=== PATIENT | female | born 1995 | race Caucasian/White ===

== ENCOUNTER 2021-12-22 10:27 | Outpatient (CLI) | payer BC, SELFPAY ==
[2021-12-22 12:34] LABS: Cholesterol* 192 mg/dL (90-199); HDL Cholesterol* 45 mg/dL (>=50); LDL Cholesterol Calculated 127 mg/dL (<100); Triglycerides* 100 mg/dL (40-149)
[2021-12-22 12:34] LABS: Glucose* 93 mg/dL (60-115)
[2021-12-24 02:58] LABS: Estradiol Premenol Female 54 pg/mL
[2021-12-24 18:00] LABS: Follicle Stimulating Hormone 6.5 IU/L
[2021-12-25 21:34] LABS: Anti-Mullerian Hormone 3.936 ng/mL (0.401-16.015)
== END 2021-12-22 10:28 | disposition home or self-care (01) ==
PROVIDERS: Visit Provider Physician Assistant
DX: R73.03 Prediabetes (principal); Z31.41 Encounter for fertility testing; Z13.6 Encounter for screening for cardiovascular disorders
CPT/HCPCS: 80061; 82670; 82947; 83001; 83520

== ENCOUNTER 2023-04-02 10:39 | Outpatient (CLI) | payer BC, SELFPAY ==
[2023-04-02 15:50] LABS: Chlamydia DNA Amplified* NOT DETECTED (No Detected); GC DNA Amplified* NOT DETECTED (No Detected)
== END 2023-04-02 10:40 | disposition home or self-care (01) ==
PROVIDERS: Visit Provider Physician Assistant
DX: O09.811 Supervision of pregnancy resulting from assisted reproductive technology, first trimester (principal); Z3A.10 10 weeks gestation of pregnancy
CPT/HCPCS: 86317; 86592; 86703; 86704; 86706; 86762; 86778; 86787; 86803; 86850; 86900; 86901; 87086; 87340; 87491; 87591

== ENCOUNTER 2023-06-13 08:09 | Outpatient (CLI) | payer BC, SELFPAY ==
--- OUTSIDE RECORDS SUMMARY | 2023-06-13 08:12 | XMS_ITS | Encounter Summary ---
Author Name Unknown Organization [facility] Address [address] [place] [address]. [place] [address] Care Team Providers Care Regrader Name Role Phone Katelyn Khan APRN COORDINATOR CARDIOPULMONARY SERVICES Primary Care Pro vider Katelyn Khan APRN COORDINATOR CARDIOPULMONARY SERVICES Unavailable Encounter Details Date Type Department Care Team (Late st Contact Info) Description 04/16/2023 MyC Medical Advice M [facility] [address] [facility] [address] [place] [address] Ema Guillory Social History Tobacco Use Types Packs/Day Years Used Date Smoking Tobacco: Never Smokeless Tobacco: Never Alcohol Use Standard Drinks/Week Comments Yes 0 (1 standard drink = 0.6 oz pur e alcohol) One drink per week Social Connection and Isolation Panel [NHANES] A nswer Date Recorded In a typical week, how many times do you talk on the phone with family, friends, or neighbors? Once a week 10/22/2022 How often do you get together with friends or re latives? Once a week 10/22/2022 How often do you attend methodist or moravian serv ices? Never 10/22/2022 Do you belong to any clubs o r organizations such as methodist groups, unions, fraternal or athletic groups, or school groups? No 10/22/2022 Attends Club or Organization Meetings Not on airam e 10/22/2022 Are you , , di vorced, , never , or living with a partner? 10/22/2022 AUDIT-C Answer Date Recorded Q1: How often do you have a drink containing alc ohol? 2-4 times a month 10/22/2022 Q2: How many drinks containi ng alcohol do you have on a typical day when you are drinking? 1 or 2 10/22/2022 Q3: How often do you have si x or more drinks on one occasion? Less than monthly 10/22/2022 Overall Financial Resource Strain (CARDIA) Answe r Date Recorded How hard is it for you to pa y for the very basics like food, housing, medical care, and heating? Not very hard 10/22/2022 PHQ-2 Answer Date Recorded PHQ-2 Score 0 10/22/2022 [facility] - Occupational Stress Questionnaire Answer Date Recorded Do you feel stress - tense, restless, nervous, or anxious, or unable to sleep at night because your mind is troubled all the time - these days? To some extent 10/22/2022 Exercise Vital Sign Answer Date Recorde d On average, how many days pe r week do you engage in moderate to strenuous exercise (like a brisk walk)? 6 days 10/22/2022 On average, how many minutes do you engage in exercise at this level? 60 min 10/22/2022 Hunger Vital Sign Answer Date Recorded Within the past 12 months, y ou worried that your food would run out before you got the money to buy more. Never true 10/23/19 23 Within the past 12 months, t he food you bought just didn't last and you didn't have money to get more. Never true 10/22/2022 PRAPARE - Transportation Answer Date Re corded In the past 12 months, has l ack of transportation kept you from medical appointments or from getting medications? No 10/02 In the past 12 months, has l ack of transportation kept you from meetings, work, or from getting things needed for daily living? No 10/22/2022 Housing Stability Vital Sign Answer Durga e Recorded In the last 12 months, was t here a time when you were not able to pay the mortgage or rent on time? No 10/22/2022 In the last 12 months, how many places have you lived? 1 10/22/2022 In the last 12 months, was t here a time when you did not have a steady place to sleep or slept in a nursing home (including now)? No 10/22/2022 Adolescent Education Answer Date Record ed Getting School Help Needed Not on file 02/22 Education Answer Date Recorded What is the highest level of school you have completed or the highest degree you have received? Associate degree: academic program 06/12/2019 Sex and Gender Information Value Date Recorded Sex Assigned at Female 04/04/2019 1:33 AM CDT Gender Identity Female 04/04/2019 1:33 AM CDT Sexual Orientation Bisexual 04/04/2019 1: 33 AM CDT documented as of this encounter Plan of Treatment Upcoming Encounters Date Type Department Care Team (Late st Contact Info) Description 12/09/2023 10:00 AM CDT Office Visit [facility] [address] [place] [address] Drive [address] [place] [phone] Katelyn Khan APRN COORDINATOR CARDIOPULMONARY SERVICES [address] [place] [address] [place] [address] documented as of this encounter Visit Diagnoses Not on filedocumented in this encounter Additional Health Concerns Assessment Noted Time PHQ-9 Depression Total Score: 7 10/23/19 23 10:13 AM CDT documented as of this encounter Care Teams Regrader Relationship Specialty Start Date End Date Katelyn Khan APRN COORDINATOR CARDIOPULMONARY SERVICES [address] [place] [address] [place] [address] PCP - General Family Practice 06/12/19 Katelyn Khan APRN COORDINATOR CARDIOPULMONARY SERVICES [address] [place] [address] [place] [address] Assigned PCP 05/21/19 documented as of this encounter
--- OUTSIDE RECORDS SUMMARY | 2023-06-13 08:12 | XMS_ITS | Referral Summary ---
Author Name Unknown [facility] Address [address] [place] [address] Care Team Providers Care Paving Foreman Name Role Phone Katelyn Khan APRN, CNP Primary Care Pro vider Katelyn Khan APRN, CNP Unavailable Encounters Date Type Department Care Team Description 06/04/2023 7:00 AM JET OPERATOR Virtual Visit [address] [place] [phone] Katelyn Khan APRN CNP Moderate episode of recurrent major depressive disorder (H); Anxiety 05/15/[address] [place] [address] Katelyn Khan APRN CNP Medication Refill 04/16/2023 MyC Medical Advice [address] [place] [address] Ema Guillory 04/14/[address] [place] [address] Katelyn Khan APRN CNP Medication Refill from Last 3 Months Allergies Active Allergy Reactions Criticality Noted Date Comments Seasonal Allergies 01/25/2021 Medications Medication Sig Dispensed Refills Start Date End Date Status fluticasone (VERAMYST) 27.5 MCG/SPRAY spray [place] 2 sprays into both nostrils daily 0 Active cetirizine (ZYRTEC) 10 MG tablet Take 10 mg by mouth daily 0 Active Vit-Fe Fumarate-FA ( MULTIVITAMIN PLUS IRON) 27-1 MG TABS 0 Active pyridOXINE (VITAMIN B-6) 25 MG tablet 0 03/02/2023 Active famotidine (PEPCID) 20 MG tablet 0 05/28/2023 Active aspirin 81 MG EC tablet 0 04/08/2023 Active doxylamine (UNISOM) 25 MG TABS tablet 0 03/02/2023 Active buPROPion (WELLBUTRIN XL) 150 MG 24 hr tabletIndications :Moderate episode of recurrent major depressive disorder (H),Anxiety Take 1 tablet (150 mg) by mouth every morning 90 tablet 1 06/04/2023 Active fluconazole (DIFLUCAN) 200 MG tablet TAKE 1 TABLET BY MOUTH 1 TIME ONLY 0 10/25/2021 4 Discontinued norethindrone (AYGESTIN) 5 MG tablet 0 10/17/2022 4 Discontinued buPROPion (WELLBUTRIN XL) 150 MG 24 hr tabletIndications :Moderate episode of recurrent major depressive disorder (H),Anxiety,Morbi d obesity (H) Take 1 tablet (150 mg) by mouth every morning 30 tablet 0 04/16/2023 3 Discontinued buPROPion (WELLBUTRIN XL) 150 MG 24 hr tabletIndications :Moderate episode of recurrent major depressive disorder (H),Anxiety,Morbi d obesity (H) TAKE 1 TABLET(150 MG) BY MOUTH EVERY MORNING 30 tablet 0 05/15/2023 4 Discontinued(Lio dougherty (No AVS)) Active Problems Problem Noted Date Diagnosed Date Morbid obesity 09/29/2020 Moderate episode of recurrent major depressive d isorder 06/12/2019 Anxiety 06/12/2019 Depression with anxiety 06/20/2016 Acne 06/15/2014 Allergic rhinitis 06/15/2014 Dysmenorrhea 05/25/2014 Resolved Problems Problem Noted Date Diagnosed Date Resolved Date Pain in joint involving ankle and foot 08/24/2013 09/29/2020 Edema 08/24/2013 09/29/2020 Ankle sprain 08/24/2013 09/29/2020 Immunizations Name Administration Dates Next Due COVID-19 Bivalent 12+ (Pfizer) 10/22/2022 COVID-19 MONOVALENT 12+ (Pfizer) 06/21/2021,09/02,09/06/2020 DTAP (<7y) 10/18/2000, 7,04/20/1996,02/16,1995 Flu, Unspecified 05/03/1998,03/19/1998 HEPATITIS A (PEDS 12M-18Y) 01/13/2007 HPV Quadrivalent 04/17/2011,03/11/2009, 8 HepA, Unspecified 01/14/2006 HepA-Peds, Unspecified 01/14/2006 HepB, Unspecified 04/20/1996,1995,10/31/18 96 Hib, Unspecified 04/19/1997, 6,02/17/1996,12/15 Influenza (H1N1) 05/05/2009 Influenza Vaccine >6 months,quad, PF ,04/11/2020,06/12/2019,03/11 MMR 11/02/1999,01/15/1997 Meningococcal ACWY (Menactra??) 05/02/2012,01/13,01/13/2007 Meningococcal Mcv4 Conjugate,unspecified 01/13/2007 Polio, Unspecified 04/20/1996,02/17/1996, 996 Poliovirus, inactivated (IPV) 11/02/1999 Rabies - IM Diploid Cell Culture 06/19/2019,06/03 TDAP Vaccine (Adacel) 07/23/2016,01/13/2007 Varicella 01/13/2007,01/15/1997 Social History Tobacco Use Types Packs/Day Years [...] week 10/22/2022 How often do you attend yazidism or protestant serv ices? Never 10/22/2022 Do you belong to any clubs o r organizations such as yazidism groups, unions, fraternal or athletic groups, or [...] on one occasion? Less than monthly 10/22/2022 PHQ-2 Answer Date Recorded PHQ-2 Score 0 10/22/2022 [facility] - Occupational Stress Questionnaire Answer Date Recorded [...] exercise at this level? 60 min 10/22/2022 Adolescent Education Answer Date Record ed Getting School Help Needed Not on file 02/22 Food Insecurity Answer Date Recorded Within the past 12 months, d id you worry that your food would run out before you got money to buy more? No 06/01/2023 Within the past 12 months, d id the food you bought just not last and you didn? t have money to get more? No 06/01/2023 Housing Stability Answer Date Recorded Do you have housing? Yes 06/01/2023 Are you worried about losing your housing? No 06/01/2023 Financial Resource Strain Answer Date R ecorded Within the past 12 months, h ave you or your family members you live with been unable to get utilities (heat, electricity) when it was really needed? No 06/01/2023 Transportation Needs Answer Date Record ed Within the past 12 months, h as lack of transportation kept you from medical appointments, getting your medicines, non-medical meetings or appointments, work, or from getting things that you need? No 06/01/2023 Education Answer Date Recorded What is the highest level of school you have completed or the highest degree you have received? Associate degree: academic program 06/12/2019 Sex and Gender Information Value Date Recorded Sex Assigned at Female 04/04/2019 1:33 AM CDT Gender Identity Female 04/04/2019 1:33 AM CDT Sexual Orientation Bisexual 04/04/2019 1: 33 AM CDT Last Filed Vital Signs Vital Sign Reading Time Taken Comments Blood Pressure 102/74 10/22/2022 10:34 AM CDT Pulse 88 10/22/2022 10:34 AM CDT Temperature 36.3 ??C (97.4 ??F) 10/22/2022 10:34 AM C DT Respiratory Rate 16 10/22/2022 10:34 AM CDT Oxygen Saturation 100% 10/22/2022 10:34 AM CDT Inhaled Oxygen Concentration - - Weight 119.7 kg (264 lb) 10/22/2022 10:34 AM CDT Height 173 cm (5' 8.11) 10/22/2022 10:34 AM CDT Body Mass Index 40.01 10/22/2022 10:34 AM CDT Plan of Treatment Upcoming Encounters Date Type Department Care Team (Late st Contact Info) Description 12/09/2023 10:00 AM CDT [facility] [address] [place] [address] Katelyn Khan, [facility] [address] [facility] [place] [address] Care Teams Paving Foreman Relationship Specialty Start Date End Date Katelyn Khan APRN BIODIESEL ENGINE SPECIALIST [address] [facility] [place] [address] PCP - General Family Practice 06/12/19 Katelyn Khan APRN BIODIESEL ENGINE SPECIALIST [address] [facility] [place] [address] Assigned PCP 05/21/19
--- OUTSIDE RECORDS SUMMARY | 2023-06-13 08:12 | XMS_ITS | Clinical Summary ---
Author Name Unknown Organization [facility] Address [address] [place] [address] Care Team Providers Care Bi Application Developer Name Role Phone Katelyn Khan APRN CHEMICAL PREPARER Primary Care Pro vider Katelyn Khan APRN CHEMICAL PREPARER Unavailable Allergies Active Allergy Reactions Criticality Noted Date Comments Seasonal Allergies 01/25/2021 Medications Medication Sig Dispensed Refills Start Date End Date Status fluticasone (VERAMYST) 27.5 MCG/SPRAY spray [place] 2 sprays into both nostrils daily 0 [...] EVERY MORNING 30 tablet 0 05/15/2023 4 Discontinued(Reo rder (No AVS)) Active Problems Problem Noted Date Diagnosed Date Morbid obesity 09/29/2020 Moderate episode of recurrent major depressive d isorder 06/12/2019 Anxiety 06/12/2019 Depression with anxiety 06/20/2016 Acne 06/15/2014 Allergic rhinitis 06/15/2014 Dysmenorrhea 05/25/2014 Resolved Problems Problem Noted Date Diagnosed Date Resolved Date Pain in joint involving ankle and foot 08/24/2013 09/29/2020 Edema 08/24/2013 09/29/2020 Ankle sprain 08/24/2013 09/29/2020 Encounters Date Type Department Care Team Description 06/04/2023 7:00 AM TELETRAY OPERATOR Virtual Visit M [address] [place] [address] Katelyn Khan, MARS ZARAGOZA Moderate episode of recurrent major depressive disorder (H); Anxiety 05/15/2023 Refill M [address] [place] [address] Katelyn Khan, MARS CHEMICAL PREPARER Medication Refill 04/16/2023 MyC Medical Advice M [address] [place] [address] Ema Guillory 04/14/2023 Refill M [address] [place] [address] Katelyn Khan, PLASTIC PARTS FABRICATOR CHEMICAL PREPARER Medication Refill from Last 3 Months Immunizations Name Administration Dates Next Due COVID-19 [...] 06/19/2019,06/03 TDAP Vaccine (Adacel) 07/23/2016,01/13/2007 Varicella 01/13/2007,01/15/1997 Family History Medical History Relation Comments Cerebrovascular Disease Father Prostate Cancer Maternal Grandfather Other Cancer Mother Ovarian cancer Ovarian Cancer Mother Depression Other Great uncle-aranda rnal Diabetes Paternal Grandfather Prostate Cancer Paternal Grandfather Relation Status Comments Father Maternal Grandfather Mother Other Paternal Grandfather Social History Tobacco Use Types Packs/Day Years [...] week 10/22/2022 How often do you attend christianity or gnosticist serv ices? Never 10/22/2022 Do you belong to any clubs o r organizations such as christianity groups, unions, fraternal or athletic groups, or [...] Answer Date Recorded PHQ-2 Score 0 10/22/2022 [facility] - Occupational [...] Description 12/09/2023 10:00 AM CDT Office Visit [facility] [address] [facility] [place] [address] Katelyn Khan, MARS CHEMICAL PREPARER [address] [facility] [place] [address] Health Maintenance Due Date Last Done Comments PAP 04/03/2022 04/03/2019, 02/2018, 06/11/2017 COVID-19 Vaccine ( season) 2023 10/22/2022, 06/21/2021, 09/27/2020, Additional history exists PHQ-9 04/24/2023 10/22/2022, 12/0 11/2021, 09/15/2021, Additional history exists ANNUAL REVIEW OF HM ORDERS 10/23/202310/22, 09/15/2021, 09/29/2020 YEARLY PREVENTIVE VISIT 10/23/2023 10/23/19 23, 08/10/2021, 12/30/2020, Additional history exists ADVANCE CARE PLANNING 09/29/2025 09/29/2020 DTAP/TDAP/TD IMMUNIZATION (8 - Td or Tdap) 07/23/2026 07/23/2016, 01/13/2007, 10/18/2000, Additional history exists HEPATITIS B IMMUNIZATION Completed 996, 04/20/1996, 1995, Additional history exists IPV IMMUNIZATION Completed 11/02/1999, , 04/20/1996, Additional history exists HPV IMMUNIZATION Completed 04/17/2011, , 03/11/2009, Additional history exists MENINGITIS IMMUNIZATION Completed 05/02/20 12, 01/13/2007, 01/13/2007, Additional history exists CHLAMYDIA SCREENING Discontinued 06/12/2019 ( Declined), 06/11/2017 HIV SCREENING Addressed 06/12/2019 (Declined) Overr idden with the intention of not completing the topic DEPRESSION ACTION PLAN Completed 09/29/2020 HEPATITIS C SCREENING Completed 08/11/2021 INFLUENZA VACCINE Completed 04/18/2023, , 06/21/2021, Additional history exists Pneumococcal Vaccine: Pediatrics (0 to 5 Years) and At-Risk Patients (6 to 64 Years) Aged Out No longer eligible based on patient's age to complete this topic RSV MONOCLONAL ANTIBODY Aged Out No l onger eligible based on patient's age to complete this topic Care Teams Bi Application Developer Relationship Specialty Start Date End Date Katelyn Khan APRN CHEMICAL PREPARER [address] [place] [address] [place] [address] PCP - General Family Practice 06/12/19 Katelyn Khan APRN CHEMICAL PREPARER [address] [place] [address] DR RICHADRS, KALANI [id number] Assigned PCP 05/21/19
--- OUTSIDE RECORDS SUMMARY | 2023-06-13 08:12 | XMS_ITS | Clinical Summary ---
Author Name Unknown Organization [facility] Address [address] [facility] [place] [address] Care Team Providers Care Newspaper Correspondent Name Role Phone Provider, No Primary Primary Care Provider Unava ilable Allergies Active Allergy Reactions Criticality Noted Date Comments Environmental Substances Other Low 07/04/2018 Pollen- Itchy/swollen eyes Medications Medication Sig Dispensed Refills Start Date End Date Status cetirizine (AKA: ZYRTEC) 10 mg oral Tablet Take 10 mg by mouth once daily. 0 Active fluticasone propionate (FLONASE ALLERGY RELIEF NASL) 2 Sprays by nasal route once daily. 0 Active oral contraceptive tablet (AKA: CONTROL TABLET) oral Tablet Take 1 tablet by mouth. 0 Active Active Problems No known active problems Social History Tobacco Use Types Packs/Day Years Used Date Smoking Tobacco: Never Smokeless Tobacco: Never Alcohol Use Standard Drinks/Week Comments Yes 0 (1 standard drink = 0.6 oz pur e alcohol) occational Sex and Gender Information Value Date Recorded Sex Assigned at Not on file Gender Identity Not on file Sexual Orientation Not on file Last Filed Vital Signs Vital Sign Reading Time Taken Comments Blood Pressure 143/92 07/04/2018 12:35 PM CORPORATE SALES TRAINER Pulse 85 07/04/2018 12:35 PM CORPORATE SALES TRAINER Temperature 36.7 ??C (98 ??F) 07/04/2018 12:35 PM CORPORATE SALES TRAINER Respiratory Rate 16 07/04/2018 12:35 PM CORPORATE SALES TRAINER Oxygen Saturation 99% 07/04/2018 12:35 PM CORPORATE SALES TRAINER Inhaled Oxygen Concentration - - Weight 111.6 kg (246 lb) 07/04/2018 12:35 PM CORPORATE SALES TRAINER Height - - Body Mass Index - - Plan of Treatment Not on file Care Teams Newspaper Correspondent Relationship Specialty Start Date End Date Provider, [place] [address] PCP - General 06/13/18 Additional Source Comments PLEASE NOTE: Replies to this message will not be received.[facility]
--- OUTSIDE RECORDS SUMMARY | 2023-06-13 08:12 | XMS_ITS | Encounter Summary ---
Author Name Unknown Organization [facility] Address [address] [place] [address]. [place] [address] Care Team Providers Care Automatic I Threading Machine Feeder Name Role Phone Katelyn Khan APRN MEDICAL COLLECTIONS Primary Care Pro vider Katelyn Khan APRN MEDICAL COLLECTIONS Unavailable Reason for Visit * Reason Comments Medication Refill Encounter Details Date Type Department Care Team (Late st Contact Info) Description 05/15/2023 Refill [facility] [address] [place] [address] Katelyn Khan APRN MEDICAL COLLECTIONS [facility] KALANI RICHARDS [id number] Medication Refill Social History Tobacco Use Types Packs/Day Years [...] week 10/22/2022 How often do you attend protestant or adventist serv ices? Never 10/22/2022 Do you belong to any clubs o r organizations such as protestant groups, unions, fraternal or athletic groups, or [...] Answer Date Recorded PHQ-2 Score 0 10/22/2022 [facility] - Occupational [...] place to sleep or slept in a long-term (including now)? No 10/22/2022 Adolescent Education Answer [...] Description 12/09/2023 10:00 AM CDT Office Visit [facility] [address] [place] [address] Drive [address] [place] [phone] Katelyn Khan APRN MEDICAL COLLECTIONS [address] [place] [address] [place] [address] documented as of this encounter Visit Diagnoses Diagnosis Moderate episode of recurrent major depressive disorder (H) Anxiety Anxiety state, unspecified Morbid obesity (H) Morbid obesity documented in this encounter Additional Health Concerns Assessment Noted Time PHQ-9 Depression Total Score: 7 10/23/19 23 10:13 AM CDT documented as of this encounter Care Teams Automatic I Threading Machine Feeder Relationship Specialty Start Date End Date Katelyn Khan APRN MEDICAL COLLECTIONS [address] [place] [address] [place] [address] PCP - General Family Practice 06/12/19 Katelyn Khan APRN MEDICAL COLLECTIONS [address] [place] [address] [place] [address] Assigned PCP 05/21/19 documented as of this encounter
--- OUTSIDE RECORDS SUMMARY | 2023-06-13 08:12 | XMS_ITS | Encounter Summary ---
Author Name Unknown Organization [place] Address [address] [place] [address]. [place] [address] Care Team Providers Care Gluing Machine Feeder Name Role Phone Katelyn Feliciano APRN AFRICAN HISTORY PROFESSOR Primary Care Pro vider Katelyn Feliciano APRN AFRICAN HISTORY PROFESSOR Unavailable Encounter Details Date Type Department Care Team (Late st Contact Info) Description 06/04/2023 7:00 AM FORMULA ROOM WORKER Virtual Visit [facility] [place] [address] [place] [phone] Katelyn Feliciano APRN [place] [id number] [facility] [place] R[place]ARDS [id number] Moderate episode of recurrent major depressive disorder (H); Anxiety Social History Tobacco Use Types Packs/Day Years [...] week 10/22/2022 How often do you attend congregation or taoist serv ices? Never 10/22/2022 Do you belong to any clubs o r organizations such as congregation groups, unions, fraternal or athletic groups, or [...] Answer Date Recorded PHQ-2 Score 0 10/22/2022 [facility] of Occupat ional Health - Occupational Stress [...] AM CDT documented as of this encounter Progress Notes * Katelyn Feliciano APRN CNP - 06/04/2023 7:00 AM CST Elva is a 27 year old who is being evaluated via a billable video visit. How would you like to obtain your AVS? MyChart If the video visit is dropped, the invitation should be resent by: Will anyone else be joining your video visit? No Assessment & Plan Moderate episode of recurrent major depressive disorder (H) Reviewed potential risk during , she had discusssed this with her OB team, no concerns will continue as is. - buPROPion (WELLBUTRIN XL) 150 MG 24 hr tablet; Take 1 tablet (150 mg) by mouth every morning Anxiety stable - buPROPion (WELLBUTRIN XL) 150 MG 24 hr tablet; Take 1 tablet (150 mg) by mouth every morning BMI: Estimated body mass index is 40.01 kg/m?? as calculated from the following: Height as of 10/22/22: 1.73 m (5' 8.11). Weight as of 10/22/22: 119.7 kg (264 lb). Katelyn Feliciano APRN CNP [facility] [place] Elva is a 27 year old, presenting for the following health issues: No chief complaint on file. She is 19 wks . History of depression and anxiety, doing well on current regime. 09/15/2021 9:10 AM 05/09/2022 11:23 AM 10/22/2022 10:13 AM PHQ PHQ-9 Total Score 3 3 7 Q9: Thoughts of better off /self-harm past 2 weeks Not at all Not at all Not at all 08/10/2021 4:18 PM 05/09/2022 11:24 AM 06/01/2023 10:33 AM YADY-7 SCORE Total Score 6 (mild anxiety) 2 (minimal anxiety) 4 (minimal anxiety) Total Score 6 2 4 HPI Review of Systems Objective Vitals: No vitals were obtained today due to virtual visit. Physical Exam GENERAL: Healthy, alert and no distress EYES: Eyes grossly normal to inspection. No discharge or erythema, or obvious scleral/conjunctival abnormalities. RESP: No audible wheeze, cough, or visible cyanosis. No visible retractions or increased work of breathing. SKIN: Visible skin clear. No significant rash, abnormal pigmentation or lesions. NEURO: Cranial nerves grossly intact. Mentation and speech appropriate for age. PSYCH: Mentation appears normal, affect normal/bright, judgement and insight intact, normal speech and appearance well-groomed. Video-Visit Details Type of service: Video Visit Originating Location (pt. Location): Home Distant Location (provider location): On-site Platform used for Video Visit: Rubina ULA ROOM WORKER documented in this encounter Plan of Treatment Upcoming Encounters Date Type Department Care Team (Late st Contact Info) Description 12/09/2023 10:00 AM CDT Office Visit [facility] [place] [address] [place] [address] Drive [address] [place] [phone] Katelyn Feliciano APRN CNP [address] [place] [address] [place] [address] documented as of this encounter Visit Diagnoses Diagnosis Moderate episode of recurrent major depressive disorder (H) Anxiety Anxiety state, unspecified documented in this encounter Additional Health Concerns Assessment Noted Time PHQ-9 Depression Total Score: 7 10/23/19 23 10:13 AM CDT documented as of this encounter Care Teams Gluing Machine Feeder Relationship Specialty Start Date End Date Katelyn Feliciano APRN CNP [address] [place] [address] [place] [address] PCP - General Family Practice 06/12/19 Katelyn Feliciano APRN CNP [address] [place] [address] [place] [address] Assigned PCP 05/21/19 documented as of this encounter
--- OUTSIDE RECORDS SUMMARY | 2023-06-13 08:13 | XMS_ITS | Encounter Summary ---
Author Name Unknown Organization [place] Address [facility] [place] [address] Care Team Providers Care Tobacco Weigher Name Role Phone Katelyn Khan APRN SENIOR VICE PRESIDENT Primary Care Pro vider Juan Antonio Arteaga RN Unavailable Unav ailable Katelyn Khan APRN SENIOR VICE PRESIDENT Unavailable Harish Zavaleta SENIOR MARKETING MANAGER Unavailable Encounter Details Date Type Department Care Team (Late st Contact Info) Description 09/14/2019 MyC Medical Advice [facility] [place] [address] [place] [phone] Kim Quintanilla, YASMIN Social History Tobacco Use Types Packs/Day Years Used Date Smoking Tobacco: Never Smokeless Tobacco: Never Alcohol Use Standard Drinks/Week Comments Yes 0 (1 standard drink = 0.6 oz pur e alcohol) One drink per week Social Connection and Isolat ion Panel [NHANES] Answer Date Recorded Frequency of Communication w ith Friends and Family More than three times a week 06/12/2019 Frequency of Social Gatherin gs with Friends and Family More than three times a week 06/12/2019 Attends Adventism Services Never 06/12 Active Member of Clubs or Organizations No 06/12/2019 Attends Club or Organization Meetings Never 06/12/2019 Marital Status Living with partner 06/12/2019 Overall Financial Resource Strain (CARDIA) Answe r Date Recorded How hard is it for you to pa y for the very basics like food, housing, medical care, and heating? Somewhat hard 06/12/2019 PHQ-2 Answer Date Recorded PHQ-2 Score 1 06/12/2019 [facility] [place] of Occupat ional Health - Occupational Stress Questionnaire Answer Date Recorded Feeling of Stress Only a little 06/12/2019 Exercise Vital Sign Answer Date Recorde d Days of Exercise per Week 0 days 2019 Minutes of Exercise per Session 30 min 06/12/2019 Hunger Vital Sign Answer Date Recorded Within the past 12 months, y ou worried that your food would run out before you got the money to buy more. Sometimes true Within the past 12 months, t he food you bought just didn't last and you didn't have money to get more. Never true 03/2020 PRAPARE - Transportation Answer Date Re corded In the past 12 months, has l ack of transportation kept you from medical appointments or from getting medications? No 06/03 In the past 12 months, has l ack of transportation kept you from meetings, work, or from getting things needed for daily living? No 06/12/2019 Education Answer Date Recorded What is the [...] Description 12/09/2023 10:00 AM CDT Office Visit [facility] [place] [address] [place] [phone] Katelyn Khan APRN [facility] [address] [facility] [place] [address] documented as of this encounter Visit Diagnoses Not on filedocumented in this encounter Additional Health Concerns Infection Onset Date Last Indicated Resolved Time Rule Out COVID-19 01/25/2021 01/25/2021 01/25/2021 5:51 PM CDT Assessment Noted Time PHQ-9 Depression Total Score: 11 020 11:29 AM HAND SANDER documented as of this encounter Care Teams Tobacco Weigher Relationship Specialty Start Date End Date Katelyn Khan APRN SENIOR VICE PRESIDENT [address] [facility] [place] [address] PCP - General Family Practice 06/12/19 Juan Antonio Arteaga, RN Personal Advocate & Liaison (PAL) 06/15/19 11/07/20 Katelyn Khan APRN SENIOR VICE PRESIDENT [address] [facility] [place] [address] Assigned PCP 05/21/19 Harish Zavaleta LMFT [address] [place] [address] Assigned Behavioral Health Provider 04/23/21 05/06/21 documented as of this encounter
--- OUTSIDE RECORDS SUMMARY | 2023-06-13 08:13 | XMS_ITS | Encounter Summary ---
Author Name Unknown Organization [place] Address [facility] [place] [place] [address] Care Team Providers Care Nursing Specialist Name Role Phone Katelyn Khan APRN FLAKEBOARD LINE TENDER Primary Care Pro vider Juan Antonio Arteaga RN Unavailable Unav ailable Katelyn Khan APRN FLAKEBOARD LINE TENDER Unavailable Harish Zavaleta [facility] Unavailable Encounter Details Date Type Department Care Team (Late st Contact Info) Description 10/02/2019 MyC Medical Advice [facility] [address] [place] [phone] Daria Guevara CMA Social History Tobacco Use Types Packs/Day Years [...] than three times a week 06/12/2019 Attends Scientology Services Never 06/12 Active Member of Clubs or Organizations No 06/12/2019 Attends Club or Organization Meetings Never 06/12/2019 Marital Status Living with partner 06/12/2019 Overall Financial Resource Strain (CARDIA) Answe r Date Recorded How hard is it for you to pa y for the very basics like food, housing, medical care, and heating? Somewhat hard 06/12/2019 PHQ-2 Answer Date Recorded PHQ-2 Score 2 10/06/2019 [facility] [place] of Occupat ional Health - Occupational Stress [...] Description 12/09/2023 10:00 AM CDT Office Visit [facility] [place] [address] [place] [phone] Katelyn Khan APRN [facility] [address] [facility] [place] [address] documented as of this encounter Visit Diagnoses Not on filedocumented in this encounter Additional Health Concerns Infection Onset Date Last Indicated Resolved Time Rule Out COVID-19 01/25/2021 01/25/2021 01/25/2021 5:51 PM CDT Assessment Noted Time PHQ-9 Depression Total Score: 12 020 7:03 AM CDT documented as of this encounter Care Teams Nursing Specialist Relationship Specialty Start Date End Date Katelyn Khan APRN FLAKEBOARD LINE TENDER [address] [facility] [place] [address] PCP - General Family Practice 06/12/19 Juan Antonio Arteaga, RN Personal Advocate & Liaison (PAL) 06/15/19 11/07/20 Katelyn Khan APRN FLAKEBOARD LINE TENDER [address] [facility] [place] [address] Assigned PCP 05/21/19 Harish Zavaleta LMFT [address] [place] [address] Assigned Behavioral Health Provider 04/23/21 05/06/21 documented as of this encounter
--- OUTSIDE RECORDS SUMMARY | 2023-06-13 08:13 | XMS_ITS | Encounter Summary ---
Author Name Unknown Organization [place] Address [facility] [place] [address] Care Team Providers Care Canvas Repairer Name Role Phone Katelyn Khan APRN POWERHOUSE ATTENDANT Primary Care Pro vider Katelyn Khan APRN POWERHOUSE ATTENDANT Unavailable Encounter Details Date Type Department Care Team (Late st Contact Info) Description 09/17/2022 [place] Medical Adv[address] [facility] [address] [facility] [address] [place] [phone] Terri Coffey Social History Tobacco Use Types Packs/Day Years [...] than three times a week 06/12/2019 Attends Congregation Services Never 06/12 Active Member of Clubs or Organizations No 06/12/2019 Attends Club or Organization Meetings Never 06/12/2019 Marital Status Living with partner 06/12/2019 Overall Financial Resource Strain (CARDIA) Answe r Date Recorded How hard is it for you to pa y for the very basics like food, housing, medical care, and heating? Somewhat hard 06/12/2019 PHQ-2 Answer Date Recorded PHQ-2 Total Score (Adult) - Positive if 3 or more points; Administer PHQ-9 if positive 0 05/09/2022 [facility] [place] of Occupat ional Health - Occupational Stress [...] Orientation Bisexual 04/04/2019 1: 33 AM CDT COVID-19 Exposure Response Date Recorded In the last 10 days, have yo u been in contact with someone who was confirmed or suspected to have Coronavirus/COVID-19? No / Unsure 09/17/2022 2:57 PM CDT documented as of this encounter Plan of Treatment Upcoming Encounters Date Type Department Care Team (Late st Contact Info) Description 12/09/2023 10:00 AM CDT Office Visit [facility] [place] [address] [place] [phone] Katelyn Khan, BOTTLING LINE OPERATOR POWERHOUSE ATTENDANT [address] [facility] [place] [id number] documented as of this encounter Visit Diagnoses Not on filedocumented in this encounter Additional Health Concerns Assessment Noted Time PHQ-9 Depression Total Score: 3 05/09/20 22 11:23 AM RISK REDUCTION COUNSELOR documented as of this encounter Care Teams Canvas Repairer Relationship Specialty Start Date End Date Katelyn Khan APRN POWERHOUSE ATTENDANT [address] [facility] [place] [address] PCP - General Family Practice 06/12/19 Katelyn Khan APRN POWERHOUSE ATTENDANT [address] [facility] [place] [address] Assigned PCP 05/21/19 documented as of this encounter
--- OUTSIDE RECORDS SUMMARY | 2023-06-13 08:13 | XMS_ITS | Encounter Summary ---
Author Name Unknown Organization [place] Address [address] [place] [address] Care Team Providers Care Crayon Molding Machine Operator Name Role Phone Katelyn Khan APRN BARREL RIFLER Primary Care Pro vider Juan Antonio Arteaga RN Unavailable Unav ailable Katelyn Khan APRN [facility] Unavailable Harish Zavaleta [facility] Unavailable Encounter Details Date Type Department Care Team (Latest Contact Info) Description 06/12/2019 Historic Results Social History Tobacco Use Types Packs/Day Years [...] than three times a week 06/12/2019 Attends Judaism Services Never 06/12 Active Member of Clubs [...] Answer Date Recorded PHQ-2 Score 1 06/12/2019 [facility] of Occupat ional Health - Occupational Stress [...] Description 12/09/2023 10:00 AM CDT Office Visit [facility] [place] [address] [facility] [address] [facility] [address] [place] [phone] Katelyn Khan APRN [place] [address] [place] [address] [place] [address] documented as of this encounter Visit Diagnoses Not on filedocumented in this encounter Additional Health Concerns Infection Onset Date Last Indicated Resolved Time Rule Out COVID-19 01/25/2021 01/25/2021 01/25/2021 5:51 PM CDT Assessment Noted Time PHQ-9 Depression Total Score: 11 020 11:29 AM CARE DIRECTOR RN documented as of this encounter Care Teams Crayon Molding Machine Operator Relationship Specialty Start Date End Date Katelyn Khan, METAL INSPECTOR [place] [address] [facility] [place] [address] PCP - General Family Practice 06/12/19 Juan Antonio Arteaga, RN Personal Advocate & Liaison (PAL) 06/15/19 11/07/20 Katelyn Khan, METAL INSPECTOR [place]ER [address] [facility] [place] [address] Assigned PCP 05/21/19 Harish Zavaleta LMFT [address] [place] [address] [address] [place] [address] Assigned Behavioral Health Provider 04/23/21 05/06/21 documented as of this encounter
--- OUTSIDE RECORDS SUMMARY | 2023-06-13 08:13 | XMS_ITS | Encounter Summary ---
Author Name Unknown Organization [place] Address [facility] [place] [address] Care Team Providers Care Warehouse Delivery Manager Name Role Phone Katelyn Khan APRN WEB DEVELOPER PROGRAMMER Primary Care Pro vider Katelyn Khan APRN WEB DEVELOPER PROGRAMMER Unavailable Encounter Details Date Type Department Care Team (Late st Contact Info) Description 05/08/2022 MyC Medical Advice [facility] [address] [facility] [address] [place] [phone] Britt Bauer, HARBOUR MASTER Social History Tobacco Use Types Packs/Day Years [...] than three times a week 06/12/2019 Attends Episcopalian Services Never 06/12 Active Member of Clubs [...] points; Administer PHQ-9 if positive 0 05/09/2022 [facility] [place] of Occupat ional Health - Occupational Stress [...] 12/09/2023 10:00 AM CDT Office Visit [facility] [place] [address] [place] [address] Drive [address] [place] [phone] Katelyn Khan APRN WEB DEVELOPER PROGRAMMER [address] [place] [address] [place] [address] documented as of this encounter Visit Diagnoses Not on filedocumented in this encounter Additional Health Concerns Assessment Noted Time PHQ-9 Depression Total Score: 3 05/09/20 22 11:23 AM MEDIA PLANNER / BUYER documented as of this encounter Care Teams Warehouse Delivery Manager Relationship Specialty Start Date End Date Katelyn Khan APRN WEB DEVELOPER PROGRAMMER [address] [place] [address] [place] [address] PCP - General Family Practice 06/12/19 Katelyn Khan, MARS WEB DEVELOPER PROGRAMMER [address] [facility] [place] [address] Assigned PCP 05/21/19 documented as of this encounter
--- OUTSIDE RECORDS SUMMARY | 2023-06-13 08:13 | XMS_ITS | Encounter Summary ---
Author Name Unknown Organization [facility] Address [address] [place] [address]. [place] [address] Care Team Providers Care Plumbing And Heating Contractor Name Role Phone Katelyn Feliciano APRN BALLET SOLOIST Primary Care Pro vider Katelyn Feliciano APRN BALLET SOLOIST Unavailable Reason for Visit * Reason Onset Date Comments Physical Imm/Inj 10/22/2022 COVID-19 VACCINE Encounter Details Date Type Department Care Team (Late st Contact Info) Description 10/22/2022 10:30 AM CDT [facility] [address] [place] [phone] Katelyn Feliciano APRN BALLET SOLOIST [facility] [place] [phone] Routine general medical examination at a health care facility (Primary Dx); Moderate episode of recurrent major depressive disorder (H); Anxiety; Morbid obesity (H); Depression with anxiety; Dysmenorrhea; High priority for 2019-nCoV vaccine Social History Tobacco Use Types Packs/Day Years [...] week 10/22/2022 How often do you attend advent or congregation serv ices? Never 10/22/2022 Do you belong to any clubs o r organizations such as advent groups, unions, fraternal or athletic groups, or [...] Answer Date Recorded PHQ-2 Score 0 10/22/2022 [facility] - Occupational Stress Questionnaire Answer Date Recorded [...] place to sleep or slept in a retirement (including now)? No 10/22/2022 Education Answer Date Recorded What is the [...] suspected to have Coronavirus/COVID-19? No / Unsure 10/22/2022 10:06 AM CDT documented as of this encounter Last Filed Vital Signs Vital Sign Reading [...] Mass Index 40.01 10/22/2022 10:34 AM CDT documented in this encounter Patient Instructions * Patient Instructions* Katelyn Feliciano, MARS BALLET SOLOIST - 10/22/2022 10:30 AM CDT If things are going well in 6 month, request a refill and I can fill it. We may want to update the depression questionaire. If things are not going well, do an e visit with me. Preventive Health Recommendations Female Ages 26 - 39 Yearly exam: See your health care provider every year in order to Review health changes. Discuss preventive care. Review your medicines if you your doctor has prescribed any. Until age 30: Get a Pap test every three years (more often if you have had an abnormal result). After age 30: Talk to your doctor about whether you should have a Pap test every 3 years or have a Pap test with HPV screening every 5 years. You do not need a Pap test if your uterus was removed (hysterectomy) and you have not had cancer. You should be tested each year for STDs (sexually transmitted diseases), if you're at risk. Talk to your provider about how often to have your cholesterol checked. If you are at risk for diabetes, you should have a diabetes test (fasting glucose). Shots: Get a flu shot each year. Get a tetanus shot every 10 years. Nutrition: Eat at least 5 servings of fruits and vegetables each day. Eat whole-grain bread, whole-wheat pasta and brown rice instead of white grains and rice. Get adequate Calcium and Vitamin D. Lifestyle Exercise at least 150 minutes a week (30 minutes a day, 5 days of the week). This will help you control your weight and prevent disease. Limit alcohol to one drink per day. No smoking. Wear sunscreen to prevent skin cancer. See your dentist every six months for an exam and cleaning. documented in this encounter Progress Notes * Katelyn Feliciano APRN CNP - 10/22/2022 10:30 AM CDT Images from the original note were not included. SUBJECTIVE: CC: Elva is an 27 year old who presents for preventive health visit. View : No data to display. Patient has been advised of split billing requirements and indicates understanding: Yes Healthy Habits: Getting at least 3 servings of Calcium per day: Yes Bi-annual eye exam: Yes Dental care twice a year: NO Sleep apnea or symptoms of sleep apnea: Daytime drowsiness Diet: Carbohydrate counting Frequency of exercise: 1 day/week Duration of exercise: 30-45 minutes Taking medications regularly: Yes Medication side effects: None PHQ-2 Total Score: 0 Additional concerns today: Yes History of rabies vaccine after bite at work. Wondering if she needs to get titers. History of depression, was on wellbutrin, had worsening sleep schedule. Stopped last august. [employer] [place] - discount thru work. IVF starting soon. OBGYN- [facility]-signed. PAP done December 2021; patient has them yearly due to famhx of ovarian cancer. Social History Tobacco Use ??? Smoking status: Never ??? Smokeless tobacco: Never Vaping Use ??? Vaping status: Not on file Substance Use Topics ??? Alcohol use: Yes Comment: One drink per week 10/22/2022 10:16 AM Alcohol Use Prescreen: >3 drinks/day or >7 drinks/week? No View : No data to display. Reviewed orders with patient. Reviewed health maintenance and updated orders accordingly - Yes Lab work is in process Breast Cancer Screening: FHS-7: 10/22/2022 10:22 AM Breast CA Risk Assessment (S-7) Did any of your first-degree relatives have breast or ovarian cancer? Yes Did any of your relatives have bilateral breast cancer? Unknown Did any man in your family have breast cancer? No Did any woman in your family have breast and ovarian cancer? No Did any woman in your family have breast cancer before age 50 y? No Do you have 2 or more relatives with breast and/or ovarian cancer? No Do you have 2 or more relatives with breast and/or bowel cancer? No Mom had ovarian ca Mammogram Screening: Recommended annual mammography Pertinent mammograms are reviewed under the imaging tab. History of abnormal Pap smear: NO - age 21-29 PAP every 3 years recommended Reviewed and updated as needed this visit by clinical staff Allergies Meds Reviewed and updated as needed this visit by Provider Meds Review of Systems Constitutional: Negative for chills and fever. HENT: Negative for congestion, ear pain, hearing loss and sore throat. Eyes: Negative for pain and visual disturbance. Respiratory: Negative for cough and shortness of breath. Cardiovascular: Negative for chest pain, palpitations and peripheral edema. Gastrointestinal: Negative for abdominal pain, constipation, diarrhea, heartburn, hematochezia and nausea. Breasts: Negative for tenderness, breast mass and discharge. Genitourinary: Negative for dysuria, frequency, genital sores, hematuria, pelvic pain, urgency, vaginal bleeding and vaginal discharge. Musculoskeletal: Negative for arthralgias, joint swelling and myalgias. Skin: Positive for rash. Neurological: Negative for dizziness, weakness, headaches and paresthesias. Psychiatric/Behavioral: Negative for mood changes. The patient is nervous/anxious. OBJECTIVE: BP 102/74 (BP Location: Right arm, Patient Position: Sitting, Cuff Size: Adult Regular) Pulse 88 Temp 97.4 ??F (36.3 ??C) (Tympanic) Resp 16 Ht 1.73 m (5' 8.11) Wt 119.7 kg (264 lb) LMP 10/16/2022 (Exact Date) SpO2 100% BMI 40.01 kg/m?? Physical Exam GENERAL: healthy, alert and no distress EYES: Eyes grossly normal to inspection, PERRL and conjunctivae and sclerae normal HENT: ear canals and TM's normal, nose and mouth without ulcers or lesions NECK: no adenopathy, no asymmetry, masses, or scars and thyroid normal to palpation RESP: lungs clear to auscultation - no rales, rhonchi or wheezes CV: regular rate and rhythm, normal S1 S2, no S3 or S4, no murmur, click or rub, no peripheral edema and peripheral pulses strong ABDOMEN: soft, nontender, no hepatosplenomegaly, no masses and bowel sounds normal MS: no gross musculoskeletal defects noted, no edema PSYCH: mentation appears normal, affect normal/bright ASSESSMENT/PLAN: (Z00.00) Routine general medical examination at a health care facility (primary encounter diagnosis) Comment: Plan: Rabies Antibody Screen Humans (F33.1) Moderate episode of recurrent major depressive disorder (H) Comment: stable on current regime, likes medications Plan: buPROPion (WELLBUTRIN XL) 150 MG 24 hr tablet (F41.9) Anxiety Comment: stable Plan: buPROPion (WELLBUTRIN XL) 150 MG 24 hr tablet (E66.01) Morbid obesity (H) Comment: diet and exercise reviewed Plan: buPROPion (WELLBUTRIN XL) 150 MG 24 hr tablet (F41.8) Depression with anxiety Comment: stable Plan: (N94.6) Dysmenorrhea Comment: stable Plan: (Z23) High priority for 2019-nCoV vaccine Comment: Plan: COVID-19 BIVALENT 12+ (PFIZER) COUNSELING: Reviewed preventive health counseling, as reflected in patient instructions Special attention given to: Regular exercise Healthy diet/nutrition Family planning Osteoporosis prevention/bone health She reports that she has never smoked. She has never used smokeless tobacco. Katelyn Feliciano APRN CNP [facility] documented in this encounter Plan of Treatment Upcoming Encounters Date Type Department Care Team (Late st Contact Info) Description 12/09/2023 10:00 AM CDT Office Visit [facility] [place] [address] [place] [phone] Katelyn Feliciano APRN BALLET SOLOIST [address] [facility] [place] [address] documented as of this encounter Procedures Procedure Name Priority Date/Time Associated Diagnosis Comments RABIES ANTIBODY SCREEN HUMANS Routine 10/22/2022 11:40 AM CDT Routine general medical examination at a health care facility documented in this encounter Results * Rabies Antibody Screen Humans (10/22/2022 11:40 AM CDT) Rabies Antibody Scrn See Note 11/08/2022 9:04 AM CDT [facility] Comment: TEST ? RESULTS ?UNITS ? EXPECTED ?RANGE Rabies Titer-Response ?>/= 0.5 ?IU/mL ?? LESS THAN 0.1 IU/mL: Below detection limit ?? >/= 0.1 IU/mL: Above detection limit but below 0.5 IU/mL ?? >/= 0.5 IU/mL: Equal to or above 0.5 IU/mL ?? RABIES NEUTRALIZING ANTIBODY TITRATION ?? (RFFIT) RESULT VERIFIED BY: ?? Sahwn Hernandez DO In humans, a result of 0.5 IU/mL or higher is considered an acceptable response to rabies vaccination according to the World Health Organization (WHO) guidelines; see WHO and Advisory Committee on Immunization Practices documents for additional guidance. Also, there is more information at www.vet.ohu.edu/rabies. (Note: the symbol > means greater than and >/= means greater than or equal to). Performed By: [facility] [address] [place] [id number] Blood STRUCTURE OF LEFT UPPER LIMB / Unknown Venipuncture / Unknown 10/22/2022 11:40 AM CDT 10/22/2022 12:06 PM CDT Katelyn Feliciano APRN BALLET SOLOIST LAB - BLO OD ORDERABLES [email or web address] [address] [place] [address], [facility] [phone] documented in this encounter Visit Diagnoses Diagnosis Routine general medical examination at a health care facility- Primary Moderate episode of recurrent major depressive disorder (H) Anxiety Anxiety state, unspecified Morbid obesity (H) Morbid obesity Depression with anxiety Dysthymic disorder Dysmenorrhea High priority for 2019-nCoV vaccine documented in this encounter Additional Health Concerns Assessment Noted Time PHQ-9 Depression Total Score: 7 10/23/19 10:13 AM CDT documented as of this encounter Care Teams Plumbing And Heating Contractor Relationship Specialty Start Date End Date Katelyn Feliciano APRN BALLET SOLOIST [address] [facility] [place] [address] PCP - General Family Practice 06/12/19 Katelyn Feliciano APRN BALLET SOLOIST [address] [facility] [place] [address] Assigned PCP 05/21/19 documented as of this encounter
--- OUTSIDE RECORDS SUMMARY | 2023-06-13 08:13 | XMS_ITS | Encounter Summary ---
Author Name Unknown Organization [facility] Address [address] [place] [address]. [place] [address] Care Team Providers Care River And Harbor Soundings Group Leader Name Role Phone Katelyn Khan APRN FLOOR RENOVATOR Primary Care Pro vider Katelyn Khan APRN FLOOR RENOVATOR Unavailable Reason for Visit * Reason Onset Date Comments MyChart Communication 11/02/2022 Rabies tit er question Encounter Details Date Type Department Care Team (Latest Contact Info) Description 11/02/2022 [place] Medical Advice M [facility] [place] [address] [place] [phone] Katelyn Khan APRN [facility] [address] [facility] [place] [address] MyChart Communication (Rabies titer question) Social History Tobacco Use Types Packs/Day Years [...] week 10/22/2022 How often do you attend buddhism or rastafari serv ices? Never 10/22/2022 Do you belong to any clubs o r organizations such as buddhism groups, unions, fraternal or athletic groups, or [...] Score 0 10/22/2022 [facility] of Occupat ional [facility] - Occupational Stress Questionnaire Answer Date Recorded [...] place to sleep or slept in a chcf (including now)? No 10/22/2022 Education Answer Date [...] AM CDT documented as of this encounter Miscellaneous Notes * Telephone Encounter - Sravanthi Manzano RN - 11/02/2022 3:00 PM CDT Images from the original note were not included. Per lab guide: Rabies Antibody Screen, Humans??[[id number]] Abbrev??Code: ?? RABSCN Epic Code: ?? [id number] Epic Name: ?? Rabies Antibody Screen, Humans Methodology: ?? Rapid fluorescent foci inhibition (RFFIT) Turnaround Time: ?? Specim[facility]; results are reported within 21-31 days. documented in this encounter Plan of Treatment Upcoming Encounters Date Type Department Care Team (Late st Contact Info) Description 12/09/2023 10:00 AM CDT Office Visit [facility] [place] [address] [place] [phone] Katelyn Khan APRN [facility] [address] [place] [address] [place] [phone] documented as of this encounter Visit Diagnoses Not on filedocumented in this encounter Additional Health Concerns Assessment Noted Time PHQ-9 Depression Total Score: 7 10/23/19 23 10:13 AM CDT documented as of this encounter Care Teams [employer] Group Leader Relationship Specialty Start Date End Date Katelyn Khan APRN FLOOR RENOVATOR [facility] [place] [address] PCP - General Family Practice 06/12/19 Katelyn Khan APRN FLOOR RENOVATOR [facility] [place] [address] Assigned PCP 05/21/19 documented as of this encounter
--- OUTSIDE RECORDS SUMMARY | 2023-06-13 08:13 | XMS_ITS | Encounter Summary ---
Author Name Unknown Organization [facility] Address formerly [facility] [place] [address] Care Team Providers Care Poultry Pathologist Name Role Phone Katelyn Khan APRN PROSTHODONTIST Primary Care Pro vider Juan Antonio Arteaga RN Unavailable Unav ailable Katelyn Khan APRN PROSTHODONTIST Unavailable Harish Zavaleta [facility] Unavailable Encounter Details Date Type Department Care Team (Late st Contact Info) Description 09/14/2019 MyC Medical Advice [facility] [place] [address] [facility] [address] [place] [phone] Kim Quintanilla, [...] than three times a week 06/12/2019 Attends Taoism Services Never 06/12 Active Member of Clubs [...] Answer Date Recorded PHQ-2 Score 1 06/12/2019 [facility] of Occupat ional Health - Occupational Stress [...] Description 12/09/2023 10:00 AM CDT Office Visit [facility] [place] [address] [place] [phone] Katelyn Khan APRN [facility] [address] [facility] [place] [address] documented as of this encounter Visit Diagnoses Not on filedocumented in this encounter Additional Health Concerns Infection Onset Date Last Indicated Resolved Time Rule Out COVID-19 01/25/2021 01/25/2021 01/25/2021 5:51 PM CDT Assessment Noted Time PHQ-9 Depression Total Score: 11 020 11:29 AM RESEARCH SUBJECT documented as of this encounter Care Teams Poultry Pathologist Relationship Specialty Start Date End Date Katelyn Khan APRN PROSTHODONTIST [address] [facility] [place] [address] PCP - General Family Practice 06/12/19 Juan Antonio Arteaga, RN Personal Advocate & Liaison (PAL) 06/15/19 11/07/20 Katelyn Khan APRN PROSTHODONTIST [address] [facility] [place] [address] Assigned PCP 05/21/19 Harish Zavaleta LMFT [address] [place] [address] Assigned Behavioral Health Provider 04/23/21 05/06/21 documented as of this encounter
--- OUTSIDE RECORDS SUMMARY | 2023-06-13 08:13 | XMS_ITS | Encounter Summary ---
Author Name Unknown Organization [facility] Address [address] [place] [address]. [place] [address] Care Team Providers Care Financial Rep Name Role Phone Katelyn Khan APRN PAPER MILL SUPERINTENDENT Primary Care Pro vider Juan Antonio Arteaga RN Unavailable Unav ailable Katelyn Khan APRN PAPER MILL SUPERINTENDENT Unavailable Harish Zavaleta [facility] Unavailable Encounter Details Date Type Department Care Team (Late st Contact Info) Description 06/25/2019 MyC Medical Advice M [facility] [place] [address] [place] [phone] Katelyn Khan APRN [facility] [address] [facility] [place] [address] Social History Tobacco Use Types Packs/Day Years [...] than three times a week 06/12/2019 Attends Voodoo Services Never 06/12 Active Member of Clubs [...] Answer Date Recorded PHQ-2 Score 1 06/12/2019 [facility] of Occupat ional Health - Occupational Stress [...] encounter Miscellaneous Notes * Telephone Encounter - Juan Antonio Arteaga RN - 06/26/2019 7:47 AM LAND MANAGEMENT FORESTER Sent pt a [employer] message. - Jose Arteaga RN - Patient Advocate Liason (PAL) [facility] MANAGEMENT FORESTER documented in this encounter Plan of Treatment Upcoming Encounters Date Type Department Care Team (Late st Contact Info) Description 12/09/2023 10:00 AM CDT Office Visit [facility] [address] [place] [phone] Katelyn Khan APRN PAPER MILL SUPERINTENDENT [address] [place] [address] [place] [address] documented as of this encounter Visit Diagnoses Not on filedocumented in this encounter Additional Health Concerns Infection Onset Date Last Indicated Resolved Time Rule Out COVID-19 01/25/2021 01/25/2021 01/25/2021 5:51 PM CDT Assessment Noted Time PHQ-9 Depression Total Score: 11 020 11:29 AM LAND MANAGEMENT FORESTER documented as of this encounter Care Teams Financial Rep Relationship Specialty Start Date End Date Katelyn Khan APRN PAPER MILL SUPERINTENDENT [address] [place] [address] [place] [address] PCP - General Family Practice 06/12/19 Juan Antonio Arteaga, RN Personal Advocate & Liaison (PAL) 06/15/19 11/07/20 Katelyn Khan APRN PAPER MILL SUPERINTENDENT [address] [place] [address] [place] [address] Assigned PCP 05/21/19 Harish Zavaleta LMFT [address] [place] [address] Assigned Behavioral Health Provider 04/23/21 05/06/21 documented as of this encounter
--- OUTSIDE RECORDS SUMMARY | 2023-06-13 08:13 | XMS_ITS | Encounter Summary ---
Author Name Unknown Organization [facility] Address [address] [place] [address]. [place] [address] Care Team Providers Care Internet Site Designer Name Role Phone Katelyn Khan APRN MARINE STEWARD Primary Care Pro vider Katelyn Khan APRN MARINE STEWARD Unavailable Reason for Visit * Reason Comments Medication Refill Encounter Details Date Type Department Care Team (Late st Contact Info) Description 02/05/2022 Refill M [facility] [address] [facility] [place] [phone] Katelyn Khan APRN MARINE STEWARD [address] [facility] [place] [id number] Medication Refill Social History Tobacco Use Types [...] PHQ-2 Answer Date Recorded PHQ-2 Score 1 09/15/2021 [facility] of Occupat ional Health - Occupational Stress [...] encounter Miscellaneous Notes * Telephone Encounter - Britt Bauer CMA - 02/08/2022 9:41 AM CDT Gregor Bauer MA * Telephone Encounter - Billie Lucero RN - 02/08/2022 9:29 AM CDT Medication is being filled for 1 time refill only due to: Patient needs to be seen because due for f/u and PHQ-9. Routing to MA/MAXIM-please help pt schedule follow up and update PHQ-9. Billie West RN, BSN [facility] documented in this encounter Plan of Treatment Upcoming Encounters Date Type Department Care Team (Late st Contact Info) Description 12/09/2023 10:00 AM CDT Office Visit [facility] [place] [address] [place] [address] Drive [address] [place] [phone] Katelyn Khan APRN MARINE STEWARD [address] [place] [address] [place] [address] documented as of this encounter Visit Diagnoses Diagnosis Moderate episode of recurrent major depressive disorder (H) Anxiety Anxiety state, unspecified Morbid obesity (H) Morbid obesity documented in this encounter Additional Health Concerns Assessment Noted Time PHQ-9 Depression Total Score: 3 09/16/19 22 9:16 AM CDT documented as of this encounter Care Teams Internet Site Designer Relationship Specialty Start Date End Date Katelyn Khan APRN MARINE STEWARD [address] [place] [address] [place] [address] PCP - General Family Practice 06/12/19 Katelyn Khan APRN MARINE STEWARD [address] [place] [address] [place] [address] Assigned PCP 05/21/19 documented as of this encounter
--- OUTSIDE RECORDS SUMMARY | 2023-06-13 08:13 | XMS_ITS | Encounter Summary ---
Author Name Unknown Organization [place] Address [address] [place] [address]. [address] Care Team Providers Care Merchandising Internship Name Role Phone Katelyn Khan APRN TECH BRAZER TESTER Primary Care Pro vider Katelyn Khan APRN TECH BRAZER TESTER Unavailable Reason for Visit * Reason Comments Medication Refill Encounter Details Date Type Department Care Team (Late st Contact Info) Description 04/14/2023 Refill [facility] [address] [place] [address] Katelyn Khan APRN TECH BRAZER TESTER [facility] K[place] [id number] Medication Refill Social History Tobacco Use Types [...] week 10/22/2022 How often do you attend religion or jewish serv ices? Never 10/22/2022 Do you belong to any clubs o r organizations such as religion groups, unions, fraternal or athletic groups, or [...] Answer Date Recorded PHQ-2 Score 0 10/22/2022 [facility] of Occupat ional Health - Occupational [...] place to sleep or slept in a longterm (including now)? No 10/22/2022 Adolescent Education Answer [...] encounter Miscellaneous Notes * Telephone Encounter - Ema Guillory - 04/16/2023 11:17 AM CST Patient is scheduled for a Video Visit with PCP for April 30 at 7AM. Please refill. Thank you Kike Alcocer Bus Van Driver K ROLLER * Telephone Encounter - Ema Guillory - 04/16/2023 9:26 AM CST 1st attempt: sent [employer] message to patient. Thank you Kike Alcocer Bus Van Driver K ROLLER * Telephone Encounter - Katelyn Khan APRN CNP - 04/15/2023 10:45 AM CST Overdue for needed care. Please call to schedule. Once appt is scheduled, route back to me. K ROLLER documented in this encounter Plan of Treatment Upcoming Encounters Date Type Department Care Team (Late st Contact Info) Description 12/09/2023 10:00 AM CDT Office Visit [address] [place] [phone] Katelyn Khan APRN TECH BRAZER TESTER [address] [facility] [place] [address] documented as of this encounter Visit Diagnoses Diagnosis Moderate episode of recurrent major depressive disorder (H) Anxiety Anxiety state, unspecified Morbid obesity (H) Morbid obesity documented in this encounter Additional Health Concerns Assessment Noted Time PHQ-9 Depression Total Score: 7 10/23/19 23 10:13 AM CDT documented as of this encounter Care Teams Merchandising Internship Relationship Specialty Start Date End Date Katelyn Khan APRN TECH BRAZER TESTER [address] [facility] [place] [address] PCP - General Family Practice 06/12/19 Katelyn Khan APRN TECH BRAZER TESTER [facility] [place] [address] Assigned PCP 05/21/19 documented as of this encounter
--- OUTSIDE RECORDS SUMMARY | 2023-06-13 08:13 | XMS_ITS | Encounter Summary ---
Author Name Unknown Organization [place] Address [address] [place] [address] Care Team Providers Care Birdcage Assembler Name Role Phone Katelyn Khan APRN DIAMOND SETTER Primary Care Pro vider Katelyn Khan APRN DIAMOND SETTER Unavailable Encounter Details Date Type Department Care Team (Latest Contact Info) Description 09/17/2022 Travel Social History Tobacco Use Types Packs/Day Years [...] than three times a week 06/12/2019 Attends Gnosticist Services Never 06/12 Active Member of Clubs [...] points; Administer PHQ-9 if positive 0 05/09/2022 [facility] of Occupat ional Health - Occupational Stress [...] Description 12/09/2023 10:00 AM CDT Office Visit [facility] [place] [address] [place] [address] Drive [address] [place] [address] Katelyn Khan, SENIOR SALES ENGINEER DIAMOND SETTER [address] [place] [address] [place] [address] documented as of this encounter Visit Diagnoses Not on filedocumented in this encounter Additional Health Concerns Assessment Noted Time PHQ-9 Depression Total Score: 3 05/09/20 22 11:23 AM TILE AND MARBLE SETTER documented as of this encounter Care Teams Birdcage Assembler Relationship Specialty Start Date End Date Katelyn Khan, SENIOR SALES ENGINEER DIAMOND SETTER [address] [place] [address] [place] [address] PCP - General Family Practice 06/12/19 Katelyn Khan APRN DIAMOND SETTER [address] [facility] [place] [address] Assigned PCP 05/21/19 documented as of this encounter
--- OUTSIDE RECORDS SUMMARY | 2023-06-13 08:13 | XMS_ITS | Encounter Summary ---
Author Name Unknown Organization [facility] Address [facility] access hospital0 [facility] [place] [address] Care Team Providers Care Grocery Clerk Checking Name Role Phone Katelyn Khan APRN ADMINISTRATIVE SERVICES OFFICER Primary Care Pro vider Katelyn Khan APRN ADMINISTRATIVE SERVICES OFFICER Unavailable Encounter Details Date Type Department Care Team (Late st Contact Info) Description 02/08/2022 [facility] Medical Advice [facility] [address] [facility] [address] [place] [address] Britt Bauer, CHAIR CAR DRIVER Social History Tobacco Use Types Packs/Day Years [...] than three times a week 06/12/2019 Attends [employer] Never 06/12 Active Member of Clubs [...] Answer Date Recorded PHQ-2 Score 1 09/15/2021 [facility] of Occupat ional Health - Occupational Stress [...] Description 12/09/2023 10:00 AM CDT Office Visit [facility] [place] [address] [place] [address] Drive [address] [place] [phone] Katelyn Khan APRN ADMINISTRATIVE SERVICES OFFICER [address] [place] [address] [place] [address] documented as of this encounter Visit Diagnoses Not on filedocumented in this encounter Additional Health Concerns Assessment Noted Time PHQ-9 Depression Total Score: 3 09/16/19 22 9:16 AM CDT documented as of this encounter Care Teams Grocery Clerk Checking Relationship Specialty Start Date End Date Katelyn Khan APRN CNP [address] [place] [address] [place] [address] PCP - General Family Practice 06/12/19 Katelyn Khan, COUNTY NURSE ADMINISTRATIVE SERVICES OFFICER [address] [facility] [place] [address] Assigned PCP 05/21/19 documented as of this encounter
--- OUTSIDE RECORDS SUMMARY | 2023-06-13 08:13 | XMS_ITS | Encounter Summary ---
Author Name Unknown Organization [facility] Address [address] [place] [address] Care Team Providers Care Solar Photovoltaic Systems Engineer Name Role Phone Katelyn Khan APRN EPIC AMBULATORY ANALYST Primary Care Pro vider Katelyn Khan APRN EPIC AMBULATORY ANALYST Unavailable Encounter Details Date Type Department Care Team (Latest Contact Info) Description 10/22/2022 Travel Social History Tobacco Use Types Packs/Day [...] week 10/22/2022 How often do you attend latter day or synagogue serv ices? Never 10/22/2022 Do you belong to any clubs o r organizations such as latter day groups, unions, fraternal or athletic groups, or [...] Score 0 10/22/2022 [facility] of Occupat ional [facility] - Occupational Stress Questionnaire Answer [...] place to sleep or slept in a fdc (including now)? No 10/22/2022 Education Answer Date [...] Visit [facility] [place] [address] [place] [address] Drive [address] [place] [phone] Katelyn Khan APRN EPIC AMBULATORY ANALYST [address] [place] [address] [place] [address] documented as of this encounter Visit Diagnoses Not on filedocumented in this encounter Additional Health Concerns Assessment Noted Time PHQ-9 Depression Total Score: 7 10/23/19 23 10:13 AM CDT documented as of this encounter Care Teams Solar Photovoltaic Systems Engineer Relationship Specialty Start Date End Date Katelyn Khan APRN EPIC AMBULATORY ANALYST [address] [place] [address] [place] [address] PCP - General Family Practice 06/12/19 Katelyn Khan APRN EPIC AMBULATORY ANALYST [address] [place] [address] [place] [address] Assigned PCP 05/21/19 documented as of this encounter
--- NOTE | 2023-06-13 08:15 | CRLHL7_ITS ---
For Patients: As a result of the Century Cures Act, medical imaging exams and procedure reports are released immediately into your electronic medical record. You may view this report before your referring provider. If you have questions, please contact your health care provider. INDICATION: survey. TECHNIQUE: Conventional transabdominal two-dimensional grayscale ultrasound examination. COMPARISON: None. FINDINGS: There is a living fetus with gestational age of 20 weeks 2 days by LMP and 21 weeks 3 days by today`s measurements. EDC based on LMP is 10/29/2023 BPD: 5.0 cm, 21 weeks 1 day Head circumference: 19.1 cm, 21 weeks 2 days Abdominal circumference: 17.3 cm, 22 weeks 1 day Femur length: 3.5 cm, 21 weeks 1 day The weight is estimated at 443 grams, greater than the 97th percentile. The heart rate is measured at 150 beats per minute and the rhythm appears regular. The head and spine are grossly intact. The facial profile could not be visualized. The upper lip is intact. Four cardiac chambers are demonstrated. The heart and stomach appear to be on the same side. The diaphragm is intact. Two kidneys and a bladder are demonstrated. Three core vessels are noted as well as the normal cord insertion. However, the placental cord insertion could not be visualized. Four extremities are demonstrated. The amniotic fluid volume is within normal limits. The placenta is posterior with no evidence of previa. The cervical length is normal at 4.7 cm. IMPRESSION: 1. Living fetus with gestational age of 20 weeks 2 days by LMP and 21 weeks 3 days by today`s measurements. EDC based on LMP is 10/29/2023. 2. facial profile and placental cord insertion not visualized due to position. Otherwise negative survey. Dictated by Arron Souza MD @ 06/14/2023 7:45:06 AM (Electronically Signed)
== END 2023-06-13 08:10 | disposition home or self-care (01) ==
LOC: US 08:10
PROVIDERS: Visit Provider Obstetrics & Gynecology
DX: Z34.92 Encounter for supervision of normal pregnancy, unspecified, second trimester (principal); Z3A.20 20 weeks gestation of pregnancy
CPT/HCPCS: 76805

== ENCOUNTER 2023-08-06 10:01 | Outpatient (CLI) | payer BC, SELFPAY | END 2023-08-06 10:02 | disposition home or self-care (01) | LOC: NFLDREF 08-20 11:30 | PROVIDERS: Visit Provider Advanced Practice Midwife | DX: Z34.93 Encounter for supervision of normal pregnancy, unspecified, third trimester (principal) | CPT/HCPCS: 86592 ==

== ENCOUNTER 2023-09-03 08:28 | Outpatient (CLI) | payer BC, SELFPAY ==
--- NOTE | 2023-09-03 08:45 | US_ITS ---
Patient: SABA STEWARD Facility:?[facility] Patient ID:?[id number] Site Patient ID:?[id number]. Site :?1995 Study:?US-OB Pelvis OB F/U-09/03/2023 9:36:26 AM Ordering Physician:Julia Alejandro Final Report: OB ULTRASOUND LUIS ALBERTO by IVF: 10/24/2023. GA: 1 w. Single. INDICATION: Growth, supervision of high-risk . COMPARISON: 06/27/2023. CERVIX: Not visualized. POSITIONING: Vertex. AMNIOTIC FLUID: 6.92 cm. PLACENTA: Technique: Transabdominal. PLACENTA POSITION: Posterior. DOPPLER: heart rate: 154 bpm. Biometry: BPD: 8.90 cm. 36 w, 0 d, >97%. HC: 33.2 cm. 37 w, 6 d, >97%. AC: 32.0 cm. 36 w, 0 d, >97%. FL: 6.92 cm. 35 w, 1 d, 92.4%. FL/AC ratio: 21.40%. HC/AC ratio: 1.04. EFW: 2811 g. Weight: 6 lbs, 3 oz. age by this US: 36 w, 2 d. LUIS ALBERTO by this US: 09/29/2023. Percentile by LUIS ALBERTO: >97%. IMPRESSION: Estimated weight is at greater than 97th percentile. Gucci Ricketts M.D. Body/Diagnostic Radiologist [email or web address] CECILY/jaden D& Transcribed: 2:31 p.mJorge stanley/Dictated by: Gucci Ricketts MD @ 09/03/2023 2:09:00 PM Signed by:?Gucci Ricketts MD @09/03/2023 2:36:27 PM (Electronic Signature)
== END 2023-09-03 08:29 | disposition home or self-care (01) ==
LOC: US 08:28
PROVIDERS: Visit Provider Advanced Practice Midwife
DX: O09.813 Supervision of pregnancy resulting from assisted reproductive technology, third trimester (principal); Z3A.36 36 weeks gestation of pregnancy
CPT/HCPCS: 76816

== ENCOUNTER 2023-09-30 08:58 | Outpatient (CLI) | payer BC, SELFPAY ==
--- OUTSIDE RECORDS SUMMARY | 2023-09-30 09:01 | XMS_ITS | Encounter Summary ---
Author Name Unknown Organization [place] Address [address] [place] [address] Care Team Providers Care Quality Control Expert Name Role Phone Katelyn Khan APRN CAR STARTER Primary Care Pro vider Katelyn Khan APRN CAR STARTER Unavailable Encounter Details Date Type Department Care Team (Latest Contact Info) Description 06/27/2023 Travel Social History Tobacco Use Types Packs/Day [...] week 10/22/2022 How often do you attend baptism or adventist serv ices? Never 10/22/2022 Do you belong to any clubs o r organizations such as baptism groups, unions, fraternal or athletic groups, or [...] Answer Date Recorded PHQ-2 Score 0 10/22/2022 [facility]ational Stress Questionnaire Answer Date [...] have received? Associate degree: academic program 06/12/2019 Estimated Date of Delivery Comme nts Yes 10/24/2023 Based on Other B asis, IVF. Transfer date 02/05/23 Sex and Gender Information Value Date Recorded Sex Assigned at Female 04/04/2019 1:33 AM CDT Gender Identity Female 04/04/2019 1:33 AM CDT Sexual Orientation Bisexual 04/04/2019 1: 33 AM CDT documented as of this encounter Plan of Treatment Upcoming Encounters Date Type Department Care Team (Late st Contact Info) Description 12/09/2023 10:00 AM CDT Office Visit [facility] [place] [address] [place] [phone] Katelyn Khan APRN CAR STARTER [address] [facility] [place] [address] documented as of this encounter Visit Diagnoses Not on filedocumented in this encounter Additional Health Concerns Assessment Noted Time PHQ-9 Depression Total Score: 7 10/23/19 23 10:13 AM CDT documented as of this encounter Care Teams Quality Control Expert Relationship Specialty Start Date End Date Katelyn Khan APRN CAR STARTER [address] [place] [address] [place] [address] PCP - General Family Practice 06/12/19 Katelyn Khan APRN CAR STARTER [address] [place] [address] [place] [address] Assigned PCP 05/21/19 documented as of this encounter
--- OUTSIDE RECORDS SUMMARY | 2023-09-30 09:01 | XMS_ITS | Clinical Summary ---
Author Name Unknown Organization [employer] [facility] Address [address] [place] [address] Care Team Providers Care Geospatial Technologist Name Role Phone Provider, No Primary Primary [...] Comments Blood Pressure 143/92 07/04/2018 12:35 PM QUALITY SYSTEMS SPECIALIST Pulse 85 07/04/2018 12:35 PM QUALITY SYSTEMS SPECIALIST Temperature 36.7 ??C (98 ??F) 07/04/2018 12:35 PM QUALITY SYSTEMS SPECIALIST Respiratory Rate 16 07/04/2018 12:35 PM QUALITY SYSTEMS SPECIALIST Oxygen Saturation 99% 07/04/2018 12:35 PM QUALITY SYSTEMS SPECIALIST Inhaled Oxygen Concentration - - Weight 111.6 kg (246 lb) 07/04/2018 12:35 PM QUALITY SYSTEMS SPECIALIST Height - - Body Mass Index - - Plan of Treatment Not on file Care Teams Geospatial Technologist Relationship Specialty Start Date End Date Provider, [place] [address] PCP - General 06/13/18 Additional Source Comments PLEASE NOTE: Replies to this message will not be received.[facility]
--- OUTSIDE RECORDS SUMMARY | 2023-09-30 09:01 | XMS_ITS | Encounter Summary ---
Author Name Unknown Organization [place] Address [address] [place] [address]. [place] [address] Care Team Providers Care Clinical Dental Technician Name Role Phone Katelyn Khan APRN ADVERTISING SALES ASSOCIATE Primary Care Pro vider Katelyn Khan APRN ADVERTISING SALES ASSOCIATE Unavailable Encounter Details Date Type Department Care Team (Late st Contact Info) Description 07/02/2023 Office Visit [facility] Services - Heart & Vascular Service Line [address] [place] [phone] Herbert Espinal MD [facility] [address] [address] related condition, antepartum (Primary Dx) Social History Tobacco Use Types Packs/Day Years [...] week 10/22/2022 How often do you attend sikh or rastafarian serv ices? Never 10/22/2022 Do you belong to any clubs o r organizations such as sikh groups, unions, fraternal or athletic groups, or [...] Answer Date Recorded PHQ-2 Score 0 10/22/2022 [facility] - Occupational Stress Questionnaire Answer [...] as of this encounter Progress Notes * Herbert Espinal MD - 07/02/2023 3:10 PM CST Cardiology Consultation Patient: Elva Cruz Date of : 1995 Age: [age] year old Date of Visit: 07/02/2023 PCP: Katelyn Khan APRN ADVERTISING SALES ASSOCIATE LUIS ALBERTO: 10/24/2023, by Other Basis EGA: 23w5d weeks Dear Doctor: I had the pleasure of seeing Elva Cruz at the [facility] in [place] on 07/02/2023 in consultation for echocardiography results. She presented today by herself. As you know, she is a 27 year old female with current pr egnancy achieved through IVF. The echocardiogram was normal. Normal cardiac anatomy. Normal right and left ventricular size and function without hypertrophy. No evidence of diastolic dysfunction. No pericardial effusion. No arrhythmia. I reviewed and interpreted the echocardiogram today. I discussed the normal results with Ms. Cruz. While these results are normal, it is important to note that echocardiography cannot exclude small atrial or ventricular septal defects, persistent ductus arteriosus, mild coarctation of the aorta, partial anomalous pulmonary venous return, minor anatomic valve anomalies, or coronary artery anomalies. Thank you for allowing me to participate in Ms. Cruz's care. Please don't hesitate to contact meor the Cardiology team at [facility] with any questions or concerns. I spent a total of 40 minutes on the date of the encounter doing chart review, patient history, documentation, counseling, and coordinating care. Herbert Espinal MD Pediatric Cardiology [facility] Review of the result(s) of each unique test - echocardiogram E ADJUSTER documented in this encounter Plan of Treatment Upcoming Encounters Date Type Department Care Team (Late st Contact Info) Description 12/09/2023 10:00 AM CDT Office Visit [facility] [place] [address] [place] [address] Drive [address] [place] [phone] Katelyn Khan APRN CNP [address] [place] [address] [place] [address] documented as of this encounter Visit Diagnoses Diagnosis related condition, antepartum- Primary documented in this encounter Additional Health Concerns Assessment Noted Time PHQ-9 Depression Total Score: 7 10/23/19 23 10:13 AM CDT documented as of this encounter Care Teams Clinical Dental Technician Relationship Specialty Start Date End Date Katelyn Khan APRN CNP [address] [place] [address] [place] [address] PCP - General Family Practice 06/12/19 Katelyn Khan APRN CNP [address] [place] [address] [place] [address] Assigned PCP 05/21/19 documented as of this encounter
--- OUTSIDE RECORDS SUMMARY | 2023-09-30 09:01 | XMS_ITS | Clinical Summary ---
Author Name Unknown Organization [facility] Address [address] [place] [address] Care Team Providers Care Organic Section Technical Lead Name Role Phone Katelyn Khan APRN INTER COM SERVICER Primary Care Pro vider Katelyn Khan APRN INTER COM SERVICER Unavailable Allergies Active Allergy Reactions Criticality Noted Date Comments Seasonal Allergies 01/25/2021 Medications Medication Sig Dispensed Refills Start Date End Date Status fluticasone (VERAMYST) 27.5 MCG/SPRAY spray [place] 2 sprays into both nostrils daily Active cetirizine (ZYRTEC) 10 MG tablet Take 10 mg by mouth daily Active Vit-Fe Fumarate-FA ( MULTIVITAMIN PLUS IRON) 27-1 MG TABS Active pyridOXINE (VITAMIN B-6) 25 MG tablet 03/02/2023 Active famotidine (PEPCID) 20 MG tablet 05/28/2023 Active aspirin 81 MG EC tablet 04/08/2023 Active doxylamine (UNISOM) 25 MG TABS tablet 03/02/2023 Active buPROPion (WELLBUTRIN XL) 150 MG 24 hr tabletIndications:Mod erate episode of recurrent major depressive disorder (H),Anxiety Take 1 tablet (150 mg) by mouth every morning 90 tablet 1 06/04/2023 Active Active Problems Problem Noted Date Diagnosed Date Morbid obesity 09/29/2020 Moderate episode of recurrent major depressive d isorder 06/12/2019 Anxiety 06/12/2019 Depression with anxiety 06/20/2016 Acne 06/15/2014 Allergic rhinitis 06/15/2014 Dysmenorrhea 05/25/2014 Estimated Date of Delivery Comme nts Yes 10/24/2023 Based on Other B asis, IVF. Transfer date 02/05/23 Resolved Problems Problem Noted Date Diagnosed Date Resolved Date Pain in joint involving ankle and foot 08/24/2013 09/29/2020 Edema 08/24/2013 09/29/2020 Ankle sprain 08/24/2013 09/29/2020 Encounters Date Type Department Care Team Description 07/02/2023 12:42 PM STATION USHER - 07/02/2023 11:59 PM STATION USHER Hospital Encounter [facility] [address] [place] [phone] Maxine Martino CNM related condition, antepartum Discharge Disposition: Home or Self Care 07/02/2023 Office Visit [facility] Services - Heart & Vascular Service Line [address] [place] [phone] Herbert Espinal MD related condition, antepartum (Primary Dx) 07/02/2023 Travel from Last 3 Months Immunizations Name Administration Dates Next Due COVID-19 Bivalent 12+ (Pfizer) 10/22/2022 COVID-19 MONOVALENT 12+ (Pfizer) 06/21/2021,09/02,09/06/2020 DTAP (<7y) 10/18/2000, 7,04/20/1996,02/16,1995 Flu, Unspecified 05/03/1998,03/19/1998 HEPATITIS A (PEDS 12M-18Y) 01/13/2007 HIB, Unspecified 04/19/1997, 6,02/17/1996,12/15 HPV Quadrivalent 04/17/2011,03/11/2009, 8 HepA, Unspecified 01/14/2006 HepA-Peds, Unspecified 01/14/2006 HepB, Unspecified 04/20/1996,1995,10/31/18 96 Influenza (H1N1) 05/05/2009 Influenza Vaccine >6 months,quad, [...] week 10/22/2022 How often do you attend faith or advent serv ices? Never 10/22/2022 Do you belong to any clubs o r organizations such as faith groups, unions, fraternal or athletic groups, or [...] 10/22/2022 [facility] of Occupat ional [facility] - Occupational Stress Questionnaire Answer [...] 12/09/2023 10:00 AM CDT Office Visit [facility] [place] [address] [place] [phone] Katelyn Khan, TEST FIXTURE DESIGNER INTER COM SERVICER [address] [facility] [place] [address] Health Maintenance Due Date Last Done Comments PAP 04/03/2022 04/03/2019, 02/2018, 06/11/2017 COVID-19 Vaccine ( season) 2023 10/22/2022, 06/21/2021, 09/27/2020, Additional history exists MATERNAL SCREENING DISCUSSION 03/28/2023 PHQ-9 04/24/2023 10/22/2022, 1211/2021, 09/15/2021, Additional history exists OBGCT (OB) 07/04/2023 GROUP B STREP SCREENING 09/26/2023 ANNUAL REVIEW OF HM ORDERS 10/23/202310/22, 09/15/2021, [...] patient's age to complete this topic RSV VACCINE ( & 60+) (No Doses Required) Completed Procedures Procedure Name Priority Date/Time Associated Diagnosis Comments ECHO COMPLETE Routine 07/02/2023 1 :22 PM STATION USHER related condition, antepartum HEPATITIS C SCREEN REFLEX TO HCV RNA QUANT AND GENOTYPE Routine 08/11/2021 8:41 AM STATION USHER Need for hepatitis C screening test PAP SMEAR - HIM PATIENT REPORTED Routine 04/03/2019 CL AFF RPR W/REFLEX TITER & CONFIRM Routine 10/02/2000 1:55 AM CDT Skin Sensation Disturb Abnormality Of Gait Idio Periph Neurpthy Nos REMOVE IMPACTED EAR WAX Routine 08/14/2000 1:35 PM STATION USHER Impacted Cerumen from Last 3 Months or Most Recently Relevant to Health Maintenance Results * ECHO COMPLETE (07/02/2023 1:22 PM STATION USHER) Anatomical Region Laterality Modality Echocardiography 07/02/2023 12:5 4 PM STATION USHER Narrative 07/02/2023 3:11 PM STATION USHER [id number] [facility] [id number]^JANICE ? Study ID: [id number] ?[facility] ?[facility] ?[address] ?[place] [address] ? Echocardiogram Name: SABA STEWARD Study Date: 07/02/2023 12:54 PM ?Patient Location: [facility] Gender: Female ? Patient Class: Outpatient : 1995 ?Age: 27 yrs Ordering Provider: MAXINE MARTINO Referring Provider: MAXINE MARTINO Performed By: Tono Brower RCCS Reading Physician: Herbert Espinal MD Reason For Study: related condition, antepartum Data: Number of fetuses: This is a aguilar gestation. Due date: 10/24/23. Gestational age: 23w5d. Delivery at: [place]. Specific Indication: In Vitro Fertilization. CONCLUSIONS Normal cardiac anatomy. Normal right and left ventricular size and function. No effusion. The results of the echocardiogram were explained. Although this was a technically difficult study, the patient is aware that no obvious cardiac abnormalities were identified. She is aware of the general limitations of echocardiography. Technical Information: A complete two dimensional, MMODE, spectral and color Doppler echocardiogram is performed. The study quality is good. position and segmental anatomy: The fetus in vertex position. The heart is in left chest. The cardiac apex points towards the left. There is normal atrial arrangement, with concordant atrioventricular and ventriculoarterial connections. The abdominal aorta is to the left of the spine. There is a left sided stomach. Systemic and pulmonary veins: The systemic venous return is normal. At least one right and one left pulmonary veins are seen returning to the left atrium. Atria and atrial septum: Normal right atrial size. The left atrium is normal in size. The flap of the foramen ovale opens in to the left atrium. There is laminar xdfsz-oy-bdnl shunting across the foramen ovale. Atrioventricular valves: The tricuspid valve is normal in appearance and motion. There is no tricuspid insufficiency. The mitral valve is normal in appearance and motion. There is no mitral valve insufficiency. Ventricles and ventricular septum: Normal right ventricular size. Normal right ventricular systolic function. Normal left ventricular size. Normal left ventricular systolic function. No obvious ventricular level shunting. Outflows tracts: Normal great artery relationship. The right ventricular outflow tract is normal in caliber. The pulmonary valve has normal appearance and motion. There is normal flow across the pulmonary valve. There is unobstructed flow through the left ventricular outflow tract. The aortic valve has normal appearance and motion. There is normal flow across the aortic valve. Great arteries: The main pulmonary artery has normal appearance. There is unobstructed flow in the main pulmonary artery. The pulmonary artery bifurcation is normal. There is unobstructed flow in both branch pulmonary arteries. The ductus arteriosus has normal appearance with normal antegrade flow. There is unobstructed antegrade flow in the ascending aorta. The aortic arch appears normal. There is unobstructed antegrade flow in the aortic arch. Effusions and extracardiac findings: No pericardial effusion. No hydrops. cardiac rhythm: heart rate is regular at 158 bpm. Doppler: There is normal flow in the ductus venosus, umbilical artery and umbilical vein. echocardiography cannot rule out small atrial or ventricular septal defects, persistent ductus arteriosus, mild coarctation of the aorta, partial anomalous pulmonary venous return, minor anatomic valve anomalies or coronary artery anomalies. Reading Physician: ?Herbert Espinal MD 07/02/2023 03:11 PM Procedure Note Herbert Espinal MD - 07/02/2023 [id number]^CORY^MAXINE Study ID:[id number] [facility] [address] [address] Echocardiogram Name: DANTE STEWARDN Nora Study Date: 07/02/2023 12:54 PM Patient Location:[facility] Gender: Female Patient Class:Outpatient : 1995 Age: 27 yrs Ordering Provider: MAXINE MARTINO Referring Provider: MAXINE MARTINO Performed By: Tono Brower RCCS Reading Physician: Herbert Espinal MD Reason For Study: related condition, antepartum Data: Number of fetuses: This is a aguilar gestation. [place]ued[place]: 10/24/23. Gestational age: 23w5d. Delivery at: [place]. Specific Indication: In Vitro Fertilization. CONCLUSIONS Normal cardiac anatomy. Normal right and left ventricular size and function. No effusion. The results of the echocardiogram were explained. Although this wasa technically difficult study, the patient is aware that no obviouscardiac abnormalities were identified. She is aware of the general limitationsof echocardiography. Technical Information: A complete two dimensional, MMODE, spectral and color Doppler echocardiogram is performed. The study quality is good. position and segmental anatomy: The fetus in vertex position. The heart is in left chest. The cardiacapex points towards the left. There is normal atrial arrangement, withconcordant atrioventricular and ventriculoarterial connections. The abdominal aortais to the left of the spine. There is a left sided stomach. Systemic and pulmonary veins: The systemic venous return is normal. At least one right and one left pulmonary veins are seen returning to the left atrium. Atria and atrial septum: Normal right atrial size. The left atrium is normal in size. The flap ofthe foramen ovale opens in to the left atrium. There is tkjngfdtypgi-cx-shek shunting across the foramen ovale. Atrioventricular valves: The tricuspid valve is normal in appearance and motion. There is notricuspid insufficiency. The mitral valve is normal in appearance and motion. Thereis no mitral valve insufficiency. Ventricles and ventricular septum: Normal right ventricular size. Normal right ventricular systolicfunction. Normal left ventricular size. Normal left ventricular systolic function.No obvious ventricular level shunting. Outflows tracts: Normal great artery relationship. The right ventricular outflow tract is normal in caliber. The pulmonary valve has normal appearance and motion.There is normal flow across the pulmonary valve. There is unobstructed flowthrough the left ventricular outflow tract. The aortic valve has normal appearanceand motion. There is normal flow across the aortic valve. Great arteries: The main pulmonary artery has normal appearance. There is unobstructedflow in the main pulmonary artery. The pulmonary artery bifurcation is normal.There is unobstructed flow in both branch pulmonary arteries. The ductusarteriosus has normal appearance with normal antegrade flow. There is unobstructed antegrade flow in the ascending aorta. The aortic arch appears normal.There is unobstructed antegrade flow in the aortic arch. Effusions and extracardiac findings: No pericardial effusion. No hydrops. cardiac rhythm: heart rate is regular at 158 bpm. Doppler: There is normal flow in the ductus venosus, umbilical artery andumbilical vein. echocardiography cannot rule out small atrial or ventricularseptal defects, persistent ductus arteriosus, mild coarctation of the aorta,partial anomalous pulmonary venous return, minor anatomic valve anomalies orcoronary artery anomalies. Reading Physician: Herbert Espinal MD 07/02/2023 03:11 PM Maxine Martino CNM CV PEDS ECHO ORDERAB LES * Hepatitis C Screen Reflex to HCV RNA Quant and Genotype (08/11/2021 8:41 AM STATION USHER) Pathologist [facility] Hepatitis C Antibody Nonreactive Nonreactive 08/11/2021 4:34 PM STATION USHER SPECIALTY CORE/PROT/EN DO Blood BLOOD SPECIMEN / Unknown Venipuncture / Unknown 08/11/2021 8:41 AM STATION USHER 08/11/2021 8:41 AM STATION USHER Narrative SPECIALTY CORE/PROT/ENDO - 08/11/2021 4:34 PM STATION USHER Assay performance characteristics have not been established for newborns, infants, and children. Katelyn Khan APRN INTER COM SERVICER LAB - BLO OD ORDERABLES [facility] SPECIALTY CORE/PROT/ENDO Specialty Core/Prot/Endo [address] [facility] [address], [address] [place] [address], [facility] [phone] * PAP Smear - HIM Patient Reported (04/03/2019) PAP Smear - HIM Patient Reported Unknown EXTERNAL LAB 04/03/2019 Narrative EXTERNAL LAB - 04/03/2019 Daria Guevara CMA ??P Abstract Quality Initiatives ?? Pap smear done with MACHINE SCALLOP CUTTER at [facility] MACHINE OPERATOR 04-03-19 Patient Reported LABORATORY EXTERNAL LAB External Lab * RPR W/REFLEX TITER & CONFIRM (10/02/2000 1:55 AM CDT) RPR Screen NON-REACTI VE NON - REACTIVE [facility] 10/01/2000 Clifford Lockett MD LABORATORY [facility] from Last 3 Months or Most Recently Relevant to Health Maintenance Care Teams Organic Section Technical Lead Relationship Specialty Start Date End Date Katelyn Khan APRN INTER COM SERVICER [address] [facility] [place] [address] PCP - General Family Practice 06/12/19 Katelyn Khan APRN INTER COM SERVICER [address] [facility] [place] [address] Assigned PCP 05/21/19
--- OUTSIDE RECORDS SUMMARY | 2023-09-30 09:01 | XMS_ITS | Encounter Summary ---
Author Name Unknown Organization [facility] Address [address] [place] [address] Care Team Providers Care Guide Setter Name Role Phone Katelyn Khan APRN POULTRY FARM SUPERVISOR Primary Care Pro vider Katelyn Khan APRN POULTRY FARM SUPERVISOR Unavailable Reason for Referral * (Routine) - Closed Specialty Diagnoses / Procedures Referred By Contac t Referred To Contact Cardiology Diagnoses related condition, antepartum Procedures Echo (TTE) Maxine Kuo CNM [facility] [address] [place] [address] [facility] [address] [place] [phone] Referral ID Status Reason Start Date Expiration Date Visits Re quested Visits Authorized [id number] Closed 06/17/2023 06/16/2024 1 1 ETARIAL STENOGRAPHER Reason for Visit * (Routine) - Closed Specialty Diagnoses / Procedures Referred By Contac t Referred To Contact Cardiology Diagnoses related condition, antepartum Procedures Echo (TTE) Maxine Kuo CNM [facility] [address] [place] [address] [facility] [address] [place] [phone] Referral ID Status Reason Start Date Expiration Date Visits Re quested Visits Authorized [id number] Closed 06/17/2023 06/16/2024 1 1 Encounter Details Date Type Department Care Team (Latest Contact Info) Description 07/02/2023 12:42 PM SECRETARIAL STENOGRAPHER - 07/02/2023 11:59 PM SECRETARIAL STENOGRAPHER Hospital Encounter [facility] Care [address] [place] [phone] Maxine Martino CNM [facility] [address] [place] [address] related condition, antepartum Discharge Disposition: Home or Self Care Social History Tobacco Use Types Packs/Day Years [...] week 10/22/2022 How often do you attend samaritan or yarsani serv ices? Never 10/22/2022 Do you belong to any clubs o r organizations such as samaritan groups, unions, fraternal or athletic groups, or [...] Answer Date Recorded PHQ-2 Score 0 10/22/2022 [facility] [place] of Occupat ional Health - Occupational Stress [...] AM CDT documented as of this encounter Medications at Time of Discharge Medication Sig Dispensed Refills Start Date End Date aspirin 81 MG EC tablet 04/08/2023 buPROPion (WELLBUTRIN XL) 150 MG 24 hr tabletIndications:Moderat e episode of recurrent major depressive disorder (H),Anxiety Take 1 tablet (150 mg) by mouth every morning 90 tablet 1 06/04/2023 cetirizine (ZYRTEC) 10 MG tablet Take 10 mg by mouth daily doxylamine (UNISOM) 25 MG TABS tablet 03/02/2023 famotidine (PEPCID) 20 MG tablet 05/28/2023 fluticasone (VERAMYST) 27.5 MCG/SPRAY spray [place] 2 sprays into both nostrils daily Vit-Fe Fumarate-FA ( MULTIVITAMIN PLUS IRON) 27-1 MG TABS pyridOXINE (VITAMIN B-6) 25 MG tablet 03/02/2023 documented as of this encounter Plan of Treatment Upcoming Encounters Date Type Department Care Team (Late st Contact Info) Description 12/09/2023 10:00 AM CDT Office Visit [facility] [place] [address] [place] [phone] Katelyn Khan, QUARRYING MANAGER [address] [place] [address] documented as of this encounter Procedures Procedure Name Priority Date/Time Associated Diagnosis Comments ECHO COMPLETE Routine 07/02/2023 1 :22 PM SECRETARIAL STENOGRAPHER related condition, antepartum documented in this encounter Results * ECHO COMPLETE (07/02/2023 1:22 PM SECRETARIAL STENOGRAPHER) Anatomical Region Laterality Modality Echocardiography 07/02/2023 12:5 4 PM SECRETARIAL STENOGRAPHER Narrative 07/02/2023 3:11 PM SECRETARIAL STENOGRAPHER [id number] [facility] [id number]^CORY^MAXINE ? Study ID: [id number] ?[facility] ?[facility] ?[address] ?[place] [address] ? Echocardiogram Name: SABA STEWARD Study Date: 07/02/2023 12:54 PM ?Patient Location: [facility] Gender: Female ? Patient Class: Outpatient : 1995 ?Age: 27 yrs Ordering Provider: MAXINE MARTINO Referring Provider: MAXINE MARTINO Performed By: Tono Brower RCCS Reading Physician: Herbert Espinal MD Reason For Study: related condition, antepartum Data: Number of fetuses: This is a aguilar gestation. Due date: 10/24/23. Gestational age: 23w5d. Delivery at: [place]. Specific Indication: In Vitro Fertilization. CONCLUSIONS Normal [...] to the left atrium. There is laminar npmeu-pq-jgog shunting across the foramen ovale. Atrioventricular valves: [...] Procedure Note Herbert Espinal MD - 07/02/2023 [id number]^CORY^MAXINE Study ID:[id number] [facility] [address] [address] Echocardiogram Name: SABA STEWARD Study Date: 07/02/2023 12:54 PM Patient Location:[facility] Gender: Female Patient Class:Outpatient : 1995 Age: 27 yrs Ordering Provider: MAXINE MARTINO Referring Provider: MAXINE MARTINO Performed By: Tono Brower RCCS Reading Physician: Herbert Espinal MD Reason For Study: related condition, antepartum Data: Number of fetuses: This is a aguilar gestation. [place]: 10/24/23. Gestational age: 23w5d. Delivery at: [place]. Specific Indication: In Vitro Fertilization. CONCLUSIONS Normal [...] in to the left atrium. There is yxxhdhaghkrb-qs-gsqq shunting across the foramen ovale. Atrioventricular valves: [...] Martino CNM CV PEDS ECHO ORDERAB LES documented in this encounter Visit Diagnoses Diagnosis related condition, antepartum documented in this encounter Additional Health Concerns Assessment Noted Time PHQ-9 Depression Total Score: 7 10/23/19 23 10:13 AM CDT documented as of this encounter Care Teams Guide Setter Relationship Specialty Start Date End Date Katelyn Khan APRN POULTRY FARM SUPERVISOR [address] [facility] [place] [address] PCP - General Family Practice 06/12/19 Katelyn Khan APRN POULTRY FARM SUPERVISOR [address] [facility] [place] [address] Assigned PCP 05/21/19 documented as of this encounter
--- OUTSIDE RECORDS SUMMARY | 2023-09-30 09:01 | XMS_ITS | Encounter Summary ---
Author Name Unknown Organization [facility] Address [address] [place] [address] Care Team Providers Care Shipping Clerk Name Role Phone Katelyn Khan APRN MARRIAGE PERFORMER Primary Care Pro vider Katelyn Kahn APRN MARRIAGE PERFORMER Unavailable Encounter Details Date Type Department Care Team (Latest Contact Info) Description 07/02/2023 Travel Social History Tobacco Use Types Packs/Day [...] week 10/22/2022 How often do you attend taoist or christian serv ices? Never 10/22/2022 Do you belong to any clubs o r organizations such as taoist groups, unions, fraternal or athletic groups, or [...] Answer Date Recorded PHQ-2 Score 0 10/22/2022 [facility] - Occupational Stress Questionnaire Answer Date [...] Visit [facility] [place] [address] [place] [phone] Katelyn Khan APRN MARRIAGE PERFORMER [address] [facility] [place] [address] documented as of this encounter Visit Diagnoses Not on filedocumented in this encounter Additional Health Concerns Assessment Noted Time PHQ-9 Depression Total Score: 7 10/23/19 23 10:13 AM CDT documented as of this encounter Care Teams Shipping Clerk Relationship Specialty Start Date End Date Katelyn Khan APRN MARRIAGE PERFORMER [address] [place] [address] [place] [address] PCP - General Family Practice 06/12/19 Katelyn Khan APRN MARRIAGE PERFORMER [address] [place] [address] [place] [address] Assigned PCP 05/21/19 documented as of this encounter
--- OUTSIDE RECORDS SUMMARY | 2023-09-30 09:01 | XMS_ITS | Referral Summary ---
Author Name Unknown Organization [place] Address [address] [place] [address]. [place] [address] Care Team Providers Care Title Lawyer Name Role Phone Katelyn Khan APRN CORN HUSKER Primary Care Pro vider Katelyn Khan APRN CORN HUSKER Unavailable Encounters Date Type Department Care Team Description 07/02/2023 Office Visit [facility] Services - Heart & Vascular Service Line [address] [place] [phone] Herbert Espinal MD related condition, antepartum (Primary Dx) 07/02/2023 Travel 07/02/2023 12:42 PM IRONWORKER MACHINE OPERATOR - 07/02/2023 11:59 PM IRONWORKER MACHINE OPERATOR Hospital Encounter [facility] Care [address] [place] [phone] Maxine Martino CNM related condition, antepartum Discharge Disposition: Home or Self Care from Last 3 Months Allergies Active Allergy Reactions Criticality Noted Date Comments Seasonal Allergies 01/25/2021 Medications Medication Sig Dispensed Refills Start Date End Date Status fluticasone (VERAMYST) 27.5 MCG/SPRAY spray [place] 2 sprays into both nostrils daily Active [...] week 10/22/2022 How often do you attend rastafari or restorationism serv ices? Never 10/22/2022 Do you belong to any clubs o r organizations such as rastafari groups, unions, fraternal or athletic groups, or [...] Score 0 10/22/2022 [facility] - Occupational Stress Questionnaire Answer Date [...] 12/09/2023 10:00 AM CDT Office Visit [facility] [place] [address] [place] [phone] Katelyn Khan, CITRIX ENGINEER CORN HUSKER [address] [facility] [place] [address] Procedures Procedure Name Priority Date/Time Associated Diagnosis Comments ECHO COMPLETE Routine 07/02/2023 1 :22 PM IRONWORKER MACHINE OPERATOR related condition, antepartum HEPATITIS C SCREEN REFLEX TO HCV RNA QUANT AND GENOTYPE Routine 08/11/2021 8:41 AM IRONWORKER MACHINE OPERATOR Need for hepatitis C screening test PAP SMEAR - HIM PATIENT REPORTED Routine 04/03/2019 CL AFF RPR W/REFLEX TITER & CONFIRM Routine 10/02/2000 1:55 AM CDT Skin Sensation Disturb Abnormality Of Gait Idio Periph Neurpthy Nos REMOVE IMPACTED EAR WAX Routine 08/14/2000 1:35 PM IRONWORKER MACHINE OPERATOR Impacted Cerumen from Last 3 Months or Most Recently Relevant to Health Maintenance Results * ECHO COMPLETE (07/02/2023 1:22 PM IRONWORKER MACHINE OPERATOR) Anatomical Region Laterality Modality Echocardiography 07/02/2023 12:5 4 PM IRONWORKER MACHINE OPERATOR Narrative 07/02/2023 3:11 PM IRONWORKER MACHINE OPERATOR [id number]^CORY^MAXINE ? Study ID: [id number] ?[facility] ?[facility] ?[address] ?[place] [address] ? Echocardiogram Name: SABA STEWARD Study Date: 07/02/2023 12:54 PM ?Patient Location: [facility] Gender: Female ? Patient Class: Outpatient : [id number] ?Age: 27 yrs Ordering Provider: MAXINE MARTINO Referring Provider: MAXINE MARTINO Performed By: Tono Brower RCCS Reading Physician: Herbert Espinal MD Reason For Study: related condition, antepartum Data: Number of fetuses: This is a agiular gestation. Due date: 10/24/23. Gestational age: 23w5d. Delivery at: [place]. Specific Indication: In Vitro Fertilization. CONCLUSIONS Normal [...] to the left atrium. There is laminar iznne-sd-ulhy shunting across the foramen ovale. Atrioventricular valves: [...] Procedure Note Herbert Espinal MD - 07/02/2023 [id number]^MILAOSMAN^MAXINE Study ID:[id number] [facility] [address] [place] [address] Echocardiogram Name: SABA STEWARD Study Date: 07/02/2023 12:54 PM Patient Location[facility] Gender: Female Patient Class:Outpatient : [id number] Age: 27 yrs Ordering Provider: MAXINE MARTINO Referring Provider: MAXINE MARTINO Performed By: Tono Brower RCCS Reading Physician: Herbert Espinal MD Reason For Study: related condition, antepartum Data: Number of fetuses: This is a aguilar gestation. Duedate: 10/24/23. Gestational age: 23w5d. Delivery at: [place]. Specific Indication: In Vitro Fertilization. CONCLUSIONS Normal [...] in to the left atrium. There is jiczziygtmlt-py-myos shunting across the foramen ovale. Atrioventricular valves: [...] RNA Quant and Genotype (08/11/2021 8:41 AM IRONWORKER MACHINE OPERATOR) Pathologist [facility] Hepatitis C Antibody Nonreactive Nonreactive 08/11/2021 4:34 PM IRONWORKER MACHINE OPERATOR [facility]PROT/EN DO Blood BLOOD SPECIMEN / Unknown Venipuncture / Unknown 08/11/2021 8:41 AM IRONWORKER MACHINE OPERATOR 08/11/2021 8:41 AM IRONWORKER MACHINE OPERATOR Narrative [facility] SPECIALTY CORE/PROT/ENDO - 08/11/2021 4:34 PM IRONWORKER MACHINE OPERATOR Assay performance characteristics have not been established for newborns, infants, and children. Katelyn Khan APRN CORN HUSKER LAB - BLO OD ORDERABLES UM SPECIALTY CORE/PROT/ENDO [facility] Specialty Core/Prot/Endo [address] [facility] [address] [facility], Room [address] [phone] * PAP Smear - HIM Patient Reported (04/03/2019) Pathologist [facility] PAP Smear - HIM Patient Reported Unknown EXTERNAL LAB 04/03/2019 Narrative EXTERNAL LAB - 04/03/2019 Daria Guevara CMA ??P Abstract Quality Initiatives ?? Pap smear done with MANUFACTURING PRODUCTION MANAGER at [employer] 04-03-19 Patient Reported LABORATORY EXTERNAL LAB External Lab * RPR W/REFLEX TITER & CONFIRM (10/02/2000 1:55 AM CDT) Pathologist [facility] RPR Screen NON-REACTI VE NON - REACTIVE OMAR FR[facility]KS 10/01/2000 Clifford Lockett MD LABORATORY OMAR FRANKS from Last 3 Months or Most Recently Relevant to Health Maintenance Care Teams Title Lawyer Relationship Specialty Start Date End Date Katelyn Khan APRN CORN HUSKER [facility] [place] [address] PCP - General Family Practice 06/12/19 Katelyn Khan APRN CORN HUSKER [address] [place] [address] [place] [address] Assigned PCP 05/21/19
--- OUTSIDE RECORDS SUMMARY | 2023-09-30 09:02 | XMS_ITS | Encounter Summary ---
Author Name Unknown Organization [place] Address [address] [place] [address]. [place] [address] Care Team Providers Care Payroll Auditor Name Role Phone Katelyn Khan APRN PREDATORY ANIMAL TRAPPER Primary Care Pro vider Katelyn Khan APRN PREDATORY ANIMAL TRAPPER Unavailable Reason for Visit * Reason Onset Date Comments MyChart Communication 11/02/2022 Rabies tit er question Encounter Details Date Type Department Care Team (Latest Contact Info) Description 11/02/2022 [facility] Medical Advice [facility] [place] [address] [place] [phone] Katelyn Khan APRN [facility] [address] [facility] [place] [address] MyChart Communication (Rabies titer question) Social [...] How often do you attend faith or spiritism serv ices? Never 10/22/2022 Do you belong [...] [facility] Occupat ional [facility] - Occupational Stress Questionnaire Answer [...] place to sleep or slept in a usp (including now)? No 10/22/2022 Education Answer Date [...] included. Per lab guide: Rabies Antibody Screen, Humans??[[id number]] Abbrev??Code: ?? RABSCN Epic Code: ?? [id number] Epic Name: ?? Rabies Antibody Screen, Humans Methodology: ?? Rapid fluorescent foci inhibition (RFFIT) Turnaround Time: ?? [facility]im[facility]; results are reported within 21-31 days. documented in this encounter Plan of Treatment Upcoming Encounters Date Type Department Care Team (Late st Contact Info) Description 12/09/2023 10:00 AM CDT Office Visit [facility] [place] [address] [place] [phone] Katelyn Khan APRN [facility] [address] [place] [address] [place] [id number] documented as of this encounter Visit Diagnoses Not on filedocumented in this encounter Additional Health Concerns Assessment Noted Time PHQ-9 Depression Total Score: 7 10/23/19 23 10:13 AM CDT documented as of this encounter Care Teams Payroll Auditor Relationship Specialty Start Date End Date Katelyn Khan APRN PREDATORY ANIMAL TRAPPER [facility] [place] [address] PCP - General Family Practice 06/12/19 Katelyn Khan APRN PREDATORY ANIMAL TRAPPER [facility] [place] [address] Assigned PCP 05/21/19 documented as of this encounter
--- OUTSIDE RECORDS SUMMARY | 2023-09-30 09:02 | XMS_ITS | Encounter Summary ---
Author Name Unknown Organization [place] Address [facility] [place] [address] Care Team Providers Care Internal Audit Senior Manager Name Role Phone Katelyn Khan APRN INSPECTOR AND ADJUSTER GOLF CLUB HEAD Primary Care Pro vider Katelyn Khan APRN INSPECTOR AND ADJUSTER GOLF CLUB HEAD Unavailable Encounter Details Date Type Department Care Team (Late st Contact Info) Description 05/08/2022 MyC Medical Advice M [facility] [address] [facility] [place] [phone] Britt Bauer, TRACTOR OPERATOR HELPER Social History Tobacco Use Types Packs/Day Years [...] than three times a week 06/12/2019 Attends Church Services Never 06/12 Active Member of Clubs [...] points; Administer PHQ-9 if positive 0 05/09/2022 [facility] [place] of Occupat ional Health - Occupational Stress [...] 12/09/2023 10:00 AM CDT Office Visit [facility] [place] [address] [place] [address] Drive [address] [place] [phone] Katelyn Khan APRN INSPECTOR AND ADJUSTER GOLF CLUB HEAD [address] [place] [address] [place] [address] documented as of this encounter Visit Diagnoses Not on filedocumented in this encounter Additional Health Concerns Assessment Noted Time PHQ-9 Depression Total Score: 3 05/09/20 22 11:23 AM GUN EXAMINER documented as of this encounter Care Teams Internal Audit Senior Manager Relationship Specialty Start Date End Date Katelyn Khan APRN INSPECTOR AND ADJUSTER [employer] HEAD [address] [place] [address] [place] [address] PCP - General Family Practice 06/12/19 Katelyn Khan, MARS INSPECTOR AND ADJUSTER [employer]OL[employer] HEAD [address] [facility] [place] [address] Assigned PCP 05/21/19 documented as of this encounter
--- OUTSIDE RECORDS SUMMARY | 2023-09-30 09:02 | XMS_ITS | Encounter Summary ---
Author Name Unknown Organization [place] Address [facility] [place] [address] Care Team Providers Care Gynaecological Oncologist Name Role Phone Katelyn Khan APRN BODY SERVICE TEAM MEMBER Primary Care Pro vider Juan Antonio Arteaga RN Unavailable Unav ailable Katelyn Khan APRN BODY SERVICE TEAM MEMBER Unavailable Harish Zavaleta DIRECTOR CORRECTIONAL AGENCY Unavailable Encounter Details Date Type Department Care Team (Late st Contact Info) Description 09/14/[address] [facility] [place] [address] [facility] [address] [place] [phone] Kim [...] Answer Date Recorded PHQ-2 Score 1 06/12/2019 [facility] of Occupat ional Health - Occupational Stress [...] 12/09/2023 10:00 AM CDT Office Visit [facility] [place] [address] [place] [phone] Katelyn Khan APRN [facility] [place] [address] [facility] [place] [address] documented as of this encounter Visit Diagnoses Not on filedocumented in this encounter Additional Health Concerns Infection Onset Date Last Indicated Resolved Time Rule Out COVID-19 01/25/2021 01/25/2021 01/25/2021 5:51 PM CDT Assessment Noted Time PHQ-9 Depression Total Score: 11 020 11:29 AM OTR DRIVER documented as of this encounter Care Teams Gynaecological Oncologist Relationship Specialty Start Date End Date Katelyn Khan APRN BODY SERVICE TEAM MEMBER [address] [facility] [place] [address] PCP - General Family Practice 06/12/19 Juan Antonio Arteaga, RN Personal Advocate & Liaison (PAL) 06/15/19 11/07/20 Katelyn Khan APRN BODY SERVICE TEAM MEMBER [address] [facility] [place] [address] Assigned PCP 05/21/19 Harish Zavaleta LMFT [address] [place] [address] Assigned Behavioral Health Provider 04/23/21 05/06/21 documented as of this encounter
--- OUTSIDE RECORDS SUMMARY | 2023-09-30 09:02 | XMS_ITS | Encounter Summary ---
Author Name Unknown Organization [place] Address [facility] [place] [address] Care Team Providers Care Physician Executive Name Role Phone Katelyn Khan APRN HOUSE SERVANT Primary Care Pro vider Katelyn Khan APRN HOUSE SERVANT Unavailable Encounter Details Date Type Department Care Team (Late st Contact Info) Description 09/17/2022 Shantanu Medical Advice M [facility] [address] [facility] [address] [place] [phone] Terri [...] than three times a week 06/12/2019 Attends [employer] Never 06/12 Active Member of Clubs [...] points; Administer PHQ-9 if positive 0 05/09/2022 [facility] [place] of Occupat ional Health - Occupational Stress [...] Description 12/09/2023 10:00 AM CDT Office Visit [facility] [place] [address] [place] [phone] Katelyn Khan, JAVA SQL DEVELOPER HOUSE SERVANT [address] [facility] [place] [id number] documented as of this encounter Visit Diagnoses Not on filedocumented in this encounter Additional Health Concerns Assessment Noted Time PHQ-9 Depression Total Score: 3 05/09/20 22 11:23 AM PROJECT SYSTEMS ENGINEER documented as of this encounter Care Teams Physician Executive Relationship Specialty Start Date End Date Katelyn Khan APRN HOUSE SERVANT [address] [facility] [place] [address] PCP - General Family Practice 06/12/19 Katelyn Khan APRN HOUSE SERVANT [address] [facility] [place] [address] Assigned PCP 05/21/19 documented as of this encounter
--- OUTSIDE RECORDS SUMMARY | 2023-09-30 09:02 | XMS_ITS | Encounter Summary ---
Author Name Unknown Organization [place] Address [address] [place] [address]. [place] [address] Care Team Providers Care Communications Administrator Name Role Phone Katelyn Khan APRN TILE MOLDER Primary Care Pro vider Katelyn Khan APRN TILE MOLDER Unavailable Reason for Visit * Reason Comments Ultrasound L2- IVF, BMI >40, green bopt views on outside [place] Encounter Details Date Type Department Care Team (Late st Contact Info) Description 06/25/2023 PRE VISIT [facility] [address] [phone] Julisa Kenny RN Ultrasound (L2- IVF, BMI >40, subopt views on outside [place] ) Social History Tobacco Use Types Packs/Day Years [...] week 10/22/2022 How often do you attend mu-ism or pentecostal serv ices? Never 10/22/2022 Do you belong to any clubs o r organizations such as mu-ism groups, unions, fraternal or athletic groups, or [...] Answer Date Recorded PHQ-2 Score 0 10/22/2022 [facility] of Occupat ional Health - Occupational [...] Description 12/09/2023 10:00 AM CDT Office Visit [facility] [place] [address] [place] [address] Drive [address] [place] [phone] Katelyn Khan APRN TILE MOLDER [address] [place] [address] [place] [phone] documented as of this encounter Visit Diagnoses Not on filedocumented in this encounter Additional Health Concerns Assessment Noted Time PHQ-9 Depression Total Score: 7 10/23/19 23 10:13 AM CDT documented as of this encounter Care Teams Communications Administrator Relationship Specialty Start Date End Date Katelyn Khan APRN TILE MOLDER [address] [place] [address] [place] [address] PCP - General Family Practice 06/12/19 Katelyn Khan APRN TILE MOLDER [address] [place] [address] [place] [address] Assigned PCP 05/21/19 documented as of this encounter
--- OUTSIDE RECORDS SUMMARY | 2023-09-30 09:02 | XMS_ITS | Encounter Summary ---
Author Name Unknown Organization [place] Address [address] [place] [address]. [place] [address] Care Team Providers Care Attendant [facility] Name Role Phone Katelyn Khan APRN FISH BIN TENDER Primary Care Pro vider Katelyn Khan APRN FISH BIN TENDER Unavailable Encounter Details Date Type Department Care Team (Late st Contact Info) Description 04/16/2023 [facility] Medical Advice M [facility] [address] [facility] [address] [place] [phone] Ema Guillory [...] week 10/22/2022 How often do you attend anglican or jehovah's witness serv ices? Never 10/22/2022 Do you belong to any clubs o r organizations such as anglican groups, unions, fraternal or athletic groups, or [...] 0 10/22/2022 [facility] of Occupat ional Health - Occupational Stress [...] place to sleep or slept in a detention (including now)? No 10/22/2022 Adolescent Education Answer [...] 12/09/2023 10:00 AM CDT Office Visit [facility] [place] [address] [place] [address] Drive [address] [place] [phone] Katelyn Khan APRN FISH BIN TENDER [address] [place] [address] [place] [address] documented as of this encounter Visit Diagnoses Not on filedocumented in this encounter Additional Health Concerns Assessment Noted Time PHQ-9 Depression Total Score: 7 10/23/19 23 10:13 AM CDT documented as of this encounter Care Teams Attendant [facility] Relationship Specialty Start Date End Date Katelyn Khan APRN FISH BIN TENDER [address] [place] [address] [place] [address] PCP - General Family Practice 06/12/19 Kateyln Khan APRN FISH BIN TENDER [address] [place] [address] [place] [address] Assigned PCP 05/21/19 documented as of this encounter
--- OUTSIDE RECORDS SUMMARY | 2023-09-30 09:02 | XMS_ITS | Encounter Summary ---
Author Name Unknown Organization [place] Address [address] [place] [address]. [place] [address] Care Team Providers Care Union Organiser Name Role Phone Katelyn Khan APRN MILL DRESSER Primary Care Pro vider Juan Antonio Arteaga RN Unavailable Unav ailable Katelyn Khan APRN MILL DRESSER Unavailable Harish Zavaleta [facility] Unavailable Encounter Details Date Type Department Care Team (Late st Contact Info) Description 06/25/2019 MyC Medical Advice M [facility] [place] [address] [place] [phone] Katelyn Khan APRN [facility] [address] [facility] [place] [address] Social History Tobacco [...] than three times a week 06/12/2019 Attends Jewish Services Never 06/12 Active Member of Clubs [...] Answer Date Recorded PHQ-2 Score 1 06/12/2019 [facility] [place] of Occupat ional Health - Occupational Stress [...] Antonio Arteaga RN - 06/26/2019 7:47 AM TAG WRITER Sent pt a [employer] message. - Jose Arteaga RN - Patient Advocate Liason (PAL) [facility] WRITER documented in this encounter Plan of Treatment Upcoming Encounters Date Type Department Care Team (Late st Contact Info) Description 12/09/2023 10:00 AM CDT Office Visit [facility] [address] [place] [phone] Katelyn Khan APRN MILL DRESSER [address] [place] [address] [place] [address] documented as of this encounter Visit Diagnoses Not on filedocumented in this encounter Additional Health Concerns Infection Onset Date Last Indicated Resolved Time Rule Out COVID-19 01/25/2021 01/25/2021 01/25/2021 5:51 PM CDT Assessment Noted Time PHQ-9 Depression Total Score: 11 020 11:29 AM TAG WRITER documented as of this encounter Care Teams Union Organiser Relationship Specialty Start Date End Date Katelyn Khan APRN MILL DRESSER [address] [place] [address] [place] [address] PCP - General Family Practice 06/12/19 Juan Antonio Arteaga, RN Personal Advocate & Liaison (PAL) 06/15/19 11/07/20 Katelyn Khan APRN MILL DRESSER [address] [place] [address] [place] [address] Assigned PCP 05/21/19 Harish Zavaleta LMFT [address] [place] [address] Assigned Behavioral Health Provider 04/23/21 05/06/21 documented as of this encounter
--- OUTSIDE RECORDS SUMMARY | 2023-09-30 09:02 | XMS_ITS | Encounter Summary ---
Author Name Unknown Organization [place] Address [facility] [place] [address] Care Team Providers Care Fill Plant Operator Name Role Phone Katelyn Khan APRN PHYSICIAN GENERAL INTERNAL MEDICINE Primary Care Pro vider Katelyn Khan APRN PHYSICIAN GENERAL INTERNAL MEDICINE Unavailable Reason for Visit * Diagnostic Imaging Ultrasound (Routine) - Pending Review Specialty Diagnoses / Procedures Referred By Irina t Referred To Contact Radiology. Diagnoses related condition, antepartum Procedures MF US Comprehensive [facility] Maxine Martino CNM [facility] [address] [place] [address] Referral ID Status Reason Start Date Expiration Date V isits Requested Visits Authorized [id number] Pending Review 06/17/2023 06/16/2024 1 1 Encounter Details Date Type Department Care Team (Latest Contact Info) Description 06/27/2023 8:45 AM BARIATRIC COORDINATOR Ancillary Procedure [facility] [address] [place] [address] Maxine Rudolph MD [address] [place] [id number] related condition, antepartum Social History Tobacco Use Types Packs/Day Years [...] week 10/22/2022 How often do you attend congregational or congregational serv ices? Never 10/22/2022 Do you belong to any clubs o r organizations such as congregational groups, unions, fraternal or athletic groups, or [...] Answer Date Recorded PHQ-2 Score 0 10/22/2022 [facility] of Occupat ional Health - Occupational [...] Description 12/09/2023 10:00 AM CDT Office Visit [address] [place] [phone] Katelyn Khan APRN [facility] [address] [facility] [place] [address] documented as of this encounter Procedures Procedure Name Priority Date/Time Associated Diagnosis Comments [facility] US COMPREHENSIVE SINGLE Routine 06/27/2023 9:33 AM BARIATRIC COORDINATOR related condition, antepartum documented in this encounter Results * [facility] US Comprehensive Single (06/27/2023 9:33 AM BARIATRIC COORDINATOR) Anatomical Region Laterality Modality Ultrasound 06/27/2023 8:48 AM BARIATRIC COORDINATOR Impressions 06/27/2023 2:02 PM BARIATRIC COORDINATOR IMPRESSION ----- 1) Nowak intrauterine at 23w 0d gestational age. 2) None of the anomalies commonly detected by ultrasound were evident in the detailed anatomic survey described above, although evaluation of anatomy was suboptimal as noted above (ductal arch). 3) Growth parameters and estimated weight were consistent with an appropriate for gestation age pattern of growth. 4) The amniotic fluid volume appeared normal. Narrative 06/27/2023 2:02 PM BARIATRIC COORDINATOR ?Comprehensive ----- Pat. Name: DANTE STEWARDN ? Study Date: ??06/27/2023 8:48am Pat. NO: ??[id number] ?Referring ??: MAXINE MARTINO Site: ??[facility] ? Manager Lighting: Lelo Garcia RDMS : ??1995 ?Age: ?? 27 ----- INDICATION ----- In Vitro Fertilization. Obesity. METHOD ----- Transabdominal ultrasound examination. View: Suboptimal view: limited by maternal body habitus ----- Nowak . Number of fetuses: 1 DATING ----- ? Date ?Details ?Gest. age ?LUIS ALBERTO Conception ? Conception: IVF Embryo transfer ?02/05/2023 ?IVF / ET: 5 d ?23 w + 0 d ? 10/24/2023 Prior assessment ? 06/13/2023 ? GA: 21 w + 3 d ? 23 w + 3 d ? 10/21/2023 U/S ? 06/27/2023 ? based upon AC, BPD, Femur, HC ?23 w + 6 d ? 10/18/2023 Assigned dating ?Dating performed on 06/27/2023, based on the IVF / ET date ?23 w + 0 d ? 10/24/2023 GENERAL EVALUATION ----- Cardiac activity present. FHR 164 bpm. movements present. Presentation cephalic. Placenta Posterior, No Previa, > 2 cm from internal os. Umbilical cord Cord vessels: 3 vessel cord. Insertion site: normal insertion. Amniotic fluid MVP 7.9, normal MVP, cm. BIOMETRY ----- Main Biometry: BPD ?58.3 ?mm ? 23w 6d ?Hadlock OFD ?75.7 ?mm ? 23w 1d ?Nicolaides HC ?215.4 ?mm ?23w 4d ?Hadlock Cerebellum tr ?25.8 ? mm ?23w 6d ?Nicolaides AC ?204.4 ?mm ?25w 0d ?93% ?Hadlock Femur ?40.5 ? mm ?23w 1d ?Hadlock Humerus ?37.6 ?mm ? 23w 1d ?Giovana Weight Calculation: EFW ? 664 ? g ? 90% ?Hadlock EFW (lb,oz) ? 1 lb 7 ?oz EFW by ?Kenisha ([id number]) Head / Face / Neck Biometry: Bundle Person ? 5.8 ? mm CM ?6.4 ? mm Nasal bone ? 7.1 ? mm ANATOMY ----- The following structures appear normal: Head / Neck ? Cranium. Head size. Head shape. Lateral ventricles. Choroid plexus. Midline falx. Cavum septi pellucidi. Cerebellum. Cisterna magna. ? Parenchyma. Thalami. Vermis. ? Neck. Nuchal fold. Face ? Lips. Profile. Nose. Maxilla. Mandible. Orbits. Lens. Heart / Thorax ?4-chamber view. RVOT view. LVOT view. Situs. Aortic arch view. Bicaval view. Superior vena cava. Inferior vena cava. 3-vessel view. ? 3-mfbulf-zlbcdts view. Cardiac position. Cardiac size. Cardiac rhythm. ? Right lung. Left lung. Diaphragm. Abdomen ? Abdominal wall. Cord insertion. Stomach. Kidneys. Bladder. Liver. Bowel. Genitals. Spine ?Cervical spine. Thoracic spine. Lumbar spine. Sacral spine. Extremities / Skeleton ?Right arm. Right hand. Left arm. Left hand. Right leg. Right foot. Left leg. Left foot. The following structures could not be adequately visualized: Heart / Thorax ?Ductal arch view. Gender: female. MATERNAL STRUCTURES ----- Cervix ?Visualized ? Appearance: Appears Closed ? Cervical length 37.5 mm Right Ovary ?Visualized Left Ovary ?Visualized RECOMMENDATION ----- We discussed the findings on today's ultrasound with the patient. A echocardiogram is recommended given the history of IVF conception and sub-optimal cardiac view on today's ultrasound and has been scheduled with Pediatric Cardiology on 07/02/2023. Additionally, a repeat assessment of growth is recommended at 32 weeks gestation, as well as surveillance with weekly BPP beginning at 36 weeks gestation given the history of IVF conception. We presume these appointments will be scheduled in your office. Return to primary provider for continued care. Thank you for the opportunity to participate in the care of this patient. If you have questions regarding today's evaluation or if we can be of further service, please contact the Maternal- Medicine Center. anomalies may be present but not detected Procedure Note Maxine Rudolph MD - 06/27/2023 Comprehensive ----- Pat. Name: SABA STEWARD Study Date: 06/27/2023 8:48am Pat. NO: [id number] Referring MD: MAXINE MARTINO Site: [facility] Manager Lighting: Lelo Garcia RDMS : 1995 Age: 27 ----- INDICATION ----- In Vitro Fertilization. Obesity. METHOD ----- Transabdominal ultrasound examination. View: Suboptimal view: limited bymaternal body habitus ----- Nowak . Number of fetuses: 1 DATING ----- DateDetailsGest. age LUIS ALBERTO ConceptionConception: IVF Embryo transfer 02/05/2023 IVF /ET: 5 d23 w + 0 d 10/24/2023 Prior assessment 06/13/2023 GA: 21 w+ 3 d23 w + 3 d 10/21/2023 U/S 06/27/2023ased upon AC, BPD, Femur, HC23 w + 6 d 10/18/2023 Assigned dating Dating performed on 06/27/2023, based onthe IVF / ET date 23 w + 0d 10/24/2023 GENERAL EVALUATION ----- Cardiac activity present. FHR 164 bpm. movements present. Presentation cephalic. Placenta Posterior, No Previa, > 2 cm from internal os. Umbilical cord Cord vessels: 3 vessel cord. Insertion site: normalinsertion. Amniotic fluid MVP 7.9, normal MVP, cm. BIOMETRY ----- Main Biometry: BPD 58.3 mm23w 6d Hadlock OFD 75.7 mm23w 1d Nicolaides HC 215.4 mm23w 4d Hadlock Cerebellum tr 25.8 mm23w 6d Nicolaides AC 204.4 mm25w 0d 93% Hadlock Femur 40.5 mm23w 1d Hadlock Humerus 37.6 mm23w 1d Giovana Weight Calculation: EFW 664 g90% Hadlock EFW (lb,oz) 1 lb 7 oz EFW by Hadlock ([id number]-FL) Head / Face / Neck Biometry: Bundle Person 5.8 mm CM 6.4 mm Nasal bone 7.1 mm ANATOMY ----- The following structures appear normal: Head / Neck Cranium. Head size. Head shape.Lateral ventricles. Choroid plexus. Midline falx. Cavum septi pellucidi.Cerebellum. Cisterna magna. Parenchyma. Thalami. Vermis. Neck. Nuchal fold. Face Lips. Profile. Nose. Maxilla.Mandible. Orbits. Lens. Heart / Thorax 4-chamber view. RVOT view. LVOT view.Situs. Aortic arch view. Bicaval view. Superior vena cava. Inferior venacava. 3-vessel view. 4-taxmxp-cbjqswn view. Cardiacposition. Cardiac size. Cardiac rhythm. Right lung. Left lung.Diaphragm. Abdomen Abdominal wall. Cord insertion.Stomach. Kidneys. Bladder. Liver. Bowel. Genitals. Spine Cervical spine. Thoracic spine.Lumbar spine. Sacral spine. Extremities / Skeleton Right arm. Right hand. Left arm. Lefthand. Right leg. Right foot. Left leg. Left foot. The following structures could not be adequately visualized: Heart / Thorax Ductal arch view. Gender: female. MATERNAL STRUCTURES ----- Cervix Visualized Appearance: Appears Closed Cervical length 37.5 mm Right Ovary Visualized Left Ovary Visualized RECOMMENDATION ----- We discussed the findings on today's ultrasound with the patient. A echocardiogram is recommended given the history of IVF conceptionand sub-optimal cardiac view on today's ultrasound and has been scheduledwith Pediatric Cardiology on 07/02/2023. Additionally, a repeat assessment of growthis recommended at 32 weeks gestation, as well as surveillancewith weekly BPP beginning at 36 weeks gestation given the history of IVF conception. Wepresume these appointments will be scheduled in your office. Return to primary provider for continued care. Thank you for the opportunity to participate in the care of this patient.If you have questions regarding today's evaluation or if we can be offurther service, please contact the Maternal- Medicine Center. anomalies may be present but not detected IMPRESSION ----- 1) Nowak intrauterine at 23w 0d gestational age. 2) None of the anomalies commonly detected by ultrasound were evident inthe detailed anatomic survey described above, although evaluation offetal anatomy was suboptimal as noted above (ductal arch). 3) Growth parameters and estimated weight were consistent with anappropriate for gestation age pattern of growth. 4) The amniotic fluid volume appeared normal. Maxine Martino [facility] US ORDERABLE S documented in this encounter Visit Diagnoses Diagnosis related condition, antepartum documented in this encounter Additional Health Concerns Assessment Noted Time PHQ-9 Depression Total Score: 7 10/23/19 23 10:13 AM CDT documented as of this encounter Care Teams Fill Plant Operator Relationship Specialty Start Date End Date Katelyn Khan APRN PHYSICIAN GENERAL INTERNAL MEDICINE [address] [place] [address] [place] [address] PCP - General Family Practice 06/12/19 Katelyn Khan APRN PHYSICIAN GENERAL INTERNAL MEDICINE [address] [place] [address] [place] [address] Assigned PCP 05/21/19 documented as of this encounter
--- OUTSIDE RECORDS SUMMARY | 2023-09-30 09:02 | XMS_ITS | Encounter Summary ---
Author Name Unknown Organization [place] Address [address] [place] [address]. [place] [address] Care Team Providers Care Retail Service Specialist Name Role Phone Katelyn Khan APRN BATTERY TESTER FIELD Primary Care Pro vider Katelyn Khan APRN BATTERY TESTER FIELD Unavailable Reason for Visit * Reason Comments Medication Refill Encounter Details Date Type Department Care Team (Late st Contact Info) Description 02/05/2022 Refill M [facility] [place] [address] [place] [phone] Katelyn Khan APRN BATTERY TESTER FIELD [address] [facility] [place] [id number] Medication Refill Social History Tobacco Use Types [...] than three times a week 06/12/2019 Attends Evangelical Services Never 06/12 Active Member of Clubs [...] Date Recorded PHQ-2 Score 1 09/15/2021 [facility] of Occupat ional Health - Occupational [...] pt schedule follow up and update PHQ-9. Bilile West RN, BSN [facility] documented in this encounter Plan of Treatment Upcoming Encounters Date Type Department Care Team (Late st Contact Info) Description 12/09/2023 10:00 AM CDT Office Visit [facility] [place] [address] [place] [address] Drive [address] [place] [phone] Katelyn Khan APRN BATTERY TESTER FIELD [address] [place] [address] [place] [address] documented as of this encounter Visit Diagnoses Diagnosis Moderate episode of recurrent major depressive disorder (H) Anxiety Anxiety state, unspecified Morbid obesity (H) Morbid obesity documented in this encounter Additional Health Concerns Assessment Noted Time PHQ-9 Depression Total Score: 3 09/16/19 22 9:16 AM CDT documented as of this encounter Care Teams Retail Service Specialist Relationship Specialty Start Date End Date Katelyn Khan APRN BATTERY TESTER FIELD [address] [place] [address] [place] [address] PCP - General Family Practice 06/12/19 Katelyn Khan APRN BATTERY TESTER FIELD [address] [place] [address] [place] [address] Assigned PCP 05/21/19 documented as of this encounter
--- OUTSIDE RECORDS SUMMARY | 2023-09-30 09:02 | XMS_ITS | Encounter Summary ---
Author Name Unknown Organization [place] Address [facility] [place] [address] Care Team Providers Care Park Aide Name Role Phone Katelyn Khan APRN SAMPLE TAKER OPERATOR Primary Care Pro vider Juan Antonio Arteaga RN Unavailable Unav ailable Katelyn Khan APRN SAMPLE TAKER OPERATOR Unavailable Harish Zavaleta CENTRAL OFFICE MAINTAINER Unavailable Encounter Details Date Type Department Care Team (Late st Contact Info) Description 09/14/[address] [facility] [place] [address] [facility] [address] [place] [phone] Kim [...] than three times a week 06/12/2019 Attends Buddhism Services Never 06/12 Active Member of Clubs [...] Answer Date Recorded PHQ-2 Score 1 06/12/2019 [facility] of Occupat ional Health - Occupational Stress [...] 12/09/2023 10:00 AM CDT Office Visit [facility] [place] [address] [place] [phone] Katelyn Khan APRN [facility] [address] [facility] [place] [address] documented as of this encounter Visit Diagnoses Not on filedocumented in this encounter Additional Health Concerns Infection Onset Date Last Indicated Resolved Time Rule Out COVID-19 01/25/2021 01/25/2021 01/25/2021 5:51 PM CDT Assessment Noted Time PHQ-9 Depression Total Score: 11 020 11:29 AM ORTHOPHOTOGRAPHY TECHNICIAN documented as of this encounter Care Teams Park Aide Relationship Specialty Start Date End Date Katelyn Khan APRN SAMPLE TAKER OPERATOR [address] [facility] [place] [address] PCP - General Family Practice 06/12/19 Juan Antonio Arteaga, RN Personal Advocate & Liaison (PAL) 06/15/19 11/07/20 Katelyn Khan APRN SAMPLE TAKER OPERATOR [address] [facility] [place] [address] Assigned PCP 05/21/19 Harish Zavaleta LMFT [address] [place] [address] Assigned Behavioral Health Provider 04/23/21 05/06/21 documented as of this encounter
--- OUTSIDE RECORDS SUMMARY | 2023-09-30 09:02 | XMS_ITS | Encounter Summary ---
Author Name Unknown Organization [place] Address [facility] [address] Care Team Providers Care Substation Supervisor Name Role Phone Katelyn Khan APRN INSURANCE SALES SPECIALIST Primary Care Pro vider Katelyn Khan APRN INSURANCE SALES SPECIALIST Unavailable Encounter Details Date Type Department Care Team (Late st Contact Info) Description 02/08/2022 MyC Medical Advice [facility] [address] [facility] [address] [place] [phone] Britt Bauer, PERSONAL SECURITY SPECIALIST Social History Tobacco Use Types Packs/Day Years [...] than three times a week 06/12/2019 Attends Mormon Services Never 06/12 Active Member of Clubs [...] Answer Date Recorded PHQ-2 Score 1 09/15/2021 [facility] of Occupat ional Health - Occupational Stress [...] Description 12/09/2023 10:00 AM CDT Office Visit [facility] [place] [address] [place] [address] Drive [address] [place] [phone] Katelyn Khan APRN INSURANCE SALES SPECIALIST [address] [place] [address] [place] [address] documented as of this encounter Visit Diagnoses Not on filedocumented in this encounter Additional Health Concerns Assessment Noted Time PHQ-9 Depression Total Score: 3 09/16/19 22 9:16 AM CDT documented as of this encounter Care Teams Substation Supervisor Relationship Specialty Start Date End Date Katelyn Khan APRN CNP [address] [place] [address] [place] [address] PCP - General Family Practice 06/12/19 Katelyn Khan, BOX BLANK MACHINE OPERATOR INSURANCE SALES SPECIALIST [address] [facility] [place] [address] Assigned PCP 05/21/19 documented as of this encounter
--- OUTSIDE RECORDS SUMMARY | 2023-09-30 09:02 | XMS_ITS | Encounter Summary ---
Author Name Unknown Organization [place] Address [address] [place] [address] Care Team Providers Care Excavator Operator Name Role Phone Katelyn Khan APRN SPECIAL FORCES OFFICER Primary Care Pro vider Juan Antonio Arteaga RN Unavailable Unav ailable Katelyn Khan APRN SPECIAL FORCES OFFICER Unavailable Harish Zavaleta [facility] Unavailable Encounter Details Date Type Department Care [...] than three times a week 06/12/2019 Attends Jew Services Never 06/12 Active Member of Clubs [...] Answer Date Recorded PHQ-2 Score 1 06/12/2019 [facility] [place] of Occupat ional Health - Occupational Stress [...] Description 12/09/2023 10:00 AM CDT Office Visit [facility] [place] [address] [facility] [address] [place] [phone] Katelyn Khan APRN SPECIAL FORCES OFFICER [address] [place] [address] [place] [address] documented as of this encounter Visit Diagnoses Not on filedocumented in this encounter Additional Health Concerns Infection Onset Date Last Indicated Resolved Time Rule Out COVID-19 01/25/2021 01/25/2021 01/25/2021 5:51 PM CDT Assessment Noted Time PHQ-9 Depression Total Score: 11 020 11:29 AM INTELLIGENCE GROUP SUPERVISOR documented as of this encounter Care Teams Excavator Operator Relationship Specialty Start Date End Date Katelyn Khan, BEACH EXPERT SPECIAL FORCES OFFICER [address] [facility] [place] [address] PCP - General Family Practice 06/12/19 Juan Antonio Arteaga, RN Personal Advocate & Liaison (PAL) 06/15/19 11/07/20 Katelyn Khan, BEACH EXPERT SPECIAL FORCES OFFICER [address] [facility] [place] [address] Assigned PCP 05/21/19 Harish Zavaleta LMFT [address] [place] [address] [address] [place] [address] Assigned Behavioral Health Provider 04/23/21 05/06/21 documented as of this encounter
--- OUTSIDE RECORDS SUMMARY | 2023-09-30 09:02 | XMS_ITS | Encounter Summary ---
Author Name Unknown Organization [place] Address [facility] [address] Care Team Providers Care Can Tender Name Role Phone Katelyn Khan APRN SENIOR NET SOFTWARE DEVELOPER Primary Care Pro vider Katelyn Khan APRN SENIOR NET SOFTWARE DEVELOPER Unavailable Encounter Details Date Type Department Care Team (Latest Contact Info) Description 06/27/2023 9:15 AM PROGRAM DIR Office Visit [facility] [address] [phone] Sindhu Rudolph MD [address] [place] [id number] resulting from in vitro fertilization in second trimester (Primary Dx); Obesity affecting in second trimester, unspecified obesity type Social History Tobacco Use Types Packs/Day Years [...] How often do you attend mu-ism or temple serv ices? Never 10/22/2022 Do you belong [...] Answer Date Recorded PHQ-2 Score 0 10/22/2022 [facility] of Occupat ional Health - Occupational [...] as of this encounter Progress Notes * Sindhu Rudolph MD - 06/27/2023 9:15 AM CST Please see the imaging tab for details of the ultrasound performed today. Sindhu Rudolph MD Specialist in Maternal- Medicine RAM DIR documented in this encounter Plan of Treatment Upcoming Encounters Date Type Department Care Team (Late st Contact Info) Description 12/09/2023 10:00 AM CDT [facility] Visit [facility] [address] [place] [address] Drive [address] [place] [phone] Katelyn Khan APRN SENIOR NET SOFTWARE DEVELOPER [address] [place] [address] [place] [address] documented as of this encounter Visit Diagnoses Diagnosis resulting from in vitro fertilization in second trimester- Primary Obesity affecting in second trimester, unspecified obesity type documented in this encounter Additional Health Concerns Assessment Noted Time PHQ-9 Depression Total Score: 7 10/23/19 23 10:13 AM CDT documented as of this encounter Care Teams Can Tender Relationship Specialty Start Date End Date Katelyn Khan APRN SENIOR NET SOFTWARE DEVELOPER [address] [place] [address] [place] [id number] PCP - General Family Practice 06/12/19 Katelyn Khan APRN SENIOR NET SOFTWARE DEVELOPER [address] [place] [address] Assigned PCP 05/21/19 documented as of this encounter
--- OUTSIDE RECORDS SUMMARY | 2023-09-30 09:02 | XMS_ITS | Encounter Summary ---
Author Name Unknown Organization [place] Address [facility] [place] [address] Care Team Providers Care Outdoor Adventure Guides Name Role Phone Katelyn Khan APRN RESERVATION CLERK Primary Care Pro vider Juan Antonio Arteaga RN Unavailable Unav ailable Katelyn Khan APRN RESERVATION CLERK Unavailable Harish Zavaleta [facility] Unavailable Encounter Details Date Type Department Care Team (Late st Contact Info) Description 10/02/2019 MyC Medical Advice [facility] [address] [facility] [address] [place] [phone] Daria Guevara [...] Answer Date Recorded PHQ-2 Score 2 10/06/2019 [facility] of Occupat ional Health - Occupational Stress [...] Description 12/09/2023 10:00 AM CDT Office Visit [facility] [place] [address] [facility] [address] [place] [phone] Katelyn Khan APRN [facility] [address] [facility] [place] [address] documented as of this encounter Visit Diagnoses Not on filedocumented in this encounter Additional Health Concerns Infection Onset Date Last Indicated Resolved Time Rule Out COVID-19 01/25/2021 01/25/2021 01/25/2021 5:51 PM CDT Assessment Noted Time PHQ-9 Depression Total Score: 12 020 7:03 AM CDT documented as of this encounter Care Teams Outdoor Adventure Guides Relationship Specialty Start Date End Date Katelyn Khan APRN RESERVATION CLERK [address] [facility] [place] [address] PCP - General Family Practice 06/12/19 Juan Antonio Arteaga, RN Personal Advocate & Liaison (PAL) 06/15/19 11/07/20 Katelyn Khan APRN RESERVATION CLERK [address] [facility] [place] [address] Assigned PCP 05/21/19 Harish Zavaleta LMFT [address] [place] [address] Assigned Behavioral Health Provider 04/23/21 05/06/21 documented as of this encounter
--- NOTE | 2023-09-30 09:15 | US_ITS ---
Patient: SABA STEWARD Facility:?[facility] RIS Patient ID:?[id number] Site Patient ID:?[id number]. Site :?[id number] Study:?US-OB Pelvis OB BPP & F/U GROWTH-09/30/2023 9:55:39 AM Ordering Physician:?MAXINE RAY CNM Final Report: INDICATION: IVF TECHNIQUE: Real time arzate scale imaging of the fetus was performed. COMPARISON: 09/03/2023 FINDINGS: Sonographic imaging demonstrates a single living intrauterine gestation. Fetus demonstrates a regular cardiac rate of 152 beats per minute. Fetus has a vertex position. The placenta lies posteriorly. Amniotic fluid volume appears upper limits of normal and there is a single deepest pocket of 8.5 cm. NANY 24.6 cm. The estimated weight is 3741gm which lies at the greater than 97th %. On the prior OB ultrasound dated 09/03/2023 the estimated weight was at the greater than 97th percentile. BPD, HC and AC greater than 97th percentile. FL 69th percentile The fetus was active and demonstrated normal breathing movements. There was normal flexion and extension of the trunk and extremities. IMPRESSION: Normal biophysical profile score 8/8. Sonographic gestational age 39 weeks 3 days and sonographic due date of 10/04/2023. Sonographic age 20 days ahead of the clinical age. Estimated weight greater than 97th percentile. BPD/HC/AC greater than 97th percentile. Amniotic fluid is upper limits of normal with NANY 24.6 cm. Dictated by Henok Correa MD @ 09/30/2023 12:15:28 PM Signed by:?Henok Correa MD @09/30/2023 12:15:28 PM (Electronic Signature)
== END 2023-09-30 08:59 | disposition home or self-care (01) ==
LOC: US 08:59
PROVIDERS: Visit Provider Advanced Practice Midwife
DX: O09.813 Supervision of pregnancy resulting from assisted reproductive technology, third trimester (principal); Z3A.39 39 weeks gestation of pregnancy
CPT/HCPCS: 76816; 76819; 87081; 87653

== ENCOUNTER 2023-10-07 12:05 | Outpatient (CLI) | payer BC, SELFPAY ==
--- NOTE | 2023-10-07 12:15 | US_ITS ---
Patient: SABA STEWARD Facility:?[facility] Patient ID:?[id number] Site Patient ID:?[id number]. Site :?1995 Study:?US-OB Pelvis OB BPP-10/07/2023 12:42:49 PM Ordering Physician:?YOSEF GONSALEZ CNM Final Report: INDICATION: Polyhydramnios COMPARISON: 09/30/2023 TECHNIQUE: Real time arzate scale imaging of the fetus was performed. Without non-stress testing. FINDINGS: Sonographic imaging demonstrates a single living intrauterine gestation. Fetus demonstrates a regular cardiac rate of 152 beats per minute. Fetus has a vertex position. Single deepest pocket amniotic fluid measurement 10.7 cm. NANY 24.98 cm. The fetus was active and demonstrated normal breathing movements. There was normal flexion and extension of the trunk and extremities. IMPRESSION: Normal biophysical profile score of 8 out of 8. Polyhydramnios. Dictated by Henok Correa MD @ 10/07/2023 6:54:19 PM Signed by:?Henok Correa MD @10/07/2023 6:54:19 PM (Electronic Signature)
== END 2023-10-07 12:06 | disposition home or self-care (01) ==
LOC: US 12:05
PROVIDERS: Visit Provider Advanced Practice Midwife
DX: O40.9XX0 Polyhydramnios, unspecified trimester, not applicable or unspecified (principal)
CPT/HCPCS: 76819

== ENCOUNTER 2023-10-16 20:24 | Inpatient (IN) | payer BC, SELFPAY ==
--- OUTSIDE RECORDS SUMMARY | 2023-10-16 20:28 | XMS_ITS | Encounter Summary ---
Author Name Unknown Organization [place] Address [facility] [place] [address] Care Team Providers Care Clamp Forklift Operator Name Role Phone Katelyn Khan APRN POWDER BLENDER Primary Care Pro vider Katelyn Khan APRN POWDER BLENDER Unavailable Encounter Details Date Type Department Care Team (Late st Contact Info) Description 02/08/2022 MyC Medical Advice M [facility] [address] [facility] [address] [facility] [address] [place] [phone] Britt Bauer, HOT MILL OBSERVER Social History Tobacco Use Types Packs/Day Years [...] than three times a week 06/12/2019 Attends Anglican Services Never 06/12 Active Member of Clubs [...] Answer Date Recorded PHQ-2 Score 1 09/15/2021 [facility] [place] of Occupat ional Health - Occupational Stress [...] Description 12/09/2023 10:00 AM CDT Office Visit [facility] [place] [address] [place] [address] Drive [address] [place] [phone] Katelyn Khan APRN POWDER BLENDER [address] [place] [address] [place] [address] documented as of this encounter Visit Diagnoses Not on filedocumented in this encounter Additional Health Concerns Assessment Noted Time PHQ-9 Depression Total Score: 3 09/16/19 22 9:16 AM CDT documented as of this encounter Care Teams Clamp Forklift Operator Relationship Specialty Start Date End Date Katelyn Khan APRN CNP [address] [place] [address] [place] [address] PCP - General Family Practice 06/12/19 Katelyn Khan, HR INTERNSHIP POWDER BLENDER [address] [facility] [place] [address] Assigned PCP 05/21/19 documented as of this encounter
--- OUTSIDE RECORDS SUMMARY | 2023-10-16 20:28 | XMS_ITS | Encounter Summary ---
Author Name Unknown Organization [place] Address [address] [place] [address]. [place] [address] Care Team Providers Care Mold Release Worker Name Role Phone Katelyn Khan APRN SURVEY PROJECT MANAGER Primary Care Pro vider Katelyn Khan APRN SURVEY PROJECT MANAGER Unavailable Reason for Visit * Reason Comments Medication Refill Encounter Details Date Type Department Care Team (Late st Contact Info) Description 02/05/2022 Refill M [facility] [place] [address] [place] [phone] Katelyn Khan APRN SURVEY PROJECT MANAGER [address] [facility] [place] [id number] Medication Refill Social History Tobacco Use Types [...] than three times a week 06/12/2019 Attends Denominational Services Never 06/12 Active Member of Clubs [...] Answer Date Recorded PHQ-2 Score 1 09/15/2021 [facility] of Occupat ional Health - Occupational [...] and update PHQ-9. Billie West RN, BSN [facility] documented in this encounter Plan of Treatment Upcoming Encounters Date Type Department Care Team (Late st Contact Info) Description 12/09/2023 10:00 AM CDT Office Visit [facility] [place] [address] [place] [address] Drive [address] [place] [phone] Katelyn Khan APRN SURVEY PROJECT MANAGER [address] [place] [address] [place] [address] documented as of this encounter Visit Diagnoses Diagnosis Moderate episode of recurrent major depressive disorder (H) Anxiety Anxiety state, unspecified Morbid obesity (H) Morbid obesity documented in this encounter Additional Health Concerns Assessment Noted Time PHQ-9 Depression Total Score: 3 09/16/19 22 9:16 AM CDT documented as of this encounter Care Teams Mold Release Worker Relationship Specialty Start Date End Date Katelyn Khan APRN SURVEY PROJECT MANAGER [address] [place] [address] [place] [address] PCP - General Family Practice 06/12/19 Katelyn Khan APRN SURVEY PROJECT MANAGER [address] [place] [address] [place] [address] Assigned PCP 05/21/19 documented as of this encounter
--- OUTSIDE RECORDS SUMMARY | 2023-10-16 20:28 | XMS_ITS | Clinical Summary ---
Author Name Unknown Organization [facility] Address [address] [facility] [place] [address] Care Team Providers Care Hollow Handle Bench Worker Name Role Phone Provider, No Primary Primary Care Provider Unava ilable Allergies Active Allergy Reactions Criticality Noted Date Comments Environmental Substances Other Low 07/04/2018 Pollen- Itchy/swollen eyes Medications Medication Sig Dispensed Refills Start Date End Date Status cetirizine (AKA: ZYRTEC) 10 mg oral Tablet Take 10 mg by mouth once daily. Active fluticasone propionate (FLONASE ALLERGY RELIEF NASL) 2 Sprays by nasal route once daily. Active oral contraceptive tablet (AKA: CONTROL TABLET) oral Tablet Take 1 tablet by mouth. Active Active Problems No known active problems [...] Comments Blood Pressure 143/92 07/04/2018 12:35 PM EMBEDDED SYSTEMS SOFTWARE ENGINEER Pulse 85 07/04/2018 12:35 PM EMBEDDED SYSTEMS SOFTWARE ENGINEER Temperature 36.7 ??C (98 ??F) 07/04/2018 12:35 PM EMBEDDED SYSTEMS SOFTWARE ENGINEER Respiratory Rate 16 07/04/2018 12:35 PM EMBEDDED SYSTEMS SOFTWARE ENGINEER Oxygen Saturation 99% 07/04/2018 12:35 PM EMBEDDED SYSTEMS SOFTWARE ENGINEER Inhaled Oxygen Concentration - - Weight 111.6 kg (246 lb) 07/04/2018 12:35 PM EMBEDDED SYSTEMS SOFTWARE ENGINEER Height - - Body Mass Index - - Plan of Treatment Not on file Care Teams Hollow Handle Bench Worker Relationship Specialty Start Date End Date Provider, [place] [address] PCP - General 06/13/18 Additional Source Comments PLEASE NOTE: Replies to this message will not be received.[facility]
--- OUTSIDE RECORDS SUMMARY | 2023-10-16 20:28 | XMS_ITS | Encounter Summary ---
Author Name Unknown Organization [place] Address [facility] [place] [address] Care Team Providers Care Director Park Name Role Phone Katelyn Khan APRN RURAL MAIL CONTRACTOR Primary Care Pro vider Juan Antonio Arteaga RN Unavailable Unav ailable Katelyn Khan APRN RURAL MAIL CONTRACTOR Unavailable Harish Zavaleta OFFICE MACHINES WIRER Unavailable Encounter Details Date Type Department Care Team (Late st Contact Info) Description 09/14/2019 MyC Medical Advice [facility] [place] [address] [facility] [address] [place] [phone] Kim Quintanilla, [...] than three times a week 06/12/2019 Attends Mandaeism Services Never 06/12 Active Member of Clubs [...] Answer Date Recorded PHQ-2 Score 1 06/12/2019 [facility] of Occupat ional Health - Occupational Stress [...] Description 12/09/2023 10:00 AM CDT Office Visit [facility] [place] [address] [place] [phone] Katelyn Khan APRN [facility] [address] [facility] [place] [address] documented as of this encounter Visit Diagnoses Not on filedocumented in this encounter Additional Health Concerns Infection Onset Date Last Indicated Resolved Time Rule Out COVID-19 01/25/2021 01/25/2021 01/25/2021 5:51 PM CDT Assessment Noted Time PHQ-9 Depression Total Score: 11 020 11:29 AM RADIO INTERFERENCE SUPERVISOR documented as of this encounter Care Teams Director Park Relationship Specialty Start Date End Date Katelyn Khan APRN RURAL MAIL CONTRACTOR [address] [facility] [place] [address] PCP - General Family Practice 06/12/19 Juan Antonio Arteaga, RN Personal Advocate & Liaison (PAL) 06/15/19 11/07/20 Katelyn Khan APRN RURAL MAIL CONTRACTOR [address] [facility] [place] [address] Assigned PCP 05/21/19 Harish Zavaleta LMFT [address] [place] [address] Assigned Behavioral Health Provider 04/23/21 05/06/21 documented as of this encounter
--- OUTSIDE RECORDS SUMMARY | 2023-10-16 20:28 | XMS_ITS | Encounter Summary ---
Author Name Unknown Organization [place] Address [facility] [place] [address] Care Team Providers Care Director Of Retail Merchandising Name Role Phone Katelyn Khan APRN [place] Primary Care Pro vider Katelyn Khan APRN [place]E Unavailable Encounter Details Date Type Department Care Team (Late st Contact Info) Description 09/17/2022 Shantanu Medical Advice M [facility] [address] [facility] [address] [place] [phone] Terri Coffey [...] points; Administer PHQ-9 if positive 0 05/09/2022 [facility] of Occupat ional Health - Occupational Stress [...] Office Visit [facility] [place] [address] [place] [address] Katelyn Khan, STATIONARY BOILER FIREMAN [place] [address] [facility] [place] [id number] documented as of this encounter Visit Diagnoses Not on filedocumented in this encounter Additional Health Concerns Assessment Noted Time PHQ-9 Depression Total Score: 3 05/09/20 22 11:23 AM STUDIO MODEL documented as of this encounter Care Teams Director Of Retail Merchandising Relationship Specialty Start Date End Date Katelyn Khan APRN [place] [address] [facility] [place] [address] PCP - General Family Practice 06/12/19 Katelyn Khan APRN [place] [address] [facility] [place] [address] Assigned PCP 05/21/19 documented as of this encounter
--- OUTSIDE RECORDS SUMMARY | 2023-10-16 20:28 | XMS_ITS | Encounter Summary ---
Author Name Unknown Organization [place] Address [facility] [place] [address] Care Team Providers Care Voip Technician Name Role Phone Katelyn Khan APRN NETWORK SECURITY ARCHITECT Primary Care Pro vider Juan Antonio Arteaga RN Unavailable Unav ailable Katelyn Khan APRN NETWORK SECURITY ARCHITECT Unavailable Harish Zavaleta [facility] Unavailable Encounter Details Date Type Department Care Team (Late st Contact Info) Description 10/02/2019 MyC Medical Advice [facility] [address] [facility] [address] [place] [phone] Daria Guevara CMA Social History [...] than three times a week 06/12/2019 Attends Latter-Day Services Never 06/12 Active Member of Clubs [...] Answer Date Recorded PHQ-2 Score 2 10/06/2019 [facility] [place] of Occupat ional Health - Occupational Stress [...] Description 12/09/2023 10:00 AM CDT Office Visit [facility] [place] [address] [place] [phone] Katelyn Khan APRN [facility] [address] [facility] [place] [address] documented as of this encounter Visit Diagnoses Not on filedocumented in this encounter Additional Health Concerns Infection Onset Date Last Indicated Resolved Time Rule Out COVID-19 01/25/2021 01/25/2021 01/25/2021 5:51 PM CDT Assessment Noted Time PHQ-9 Depression Total Score: 12 020 7:03 AM CDT documented as of this encounter Care Teams Voip Technician Relationship Specialty Start Date End Date Katelyn Khan APRN NETWORK SECURITY ARCHITECT [address] [facility] [place] [address] PCP - General Family Practice 06/12/19 Juan Antonio Arteaga, RN Personal Advocate & Liaison (PAL) 06/15/19 11/07/20 Katelyn Khan APRN NETWORK SECURITY ARCHITECT [address] [facility] [place] [address] Assigned PCP 05/21/19 Harish Zavaleta LMFT [address] [place] [address] Assigned Behavioral Health Provider 04/23/21 05/06/21 documented as of this encounter
--- OUTSIDE RECORDS SUMMARY | 2023-10-16 20:28 | XMS_ITS | Encounter Summary ---
Author Name Unknown Organization [place] Address [facility] [place] [address] Care Team Providers Care Non Destructive Testing Engineer Name Role Phone Katelyn Khan APRN CHAIN HOOKER Primary Care Pro vider Katelyn Khan APRN CHAIN HOOKER Unavailable Encounter Details Date Type Department Care Team (Late st Contact Info) Description 05/08/2022 MyC Medical Advice M [facility] [address] [facility] [address] [place] [address] Britt Bauer, MAINTENANCE SERVICE DISPATCHER Social History Tobacco Use Types Packs/Day Years [...] than three times a week 06/12/2019 Attends Sikhism Services Never 06/12 Active Member of Clubs [...] points; Administer PHQ-9 if positive 0 05/09/2022 [facility] of Occupat ional Health - Occupational Stress [...] Office Visit [facility] [place] [address] [place] [address] Drive [address] [place] [phone] Katelyn Khan APRN CHAIN HOOKER [address] [place] [address] [place] [address] documented as of this encounter Visit Diagnoses Not on filedocumented in this encounter Additional Health Concerns Assessment Noted Time PHQ-9 Depression Total Score: 3 05/09/20 22 11:23 AM METAL MOLDER documented as of this encounter Care Teams Non Destructive Testing Engineer Relationship Specialty Start Date End Date Katelyn Khan APRN CHAIN HOOKER [address] [place] [address] [place] [address] PCP - General Family Practice 06/12/19 Katelyn Khan, MARS CHAIN HOOKER [address] [facility] [place] [address] Assigned PCP 05/21/19 documented as of this encounter
--- OUTSIDE RECORDS SUMMARY | 2023-10-16 20:28 | XMS_ITS | Clinical Summary ---
Author Name Unknown Organization [place] Address [address] [place] [address] Care Team Providers Care Education Director Name Role Phone Katelyn Khan APRN WEIGHT LOSS CONSULTANT Primary Care Pro vider Kaetlyn Khan APRN WEIGHT LOSS CONSULTANT Unavailable Allergies Active Allergy Reactions Criticality Noted Date Comments Seasonal Allergies 01/25/2021 Medications Medication Sig Dispensed Refills Start Date End Date Status fluticasone (VERAMYST) 27.5 MCG/SPRAY spray Suches 2 sprays into both nostrils daily Active [...] week 10/22/2022 How often do you attend sikhism or episcopal serv ices? Never 10/22/2022 Do you belong to any clubs o r organizations such as sikhism groups, unions, fraternal or athletic groups, or [...] Answer Date Recorded PHQ-2 Score 0 10/22/2022 [facility] - Occupational Stress Questionnaire [...] Office Visit [facility] [place] [address] [place] [phone] Katelyn Khan, OPERATIONS DISPATCHER WEIGHT LOSS CONSULTANT [address] [facility] [place] [address] Health Maintenance Due Date Last Done Comments PAP 04/03/2022 04/03/2019, 02/2018, 06/11/2017 COVID-19 Vaccine ( season) 2023 10/22/2022, 06/21/2021, 09/27/2020, Additional history exists MATERNAL SCREENING DISCUSSION 03/28/2023 PHQ-9 04/24/2023 10/22/2022, 11/2021, 09/15/2021, Additional history exists OBGCT (OB) 07/04/2023 [...] Procedure Name Priority Date/Time Associated Diagnosis Comments HEPATITIS C SCREEN REFLEX TO HCV RNA QUANT AND GENOTYPE Routine 08/11/2021 8:41 AM TOBACCO FEEDER CATCHER Need for hepatitis C screening test PAP SMEAR - HIM PATIENT REPORTED Routine 04/03/2019 CL AFF RPR W/REFLEX TITER & CONFIRM Routine 10/02/2000 1:55 AM CDT Skin Sensation Disturb Abnormality Of Gait Idio Periph Neurpthy Nos REMOVE IMPACTED EAR WAX Routine 08/14/2000 1:35 PM TOBACCO FEEDER CATCHER Impacted Cerumen from Last 3 Months or Most Recently Relevant to Health Maintenance Results * Hepatitis C Screen Reflex to HCV RNA Quant and Genotype (08/11/2021 8:41 AM TOBACCO FEEDER CATCHER) Hepatitis C Antibody Nonreactive Nonreactive 08/11/2021 4:34 PM TOBACCO FEEDER CATCHER [facility]/PROT/EN DO Blood BLOOD SPECIMEN / Unknown Venipuncture / Unknown 08/11/2021 8:41 AM TOBACCO FEEDER CATCHER 08/11/2021 8:41 AM TOBACCO FEEDER CATCHER Narrative [facility] SPECIALTY CORE/PROT/ENDO - 08/11/2021 4:34 PM TOBACCO FEEDER CATCHER Assay performance characteristics have not been established for newborns, infants, and children. Katelyn Khan APRN WEIGHT LOSS CONSULTANT LAB - BLO OD ORDERABLES UM SPECIALTY CORE/PROT/ENDO [facility] Special[facility] Core/Prot/Endo [address] [facility] [address] [facility], Room [address] [phone] * PAP Smear - HIM Patient Reported (04/03/2019) PAP Smear - HIM Patient Reported Unknown EXTERNAL LAB 04/03/2019 Narrative EXTERNAL LAB - 04/03/2019 Daria Guevara CMA ??P Abstract Quality Initiatives ?? Pap smear done with MANAGER CHANNEL at DE DOMESTIC TECHNICIAN 04-03-19 Patient Reported LABORATORY EXTERNAL LAB External Lab * RPR W/REFLEX TITER & CONFIRM (10/02/2000 1:55 AM CDT) RPR Screen NON-REACTI VE NON - REACTIVE [facility] 10/01/2000 Clifford Lockett MD LABORATORY Performing Organization Address City/[facility]/ZIP Co de Phone Number [facility] from Last 3 Months or Most Recently Relevant to Health Maintenance Care Teams Education Director Relationship Specialty Start Date End Date Katelyn Khan APRN WEIGHT LOSS CONSULTANT [facility] [place] [address] PCP - General Family Practice 06/12/19 Katelyn Khan APRN WEIGHT LOSS CONSULTANT [address] [facility] [place] [address] Assigned PCP 05/21/19
--- OUTSIDE RECORDS SUMMARY | 2023-10-16 20:28 | XMS_ITS | Encounter Summary ---
Author Name Unknown Organization [place] Address [address] [place] [address]. [place] [address] Care Team Providers Care Die Caster Name Role Phone Katelyn Khan APRN CARTON MAKING MACHINIST Primary Care Pro vider Katelyn Khan APRN CARTON MAKING MACHINIST Unavailable Reason for Visit * Reason Onset Date Comments MyChart Communication 11/02/2022 Rabies tit er question Encounter Details Date Type Department Care Team (Latest Contact Info) Description 11/02/2022 Shantanu Medical Advice M [facility] [place] [address] [place] [phone] Katelyn Khan APRN [facility] [address] [facility] [place] [address] MyChart Communication (Rabies [...] week 10/22/2022 How often do you attend restorationist or advent serv ices? Never 10/22/2022 Do you belong to any clubs o r organizations such as restorationist groups, unions, fraternal or athletic groups, or [...] Answer Date Recorded PHQ-2 Score 0 10/22/2022 [facility] of Occupat ional [facility] - Occupational Stress Questionnaire Answer Date [...] place to sleep or slept in a half-way (including now)? No 10/22/2022 Education Answer Date [...] included. Per lab guide: Rabies Antibody Screen, Humans??[[id number]] Abbrev??Code: ?? RABSCN Epic Code: ?? [id number] Epic Name: ?? Rabies Antibody Screen, Humans Methodology: ?? Rapid fluorescent foci inhibition (RFFIT) Turnaround Time: ?? Specim[facility]; results are reported within 21-31 days. documented in this encounter Plan of Treatment Upcoming Encounters Date Type Department Care Team (Late st Contact Info) Description 12/09/2023 10:00 AM CDT Office Visit [facility] [place] [address] [place] [phone] Katelyn Khan APRN [facility] [address] [place] [address] [place] [phone] documented as of this encounter Visit Diagnoses Not on filedocumented in this encounter Additional Health Concerns Assessment Noted Time PHQ-9 Depression Total Score: 7 10/23/19 23 10:13 AM CDT documented as of this encounter Care Teams Die Caster Relationship Specialty Start Date End Date Katelyn Khan APRN CARTON MAKING MACHINIST [facility] [place] [address] PCP - General Family Practice 06/12/19 Katelyn Khan APRN CARTON MAKING MACHINIST [facility] [place] [address] Assigned PCP 05/21/19 documented as of this encounter
--- OUTSIDE RECORDS SUMMARY | 2023-10-16 20:28 | XMS_ITS | Referral Summary ---
Author Name Unknown Organization [facility] Address [address] [place] [address] Care Team Providers Care Inspector Quality Assurance Name Role Phone Katelyn Khan APRN DIRECTOR OF INSTRUCTION Primary Care Pro vider Katelyn Khan APRN DIRECTOR OF INSTRUCTION Unavailable Allergies Active Allergy Reactions Criticality Noted Date Comments Seasonal Allergies 01/25/2021 Medications Medication Sig Dispensed Refills Start Date End Date Status fluticasone (VERAMYST) 27.5 MCG/SPRAY spray Hood 2 sprays into both nostrils daily Active [...] week 10/22/2022 How often do you attend confucianism or muslim serv ices? Never 10/22/2022 Do you belong to any clubs o r organizations such as confucianism groups, unions, fraternal or athletic groups, or [...] Answer Date Recorded PHQ-2 Score 0 10/22/2022 [facility] - Occupational Stress Questionnaire [...] 10:00 AM CDT Office Visit [facility] [address] [facility] [address] [place] [address] Katelyn Khan, X RAY EQUIPMENT TESTER DIRECTOR OF INSTRUCTION [address] [address] Procedures Procedure Name Priority Date/Time Associated Diagnosis Comments HEPATITIS C SCREEN REFLEX TO HCV RNA QUANT AND GENOTYPE Routine 08/11/2021 8:41 AM BUSINESS MANAGEMENT MANAGER Need for hepatitis C screening test PAP SMEAR - HIM PATIENT REPORTED Routine 04/03/2019 CL AFF RPR W/REFLEX TITER & CONFIRM Routine 10/02/2000 1:55 AM CDT Skin Sensation Disturb Abnormality Of Gait Idio Periph Neurpthy Nos REMOVE IMPACTED EAR WAX Routine 08/14/2000 1:35 PM BUSINESS MANAGEMENT MANAGER Impacted Cerumen from Last 3 Months or Most Recently Relevant to Health Maintenance Results * Hepatitis C Screen Reflex to HCV RNA Quant and Genotype (08/11/2021 8:41 AM BUSINESS MANAGEMENT MANAGER) Hepatitis C Antibody Nonreactive Nonreactive 08/11/2021 4:34 PM BUSINESS MANAGEMENT MANAGER [facility] DO Blood BLOOD SPECIMEN / Unknown Venipuncture / Unknown 08/11/2021 8:41 AM BUSINESS MANAGEMENT MANAGER 08/11/2021 8:41 AM BUSINESS MANAGEMENT MANAGER Narrative [facility]ENDO - 08/11/2021 4:34 PM BUSINESS MANAGEMENT MANAGER Assay performance characteristics have not been established for newborns, infants, and children. Katelyn Khan APRN DIRECTOR OF INSTRUCTION LAB - BLO OD ORDERABLES [facility]ENDO [facility]Endo [address] Building, Room 3-[address] [phone] * PAP Smear - HIM Patient Reported (04/03/2019) PAP Smear - HIM Patient Reported Unknown EXTERNAL LAB 04/03/2019 Narrative EXTERNAL LAB - 04/03/2019 Daria Guevara CMA ??P Abstract Quality Initiatives ?? Pap smear done with [facility] at [place] [facility] 04-03-19 Patient Reported LABORATORY EXTERNAL LAB External Lab * RPR W/REFLEX TITER & CONFIRM (10/02/2000 1:55 AM CDT) RPR Screen NON-REACTI VE NON - REACTIVE [facility] 10/01/2000 Clifford Lockett MD LABORATORY [facility] from Last 3 Months or Most Recently Relevant to Health Maintenance Care Teams Inspector Quality Assurance Relationship Specialty Start Date End Date Katelyn Khan APRN DIRECTOR OF INSTRUCTION [facility] [facility] [place] [address] PCP - General Family Practice 06/12/19 Katelyn Khan APRN DIRECTOR OF INSTRUCTION [facility] [facility] [place] [address] Assigned PCP 05/21/19
--- OUTSIDE RECORDS SUMMARY | 2023-10-16 20:28 | XMS_ITS | Referral Summary ---
Author Name Unknown Organization [facility] Address [address] [place] [address] Care Team Providers Care Technical Training Coordinator Name Role Phone Provider, No Primary Primary [...] Comments Blood Pressure 143/92 07/04/2018 12:35 PM FUR TANNER Pulse 85 07/04/2018 12:35 PM FUR TANNER Temperature 36.7 ??C (98 ??F) 07/04/2018 12:35 PM FUR TANNER Respiratory Rate 16 07/04/2018 12:35 PM FUR TANNER Oxygen Saturation 99% 07/04/2018 12:35 PM FUR TANNER Inhaled Oxygen Concentration - - Weight 111.6 kg (246 lb) 07/04/2018 12:35 PM FUR TANNER Height - - Body Mass Index - - Functional Status Functional Status Response Date of Assess ment Are you deaf or do you have serious difficulty h earing? No 07/04/2018 Are you blind or do you have serious difficulty seeing, even when wearing glasses? No 07/04/2018 Do you have serious difficul ty walking or climbing stairs? No 07/04/2018 Do you have difficulty dressing or bathing? No 07/04/2018 Do you have difficulty doing errands alone such as visiting a doctor's office or shopping because of a physical, mental, or emotional condition? No 07/04/2018 Cognitive Status Response Date of Assessm ent Do you have trouble concentr ating, remembering, or making decisions because of a physical, mental, or emotional condition? No 07/04/2018 Plan of Treatment Not on file Care Teams Technical Training Coordinator Relationship Specialty Start Date End Date Provider, [place] [address] PCP - General 06/13/18 Additional Source Comments PLEASE NOTE: Replies to this message will not be received.[facility]
--- OUTSIDE RECORDS SUMMARY | 2023-10-16 20:28 | XMS_ITS | Encounter Summary ---
Author Name Unknown Organization [place] Address [facility] [place] [address] Care Team Providers Care Materials Planning Analyst Name Role Phone Katelyn Khan APRN BASEBALL GLOVE SHAPER Primary Care Pro vider Juan Antonio Arteaga RN Unavailable Unav ailable Katelyn Khan APRN BASEBALL GLOVE SHAPER Unavailable Harish Zavaleta CERAMIC TILE SETTER Unavailable Encounter Details Date Type Department Care Team (Late st Contact Info) Description 09/14/2019 MyC Medical Advice [facility] [place] [address] [facility] [address] [facility] [address] [place] [phone] Kim [...] than three times a week 06/12/2019 Attends Spiritism Services Never 06/12 Active Member of Clubs [...] Answer Date Recorded PHQ-2 Score 1 06/12/2019 [facility] [place] of Occupat ional Health - Occupational Stress [...] 12/09/2023 10:00 AM CDT Office Visit [facility] [place] [address] [place] [address] Katelyn Khan APRN [facility] [address] [facility] [place] [address] documented as of this encounter Visit Diagnoses Not on filedocumented in this encounter Additional Health Concerns Infection Onset Date Last Indicated Resolved Time Rule Out COVID-19 01/25/2021 01/25/2021 01/25/2021 5:51 PM CDT Assessment Noted Time PHQ-9 Depression Total Score: 11 020 11:29 AM STOCK ROOM MANAGER documented as of this encounter Care Teams Materials Planning Analyst Relationship Specialty Start Date End Date Katelyn Khan APRN BASEBALL GLOVE SHAPER [address] [facility] [place] [address] PCP - General Family Practice 06/12/19 Juan Antonio Arteaga, RN Personal Advocate & Liaison (PAL) 06/15/19 11/07/20 Katelyn Khan APRN BASEBALL GLOVE SHAPER [address] [facility] [place] [address] Assigned PCP 05/21/19 Harsih Zavaleta LMFT [address] [place] [address] Assigned Behavioral Health Provider 04/23/21 05/06/21 documented as of this encounter
--- OUTSIDE RECORDS SUMMARY | 2023-10-16 20:28 | XMS_ITS | Encounter Summary ---
Author Name Unknown Organization [facility] Address [address] [place] [address]. [place] [address] Care Team Providers Care Manager Call Center Name Role Phone Katelyn Khan APRN PURCHASING SPECIALIST Primary Care Pro vider Katelyn Khan APRN PURCHASING SPECIALIST Unavailable Encounter Details Date Type Department Care Team (Late st Contact Info) Description 04/16/2023 [facility] Medical Advice [facility] [address] [facility] [address] [place] [phone] Ema [...] week 10/22/2022 How often do you attend catholic or congregation serv ices? Never 10/22/2022 Do you belong to any clubs o r organizations such as catholic groups, unions, fraternal or athletic groups, or [...] place to sleep or slept in a halfway (including now)? No 10/22/2022 Adolescent Education Answer [...] Description 12/09/2023 10:00 AM CDT Office Visit [facility] [place] [address] [place] [address] Drive [address] [place] [phone] Katelyn Khan APRN PURCHASING SPECIALIST [address] [place] [address] [place] [address] documented as of this encounter Visit Diagnoses Not on filedocumented in this encounter Additional Health Concerns Assessment Noted Time PHQ-9 Depression Total Score: 7 10/23/19 23 10:13 AM CDT documented as of this encounter Care Teams Manager Call Center Relationship Specialty Start Date End Date Katelyn Khan APRN PURCHASING SPECIALIST [address] [place] [address] [place] [address] PCP - General Family Practice 06/12/19 Katelyn Khan APRN PURCHASING SPECIALIST [address] [place] [address] [place] [address] Assigned PCP 05/21/19 documented as of this encounter
--- OUTSIDE RECORDS SUMMARY | 2023-10-16 20:29 | XMS_ITS | Encounter Summary ---
Author Name Unknown Organization [facility] Address [address] [place] [address] Care Team Providers Care Network Communications Engineer Name Role Phone Katelyn Khan APRN CONTACT ACID PLANT OPERATOR Primary Care Pro vider Juan Antonio Arteaga RN Unavailable Unav ailable Katelyn Khan APRN [facility] Unavailable Harish Zavaleta [facility] Unavailable Encounter Details Date Type Department Care [...] than three times a week 06/12/2019 Attends Restorationist Services Never 06/12 Active Member of Clubs [...] Answer Date Recorded PHQ-2 Score 1 06/12/2019 [facility] of Occupat ional Health - Occupational Stress [...] 12/09/2023 10:00 AM CDT Office Visit [facility] [place] [address] [facility] [address] [place] [phone] Katelyn Khan APRN CONTACT ACID PLANT OPERATOR [address] [place] [address] [place] [address] documented as of this encounter Visit Diagnoses Not on filedocumented in this encounter Additional Health Concerns Infection Onset Date Last Indicated Resolved Time Rule Out COVID-19 01/25/2021 01/25/2021 01/25/2021 5:51 PM CDT Assessment Noted Time PHQ-9 Depression Total Score: 11 020 11:29 AM UNDERGROUND HEAVY EQUIPMENT OPERATOR documented as of this encounter Care Teams Network Communications Engineer Relationship Specialty Start Date End Date Katelyn Khan, WATCH ENGINE OPERATOR CONTACT ACID PLANT OPERATOR [address] [facility] [place] [address] PCP - General Family Practice 06/12/19 Juan Antonio Arteaga, RN Personal Advocate & Liaison (PAL) 06/15/19 11/07/20 Katelyn Khan, WATCH ENGINE OPERATOR CONTACT ACID PLANT OPERATOR [address] [facility] [place] [address] Assigned PCP 05/21/19 Harish Zavaleta LMFT [address] [place] [address] [address] [place] [address] Assigned Behavioral Health Provider 04/23/21 05/06/21 documented as of this encounter
--- OUTSIDE RECORDS SUMMARY | 2023-10-16 20:29 | XMS_ITS | Encounter Summary ---
Author Name Unknown Organization [facility] Address [address] [place] [address]. [place] [address] Care Team Providers Care Field Kiln Burner Name Role Phone Katelyn Khan APRN BREAKDOWN WORKER Primary Care Pro vider Juan Antonio Arteaga RN Unavailable Unav ailable Katelyn Khan APRN BREAKDOWN WORKER Unavailable Harish Zavaleta [facility] Unavailable Encounter Details Date Type Department Care Team (Late st Contact Info) Description 06/25/2019 MyC Medical Advice [facility] [place] [address] [place] [phone] Katelyn Khan APRN [facility] [address] [facility] [place] [address] Social History Tobacco Use [...] than three times a week 06/12/2019 Attends Holiness Services Never 06/12 Active Member of Clubs [...] Answer Date Recorded PHQ-2 Score 1 06/12/2019 [facility] [place] of Occupat ional Health - Occupational Stress [...] Notes * Telephone Encounter - Juan Antonio Artegaa RN - 06/26/2019 7:47 AM CHANNEL SALES DIRECTOR Sent pt a [employer] message. - Jose Arteaga RN - Patient Advocate Liason (PAL) [facility] NEL SALES DIRECTOR documented in this encounter Plan of Treatment Upcoming Encounters Date Type Department Care Team (Late st Contact Info) Description 12/09/2023 10:00 AM CDT Office Visit [facility] [address] [place] [address] Katelyn Khan APRN BREAKDOWN WORKER [address] [place] [address] [place] [address] documented as of this encounter Visit Diagnoses Not on filedocumented in this encounter Additional Health Concerns Infection Onset Date Last Indicated Resolved Time Rule Out COVID-19 01/25/2021 01/25/2021 01/25/2021 5:51 PM CDT Assessment Noted Time PHQ-9 Depression Total Score: 11 020 11:29 AM CHANNEL SALES DIRECTOR documented as of this encounter Care Teams Field Kiln Burner Relationship Specialty Start Date End Date Katelyn Khan APRN BREAKDOWN WORKER [address] [place] [address] [place] [address] PCP - General Family Practice 06/12/19 Juan Antonio Arteaga, RN Personal Advocate & Liaison (PAL) 06/15/19 11/07/20 Katelyn Khan APRN BREAKDOWN WORKER [address] [place] [address] [place] [address] Assigned PCP 05/21/19 Harish Zavaleta LMFT [address] [place] [address] Assigned Behavioral Health Provider 04/23/21 05/06/21 documented as of this encounter
[2023-10-16 20:41] VITALS: PULSE 94; O2SAT 97
[2023-10-16 20:43] VITALS: BP 127/85; PULSE 101; TEMP 36.5
[2023-10-16 20:58] VITALS: BMI 97.7
--- NOTE | 2023-10-16 21:47 | P.LDBA_ITS ---
Subjective History of Present Illness Time Seen by Provider: 21:00 Date Seen: 10/16/23 Narrative: Patient is being admitted to Labor and Delivery for IOL for polyhydramnios, IVF , and suspected macrosomia. She is a 27 year old at 38.6 weeks gestation. Her full history and physical was dictated by Mary Feliz CNM on 10/07/23. Please see this for details. Her cervical exam at this time was unchanged from her recent clinic exam. We discussed in detail options for induction and risks and benefits of each including Pitocin, Cytotec (vaginal vs buccal), Cervidil, and cook catheter. Discussed that a cook catheter would be difficult due to anterior position of her cervix. She would like to proceed with vaginal Cytotec. Encouraged Vistaril and to consider morphine if needed for sleep overnight. Will plan at this time to move to Pitocin after Cytotec. Specific Issues/Plans H&P done by RENU Salazar on 10/07/2023 # Polyhydramnios, NANY 24.6 at 36.4wks BPP weekly Delivery at 39.0 - 39 6/7 weeks: IOL scheduled for cervical ripening 10/16/23 @2000 # Suspected macrosomia. EFW >97%, 8lbs 4oz, and measuring at 39.3wks at 36.4wks At 32.5 wks EFW >97%, 6lb 3oz, and measuring at 36.2wks Discussed increased risk of shoulder dystocia Consulted NDP and did not recommend delivery before 39wks # IVF , maternal egg/donor sperm Completed pre implantation genetics IVF transfer date: 02/05/2023 NEREIDA wants to use LUIS ALBERTO of 10/24/2023 as the embryo was 5 days old at time of transfer. Correlates with two first trimeter ultrasounds Low dose aspirin @ 12weeks to delivery Level 2 ultrasound, echo and MFM consult:Level II completed, suboptimal views of cardiac f/u 07/02 07/02 echo no obvious cardiac anomalies seen. Growth ultrasound 32 weeks: BPD >97%, HC >97%, AC >97%, FL 92.4%. EFW >97%, 2811g Repeat growth ultrasound with BPP at 36 weeks: ordered Weekly testing starting at 36 weeks: switched to BPPs # Obesity, BMI 39.2 Hemoglobin A1c: 5.1 Doing weekly NST due to IVF # Depression, bupropion 150 mg # Hx migraine with aura OB - Problem Based A/P Additional Plan (1) Encounter for induction of labor: Status: Acute (2) Polyhydramnios in third trimester: Status: Acute (3) macrosomia: Status: Acute (4) Obesity (BMI 30-39.9): Status: Acute (5) conceived through in vitro fertilization: Problem details: frozen embryo transfer 02/05/23 Status: Acute Plan ASSESSMENT:? at 38.6 weeks gestation? GBS negative? complicated by: IVF conception, mild polyhydramnios, suspected macrosomia (>97%), and obesity? Medical IOL? ?? PLAN:? 1. Reviewed risks and benefits of IOL with Pitocin vs Cytotec vs Cervidil. Pt prefers Cytotec. Pitocin to follow if needed.? 2. Desires water . Consent signed. Hep C negative.? 3. Candidate for analgesia of choice. Planning unmedicated .? 4. Anticipate ? 5. IV placement not indicated at this time but will consider if patient condition changes or at active phase of labor. 6. Monitoring per Cytotec policy. Delivery/Labor/Induction Plan Plan: induction Induction method: per misoprostol protocol OB Result Labs Blood Type: A (+) positive GBS Status: negative OB Exam Physical Exam Vital signs: Temp Pulse BP Pulse Ox 97.7 F 101 H 127/85 97 10/16/23 20:43 10/16/23 20:43 10/16/23 20:43 10/16/23 20:41 Narrative: Psychiatric:? Alert and oriented x3? HEENT:? Normocephalic, atraumatic? Neck:? Supple without adenopathy or thyromegaly? Lungs:? Clear to auscultation bilaterally? Heart:? Regular rate and rhythm, no murmur, rub or gallop? Abdomen:? Soft, nontender, and gravid? Extremities:? No edema or erythema? Detailed Labor and Delivery Exam Patient Gravid: Yes Dilation (cm): 1 Effacement (%): 60 Cervix position: posterior Consistency: medium Contraction Frequency: none Fetus (Single) Amniotic Membrane Status: intact Heart Rate Baseline: 145 Monitor Accelerations: Present Monitor Decelerations: None Software Developer Manager Variability: Moderate (6-25)
[2023-10-16 23:19] VITALS: BP 119/83; PULSE 70; TEMP 36.6
[2023-10-16] MEDS: miSOPROStoL 25 MCG/0.25 TABLET VAGINAL (23:26)
[2023-10-17] VITALS (15 sets, daily range): BP systolic 113–146; BP diastolic 63–102; PULSE 53–73; RESP 16–18; TEMP 36.5–36.9
[2023-10-17] MEDS: miSOPROStoL 25 MCG/0.25 TABLET VAGINAL ×3 (02:47→09:06)
[2023-10-17] MEDS: SODIUM CHLORIDE 0.9 % (FLUSH) 10 ML SYRINGE IVF ×2 (06:13→21:38)
--- NOTE | 2023-10-17 07:37 | PM.OBPNL ---
Subjective Date Seen: 10/17/23 Narrative: ?Elva is coping well with labor pain/contractions, she denies pain at this time. Reports some cramping after Cytotec dose then is comfortable again. ?Her is with her for support. she is due for another dose of Cytotec around 0900. ? Objective Exam: VSS, afebrile General Appearance:? Calm, cooperative. ?No acute distress. ? Psychiatric Exam: Alert and oriented, appropriate affect Abdomen: Gravid Ctx: ?Q 2-3 min apart. ?Mild ? ? FHTs: ?Baseline: 135. ? ? Variability: moderate. ?Accels: +. ? ?Decels: ?variables. SVE: deferred Membranes: Intact ? Vital Signs: Last Vital Signs Temp 97.9 F 10/17/23 05:57 Pulse 60 10/17/23 05:57 Resp 16 10/17/23 05:57 BP 119/81 10/17/23 05:57 Pulse Ox 97 10/16/23 20:41 Assessment Heart Rate Baseline: 145 Monitor Accelerations: Present Monitor Decelerations: None Plan Plan: Assessment:?? at 39.0 wks gestation?? GBS neg Patient is coping well with challenges of labor.?? Labor type: Induced, Early labor? Category 2 FHR pattern.? complicated by: IVF conception, mild polyhydramnios, suspected macrosomia (>97%), and obesity? Medical IOL? Labor complicated by: NA? Plan:?? Continue with Cytotec as ordered, routine monitoring per protocol. Pitocin to follow as needed Continue with routine intrapartum cares as ordered.?? Patient encouraged to move and change positions to promote physiologic labor and .?? Nonpharmacologic comfort measures per patient preference. Candidate for analgesia of choice if desired. Patient planning waterbirth, will move to waterbirth room when more active Anticipate progress to NVD. ?
[2023-10-17 07:46] LABS: Basophils Percent Auto 0.2 % (0.0-3.0); Eosinophils Percent Auto 0.4 % (0.0-7.0); Hematocrit 38.2 % (33.0-51.0); Immature Granulocytes Pct Auto 0.3 %; Lymphocytes Percent Auto 17.4 % (20-44); Mean Corpuscular HGB Conc 34 gm/dL (32-36); Mean Corpuscular Hemoglobin 28 pg (26-34); Mean Corpuscular Volume 82 fL (80-100); Monocytes Percent Auto 4.2 % (0.0-11.0); Neutrophils Percent Auto 77.5 % (42.0-72.0); Platelet Count* 197 K/uL (140-440); RDW Coefficient of Variation % 13.1 % (11.5-15.5); Red Blood Count 4.64 m/uL (4.00-5.20); White Blood Count* 12.96 K/uL (4.50-11.00)
[2023-10-17 07:51] LABS: Slide Review Reflex No
[2023-10-17] MEDS: buPROPion HCL SR 150 MG TAB PO (09:05)
--- NOTE | 2023-10-17 12:42 | PM.OBPNL ---
Subjective Time Seen by Provider: 12:30 Date Seen: 10/17/23 Narrative: ?Elva is coping well with labor pain/contractions she feels contractions have increased somewhat with last dose of Cytotec. ?Familia is with her for support. ?Cervical exam was changed since last nights admission and since she is feeling more contractions discussed waiting to see if things progress and adding Pitocin later if needed. She is agreeable to this plan. ? Objective Exam: VSS, afebrile General Appearance:? Calm, cooperative. ?No acute distress. ? Psychiatric Exam: Alert and oriented, appropriate affect Abdomen: Gravid Ctx: ?Q 1-5 min apart. ?Mild ? ? FHTs: ?Baseline: 150. ? ? Variability: moderate. ?Accels: +. ? ?Decels: ?occasional variable. SVE: 3.5/50/-2 Membranes: Intact ? Vital Signs: Last Vital Signs Temp 98.5 F 10/17/23 10:11 Pulse 73 10/17/23 10:10 Resp 18 10/17/23 10:11 BP 116/63 10/17/23 10:10 Pulse Ox 97 10/16/23 20:41 Assessment Heart Rate Baseline: 145 Monitor Accelerations: Present Monitor Decelerations: None Plan Plan: Assessment:?? at 39.0 weeks gestation?? GBS neg Patient is coping well with challenges of labor.?? Labor type: Induced, Early labor? Category 2 FHR pattern.? complicated by: complicated by: IVF conception, mild polyhydramnios, suspected macrosomia (>97%), and obesity? Medical IOL? ?? PLAN:? 1. Monitor for progressing labor, hold additional doses of Cytotec now. Consider Pitocin per protocol as needed. 2. Desires water . Consent signed. Hep C negative.? 3. Candidate for analgesia of choice. Planning unmedicated .? 4. Anticipate ? 5. IV placement not indicated at this time but will consider if patient condition changes or at active phase of labor. 6. Monitoring per Cytotec or Pitocin if used policy.
[2023-10-17] MEDS: OXYTOCIN 30 unit/500 ML in NS 30 UNIT/500 ML BAG IVPB (15:10)
[2023-10-17] MEDS: LACTATED RINGERS 1000 ML 1,000 ML 125 ML IV ×2 (15:10→22:56)
[2023-10-17] MEDS: OXYTOCIN 30 unit/500 ML in NS 30 UNIT/500 ML BAG 7 UNIT IVPB (19:19)
--- NOTE | 2023-10-17 20:13 | PM.OBPNL ---
Subjective Date Seen: 10/17/23 Narrative: ?Elva is coping well with labor pain/contractions. ?Her family is with her for support. ?She would like to continue with rest and relaxation for comfort and pain management. She denies strong contractions states she mostly feels some cramping. She has continued to make cervical change and baby is not ballotable. Discussed AROM now as baby is lower and well applied. R/B/A reviewed and patient was agreeable to this plan. She did have a few elevated blood pressures with diastolic in the 90's. Monitoring per protocol now resolved. No need for change in the plan. Objective Exam: VSS, afebrile General Appearance:? Calm, cooperative. ?No acute distress. ? Psychiatric Exam: Alert and oriented, appropriate affect Abdomen: Gravid Ctx: ?Q 2-3 min apart. ? ?Moderate ? FHTs: ?Baseline: 150. ? ? Variability: moderate. ?Accels: +. ? ?Decels: ?occasional variable. SVE: 5/50/-1 Membranes: ?AROM clear fluid Vital Signs: Last Vital Signs Temp 98.1 F 10/17/23 20:04 Pulse 62 10/17/23 19:45 Resp 17 10/17/23 17:19 BP 115/80 10/17/23 19:45 Pulse Ox 97 10/16/23 20:41 Assessment Amniotic Membrane Status: AROM Plan Plan: Assessment:?? at 39.0 weeks gestation?? GBS negative Patient is coping well with challenges of labor.?? Labor type: Induced, early labor? Category 2 FHR pattern.? complicated by: IVF conception, mild polyhydramnios, suspected macrosomia (>97%), and obesity? Medical IOL? Plan:?? Continue with IV Pitocin per protocol Monitor BP closely for elevation, consider preeclampsia labs if continued elevation seen. Continue with routine intrapartum cares as ordered.?? Patient encouraged to move and change positions to promote physiologic labor and .?? Nonpharmacologic comfort measures per patient preference. Candidate for analgesia of choice if desired. Patient planning waterbirth, will move to tub room when more active as desired. Anticipate progress to NVD. ?
[2023-10-17] MEDS: ONDANSETRON 2 MG/ML inj 4 MG IV (21:37)
--- NOTE | 2023-10-17 22:22 | PM.OBPNL ---
Subjective Date Seen: 10/17/23 Narrative: ?Elva is coping well with labor pain/contractions. ? She now feeling her contractions and breathing through them.?She would like to continue with repositioning and relaxation for comfort and pain management.?Would like to move to the waterbirth room soon. She was sitting at the bedside on the birthing ball when I entered the room to evaluate her. Continues to leak clear fluid. IV Pitocin is infusing per protocol. Objective Exam: VSS, afebrile General Appearance:? Calm, cooperative. ?No acute distress. ? Psychiatric Exam: Alert and oriented, appropriate affect Abdomen: Gravid Ctx: ?Q 1-3 min apart. ? ? ?Strong FHTs: ?Baseline: 145. ? ? Variability: moderate. ?Accels: +. ? ?Decels: ?-. SVE: 6/100/-1 Membranes: ?AROM X 2.5 hours Vital Signs: Last Vital Signs Temp 97.7 F 10/17/23 22:00 Pulse 53 L 10/17/23 22:15 Resp 18 10/17/23 21:05 BP 146/95 H 10/17/23 22:15 Pulse Ox 97 10/16/23 20:41 Contractions Pitocin Rate (mU/min): 9 Assessment Assessment: induction ongoing Station: -1 Amniotic Membrane Status: AROM Status: Category l Heart Rate Baseline: 145 Microarray Operations Vice President Variability: Moderate (6-25) Monitor Accelerations: Present Monitor Decelerations: None Plan Plan: Assessment:?? at 39.0 weeks gestation?? GBS negative Patient is coping well with challenges of labor.?? Labor type: Induced, Active labor? Category 1 FHR pattern.? complicated by: complicated by: IVF conception, mild polyhydramnios, suspected macrosomia (>97%), and obesity? Medical IOL? Plan:?? Continue with IV Pitocin per protocol Monitor BP closely for elevation, she has now had 2 elevated BP's >4 hr apart. Plan to get preeclampsia labs. Meets criteria for gestational hypertension at this time. Continue with routine intrapartum cares as ordered.?? Patient encouraged to move and change positions to promote physiologic labor and .?? Nonpharmacologic comfort measures per patient preference. Candidate for analgesia of choice if desired. Patient planning waterbirth, move to waterbirth room shortly. Anticipate progress to NVD. ?
[2023-10-17 23:06] LABS: Hematocrit 39.1 % (33.0-51.0); Hemoglobin* 13.5 gm/dL (12.0-16.0); Mean Corpuscular HGB Conc 35 gm/dL (32-36); Mean Corpuscular Hemoglobin 28 pg (26-34); Mean Corpuscular Volume 82 fL (80-100); Platelet Count* 219 K/uL (140-440); Red Blood Count 4.79 m/uL (4.00-5.20); White Blood Count* 15.51 K/uL (4.50-11.00)
[2023-10-17 23:12] LABS: Alanine Aminotransferase* 21 U/L (4-35); Aspartate Amino Transferase* 33 U/L (12-35); Creatinine* 0.6 mg/dL (0.5-1.5); Est. Creatinine Clearance* 142.07; Estimated Glomerular Filt Rate 126 ml/min; Slide Review Reflex No
[2023-10-18] VITALS (15 sets, daily range): BP systolic 104–137; BP diastolic 62–88; PULSE 56–96; RESP 16–20; TEMP 36.6–36.8; O2SAT 95–97
[2023-10-18] MEDS: miSOPROStoL 800 MCG/4 TABLET PR (01:20)
[2023-10-18] MEDS: LIDOCAINE 1 % PF 30 ML INJECTION (01:21)
[2023-10-18] MEDS: METHYLERGONOVINE MALEATE 0.2 MG/ML INJ IM (02:06)
[2023-10-18] MEDS: OXYTOCIN 30 unit/500 ML in NS 30 UNIT/500 ML BAG 300 UNIT IVPB (02:07)
[2023-10-18] MEDS: fentaNYL 100 MCG/2 ML inj IVP (02:23)
[2023-10-18] MEDS: TRANEXAMIC ACID 100 MG/ML INJ 1000 MG IV (03:08)
--- NOTE | 2023-10-18 03:23 | W.PM.VAGDE_ITS ---
OB Procedure Vag Delivery Mother Details Mother Details: The patient is a 27 year-old, 1, Para 0, admitted on 10/16/23 at 39.1 Days gestation. : 1 Para: 1 Weeks Gestation: 39.1 Admission Date: 10/16/23 Additional Details Amniotic Membrane Status: AROM Amniotic Membrane Rupture Date: 10/17/23 Amniotic Membrane Rupture Time: 20:04 Amniotic Membrane Fluid Description: Clear Analgesia/Anesthesia Type: None Waterbirth: Yes Pitcoin: Yes Intrapartal Events: Labor Induction Induction Method: per misoprostol protocol and per pitocin protocol Delivery augmentation: rupture of membranes Labor Onset: 20:10 Complete: 00:20 Pushin:20 Heart: heart tones during second stage were continuously monitored. Reassuring with moderate variability, variable decelerations with contractions with quick return to baseline. Delivery Details Delivery Date: 10/18/23 Delivery Time: 01:01 Route of delivery: Gender: Female Infant Viability: Alive; Heart Rate Present Position at Delivery: OA Delivery Details: 27?y.o?at 39.1 weeks.? Elva was admitted for cervical ripening and ?induction of labor for polyhydramnios, IVF , and suspected macrosomia. She was given Cytotec, IV Pitocin and had AROM for labor induction methods. Once she was uncomfortable and making cervical change she was moved to the waterbirth room and shortly after entered the tub. She pushed effectively and delivered a female infant in hands and knees position. ? She became complete at 0020.??She pushed in hands and knees and semi fowlers positions effectively.? Spontaneous vaginal delivery at 0101 of?a viable? female infant.??Delivered in vertex OA position.??Shoulders delivered easily.? Spontaneous cry noted.??Infant placed on maternal abdomen.??Cord?was clamped and cut after a 5+ minute delay.??Nose and mouth were bulb suctioned.? Shoulder dystocia: no? Nuchal cord: no? Meconium stained?fluid: no? Water : yes? ? ? 8 at 1 minute and 9 at 5 minutes.? Weight is 8lbs 12 oz. ? Placenta delivered spontaneously and?complete?at 0114 with a?3 vessel?cord.?? Bleeding controlled with fundal massage and?Pitocin, Cytotec, and Methergine for continued trickling bleeding. A manual sweep of the vagina was done after IV Fentanyl was given and large clots were expressed. After repair was completed she continued to have additional trickling so TXA was given and bladder was straight cathed. Close monitoring continues of bleeding, appears to be minimal at this time. ? Mother and were stable after delivery.? ? Lacerations:? 2nd degree with left labial extension times two repaired with 3- 0?vicryl.??right labial laceration, not repaired. One figure eight placed on right labial laceration for brisk bleeding at site. Adequate hemostasis was achieved with this. ? Bleeding?post delivery?was: moderate. ?The fundus was firm to palpation.? Blood loss: 1350?mL.? Blood loss measurement type: 950 QBL? 450 EBL?in tub ? Sponge,?lap?and needles counts are correct.? Mother and were stable after delivery.? 1 Minute Interval Total Score: 8 5 Minute Interval Total Score: 9 Additional Details Shoulder Dystocia: No Placenta Delivery Time: 01:14 Placental Delivery Description: Spontaneous Delivery repair: Vicryl Procedure Done: Global Blood Loss: 1,350 Laceration: Perineal - 2nd Degree (and right labial) Blood Loss Measurement Type: QBL Bakri Used: No Sponge/Need Count Correct: Yes Cord Vessel Description: 3 Vessels Event Summary Status: Mother and infant were stable after delivery. Disposition: floor
[2023-10-18] MEDS: BENZOCAINE/MENTHOL SPRAY 85 GM AEROSOL 1 APPLIC TOPICAL (05:07)
[2023-10-18] MEDS: IBUPROFEN 600 MG TABLET PO ×3 (05:07→16:58)
[2023-10-18 07:14] LABS: Hemoglobin* 12.3 gm/dL (12.0-16.0)
[2023-10-18] MEDS: buPROPion HCL SR 150 MG TAB PO (08:15)
[2023-10-18] MEDS: DOCUSATE SODIUM 100 MG CAPSULE PO (08:15)
[2023-10-18] MEDS: ACETAMINOPHEN 500 MG TABLET 1000 MG PO ×3 (08:15→21:19)
[2023-10-19 00:30] VITALS: BP 102/69; PULSE 75; RESP 15; TEMP 36.6; O2SAT 98
[2023-10-19 04:30] VITALS: BP 108/76; PULSE 79; RESP 16; TEMP 36.7; O2SAT 97
[2023-10-19 06:54] LABS: Hemoglobin* 9.7 gm/dL (12.0-16.0)
--- NOTE | 2023-10-19 08:13 | PM.OBDSVD1 ---
DS: Providers Provider Date Seen: 10/19/23 Date of admission: 10/16/23 20:24 Primary care physician: Not a Local Provider Admitting Clinician: Jed Portillo CNM Attending Physician on discharge: Jed Portillo CNM Date of Discharge: 10/19/23 DS: Diagnosis Discharge Diagnosis (1) care and examination of lactating mother: Status: Acute (2) conceived through in vitro fertilization: Status: Acute Problem details: frozen embryo transfer 02/05/23 (3) Polyhydramnios in third trimester: Status: Acute (4) Encounter for induction of labor: Status: Acute (5) macrosomia: Status: Acute (6) Depression: Status: Acute Exam Const: Vital Signs, click to edit/add: Vital Signs - 24 hr 10/18/23 11:52 10/18/23 17:03 10/18/23 19:52 Temperature 98.0 F 97.8 F 98.0 F Pulse Rate [Pulse Oximeter] 61 61 80 Respiratory Rate 16 16 16 Blood Pressure [Ri ght Arm] 107/72 104/68 119/75 Pulse Oximetry 95 97 97 Oxygen Delivery Me thod Room Air Room Air Room Air 10/19/23 00:30 10/19/23 04:30 Temperature 97.9 F 98.0 F Pulse Rate [Pulse Oximeter] 75 79 Respiratory Rate 15 16 Blood Pressure [Ri ght Arm] 102/69 108/76 Pulse Oximetry 98 97 Oxygen Delivery Me thod Room Air Room Air Documenting provider has reviewed patient's vital signs: yes Common normals: no apparent distress General appearance: cooperative and comfortable Orientation/consciousness: Yes awake HENMT: Common normals: normocephalic Head and scalp: normocephalic Resp: Common normals: normal respiratory effort, no retractions and clear to auscultation bilaterally Auscultation: clear to auscultation bilaterally Cardio: Common normals: regular rate, regular rhythm, S1 normal heart sound and S2 normal heart sound Rate: regular rate Rhythm: regular rhythm Heart sounds: S1 normal and S2 normal : External Female Exam: external laceration (intact with mild edema, no erythema) Uterus: U/2 Lochia: scant Neuro: Sensorium/orientation: awake Psych: Common normals: mental status grossly normal OB - DS: Summary Hospital Course Hospital Course: Elva is a 27 year old G 1 P 1 at 39w1d weeks gestation that was admitted to the Center on 10/16/23 for IOL for polyhydramnios and IVF . She had an vaginal delivery complicated by PP hemorrhage. She delivered a viable female infant. She is , working on a deeper latch. Baby cluster fed last night and some mild nipple pain has started. the patient has done well. Noted hgb drop to 9.7, so iron to be started PP. Her pain is well controlled with current medications.? She has no new complaints.? Urinary output is adequate and she is voiding without difficulty.? Has a good appetite, is tolerating a general diet, is passing flatus, and has not had a bowel movement.? Has scant amount of rubra lochia.? She is ambulating well. Peripartum Data Infant delivery method: Vaginal Laceration description: Perineal - 2nd Degree complications: none and other (PP hemorrhage) Infant Gender: Female Infant Discharge Plan: Home Status at Discharge Functional status at discharge: independent ambulation Overall status at discharge: patient is progressing back to baseline Time Spent with Patient Time spent: Less than 30 minutes Discharge Plan Discharge Disposition: Home, Self-Care Date of Admission: 10/16/23 20:24 Attending Provider on Discharge: Julia Jason Primary Care Provider: Provider,Not a Local Condition: Stable Anticipated Discharge Date/Time: 10/19/23 12:00 Discharge Medications: New docusate sodium 100 mg Capsule 100 mg PO BID PRNQty: 60 0RF ibuprofen 600 mg Tablet 600 mg PO Q6H PRNQty: 60 0RF Lanolin (HPA) 100 % Cream 1 applic topical Q1H PRNQty: 7 3RF ferrous sulfate 325 mg (65 mg iron) tablet 325 mg PO Q OTHER DAY Qty: 90 0RF acetaminophen 500 mg Tablet 1,000 mg PO Q6H PRNQty: 90 0RF Continued bupropion HCl 150 mg tablet sustained-release 12 hr PO DAILY fluticasone furoate 27.5 mcg/actuation spray,suspension 1 spray intranasal QDAY Rx Instructions: into each nostril omega 2-jov-kua-fish oil [Fish Oil] 1,000 mg (120 mg-180 mg) capsule 1 cap PO QDAY with DHA-Folic Acid 400-32.5 mcg-mg tablet,chewable PO Discontinued cetirizine 10 mg tablet 10 mg PO DAILY Unisom (doxylamine) 25 mg tablet 12.5 mg PO QHS PRN Hold Instructions: Doctor's Order aspirin 81 mg tablet,chewable 81 mg PO QDAY omeprazole 20 mg capsule,delayed release(DR/EC) 20 mg PO QDAY Qty: 30 5RF pyridoxine (vitamin B6) 25 mg tablet 25 mg PO QDAY Discharge Orders: Discharge Order (Routine); Ordered 10/19/23 Ordered By: Julia Jason Patient Education: OB Vaginal/Breast Feeding Additional Instructions: Discharge instructions were reviewed with the patient including signs and symptoms of infection and home going medications.? Lifting Restrictions: 20 pounds for 6? weeks? ?? Do not drive while taking narcotic pain meds.? Off Work or School for 6 weeks.? ?? Symptoms to report to doctor:? -Bleeding that saturates more than one pad per hour? -Passing clots larger than the size of a golf ball? -Pain not relieved by prescribed medication? -Fever above 100.4 degrees Fahrenheit? -A foul vaginal odor? -Difficulty in emotions, mood and functions? -Thoughts of hurting yourself and/or ? -Painful, reddened area in your breast? -Any drainage, redness or tenderness in your IV/epidural site? -Severe headache that doesn't improve after taking medications? -Changes in vision, including temporary loss of vision, blurred vision, and/or light sensitivity? -Upper abdominal pain (usually under ribs on the right side)? -Decrease in urination or painful, frequent urinating? -Chest pain? -Shortness of breath? -Tenderness or pain with redness and/swelling in the calf(s) of your leg? ?? Follow Up in clinic in 2 and 6 weeks.? ?? consultation services are available to all mothers and babies for the first year after delivery.? To make an appointment, please call [phone].? Activity Level: Activity as Tolerated Discharge Diet: Regular Follow Up Appointments: [facility] [Provider Group] Provider,Not a Local [Primary Care Provider] - Forms: MyHealth Info Instructions
[2023-10-19 08:14] VITALS: BP 114/81; PULSE 84; RESP 15; TEMP 36.7; O2SAT 96
[2023-10-19] MEDS: DOCUSATE SODIUM 100 MG CAPSULE PO (09:17)
[2023-10-19] MEDS: buPROPion HCL SR 150 MG TAB PO (09:17)
== END 2023-10-19 12:05 | disposition home or self-care (01) | DRG 560 ==
PROVIDERS: Admitting Provider Advanced Practice Midwife; Visit Provider Advanced Practice Midwife
DX: O36.63X0 Maternal care for excessive fetal growth, third trimester, not applicable or unspecified (principal); O40.3XX0 Polyhydramnios, third trimester, not applicable or unspecified; O72.1 Other immediate postpartum hemorrhage; O70.1 Second degree perineal laceration during delivery; O13.4 Gestational [pregnancy-induced] hypertension without significant proteinuria, complicating childbirth; O99.344 Other mental disorders complicating childbirth; F32.A Depression, unspecified; O99.214 Obesity complicating childbirth; Z3A.38 38 weeks gestation of pregnancy; Z37.0 Single live birth
CPT/HCPCS: 36415; 59200; 76819; 82565; 84450; 84460; 85018; 85025; 85027; 86592; 86850; 86900; 86901; A9270; J2001; J2210; J2405; J3010; J7120; S0106